=== PATIENT | male | born 2000 | race Caucasian/White ===

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

== ENCOUNTER 2019-07-02 15:26 | Emergency (ER) | payer BC, SELFPAY ==
[2019-07-02 15:28] VITALS: BP 99/67; PULSE 54; RESP 18; TEMP 36.5; O2SAT 99; BMI 24.0
--- NOTE | 2019-07-02 17:29 | US_ITS ---
STUDY: SCROTUM ULTRASOUND REASON FOR EXAM: Male, 19 years old. Pain. Right testicular pain. TECHNIQUE: Ultrasound evaluation of the scrotum was performed with color Doppler and static carbone-scale imaging. COMPARISON: None. FINDINGS: RIGHT TESTICLE INTRATESTICULAR: There is a normal size of the right testicle. The right testicle measures 1.2 x 3.1 x 2.7 cm. There is a homogenous echotexture. There is normal arterial and normal venous vascularity. There is no demonstrated right testicular mass or cyst. EXTRATESTICULAR: The epididymis is mildly enlarged The epididymis head measures 1.7 x 1.3 x 1.1 cm. There is normal vascularity of the epididymis. There is a 0.6 x 0.4 x 0.3 cm epididymal head cyst. There is no demonstrated hydrocele. There is no demonstrated varicocele. There is no demonstrated extratesticular mass or cyst. LEFT TESTICLE INTRATESTICULAR: There is a normal size of the left testicle. The left testicle measures 5.0 x 3.3 x 2.7 cm. There is a homogenous echotexture. There is normal arterial and normal venous vascularity. There is no demonstrated left testicular mass or cyst. EXTRATESTICULAR: The epididymis is normal in size. The epididymis head measures 1.3 x 0.9 x 1.4 cm. There is normal vascularity of the epididymis. 0.4 x 0.6 x 0.2 cm epididymal head cyst. There is no demonstrated hydrocele. There is no demonstrated varicocele. There is no demonstrated extratesticular mass or cyst. US/Testicular with Arterial Flow IMPRESSION: 1. Normal bilateral testicles. 2. Bilateral epididymal head cysts. 3. No other sonographic evidence of scrotal abnormality. Electronically Signed: Dennis Restrepo DO at 18:09 EDT Tel [phone], Service support ,
[2019-07-02 17:30] VITALS: RESP 16
[2019-07-02 18:45] VITALS: RESP 16
--- NOTE | 2019-07-02 20:04 | ED.DCSUM_ITS ---
- ER Visit Summary Date of Service: 07/02/19 Chief Complaint: Right testicular pain History of Present Illness: The patient is a 19 M who presents with right testicular pain that began yesterday. Patient states I think I have a torsion. Patient states the pain is dull. Patient states the pain is on the right testicle. Patient states the pain is worse with standing. Patient denies any discharge or drainage. Patient denies any dysuria or hematuria. Patient denies any abdominal pain. Patient denies any nausea or vomiting. Physical Examination: Vital signs are stable. Patient is afebrile. Patient is in no acute distress. Oral mucosa is pink and moist. Neck is supple. Trachea is midline. There is no JVD noted. Heart was regular rate and rhythm. Lungs are clear and equal bilaterally. Abdomen is soft. Bowel sounds are normal. There is no tenderness. exam shows mild right testicular tenderness. There is no hernia noted. Testicles are in a vertical lie bilaterally. There is no tenderness over the epididymis. Cremasteric reflex is normal bilaterally. Test Results: Ultrasound of the testicle was obtained. There is good flow. There is no evidence of any torsion. Emergency Department Course and Treatment: Patient was advised of his results. Patient was instructed to follow-up with his primary care physician in 5 to 7 days. Patient was instructed to take Tylenol or ibuprofen as needed for pain. Patient understood and was agreeable with plan. All questions were answered. Disposition: Discharge home Impression: Right testicular pain This note was generated with [employer] dictation software. It may contain incorrect words, spelling, and punctuation that were not noted in review of the chart prior to signing ED Disposition - Plan for ED Patient: Disposition: Home or Assisted Living Diagnosis: Right testicular pain Instructions: TESTICULAR PAIN, Unclear Cause Referrals: Care Physician,No Primary [Primary Care Provider] - Yousuf Grant MD [STAFF PHYSICIAN] - 5-7 Days
[2019-07-02 20:18] VITALS: RESP 16
== END 2019-07-02 20:19 | disposition home or self-care (01) ==
PROVIDERS: Emergency Provider Emergency Medicine
DX: N50.811 Right testicular pain (principal)
CPT/HCPCS: 76870; 93976; 99282

== ENCOUNTER → 2020-02-07 11:52 | Outpatient (CLI) | payer BC, SELFPAY ==
--- NOTE | 2020-02-07 11:56 | US_ITS ---
STUDY: SCROTUM ULTRASOUND REASON FOR EXAM: Male, 20 years old. RT TESTICULAR PAIN ON AND OFF 2YRS TECHNIQUE: Ultrasound evaluation of the scrotum was performed with color Doppler and static carbone-scale imaging. COMPARISON: None. FINDINGS: RIGHT TESTICLE INTRATESTICULAR: There is a normal size of the right testicle. The right testicle measures 5.2 cm x 3.2 cm x 3.1 cm. There is a homogenous echotexture. There is normal arterial and normal venous vascularity. There is no demonstrated right testicular mass or cyst. EXTRATESTICULAR: The epididymis is normal in size. The epididymis head measures 1.2 cm x 1.7 cm x 1.1 cm. There is normal vascularity of the epididymis. There is a well-defined cystic structure within the epididymis, without internal echoes, consistent with an epididymal cyst. This measures 5 mm x 7 mm x 4 mm. There is a small hydrocele. There is no demonstrated varicocele. There is no demonstrated extratesticular mass or cyst. LEFT TESTICLE INTRATESTICULAR: There is a normal size of the left testicle. The left testicle measures 5.3 cm x 3.2 cm x 2.7 cm. There is a homogenous echotexture. There is normal arterial and normal venous vascularity. There is no demonstrated left testicular mass or cyst. EXTRATESTICULAR: The epididymis is normal in size. The epididymis head measures 1 cm x 1.6 cm x 1.2 cm. There is normal vascularity of the epididymis. There are multiple small epididymal cysts. The largest measures 4 mm x 3 mm x 4 mm. There is a small hydrocele. There is no demonstrated varicocele. There is no demonstrated extratesticular mass or cyst. US/Testicular with Arterial Flow IMPRESSION: Small bilateral epididymal cysts right greater than left with tiny bilateral hydroceles. Electronically Signed: Rickey Valdez, at 15:40 EDT , Service support ,
== END ==
PROVIDERS: PCP Nurse Practitioner; Referring Provider Nurse Practitioner; Visit Provider Nurse Practitioner
DX: N50.811 Right testicular pain (principal)
CPT/HCPCS: 76870; 93976

== ENCOUNTER 2023-01-16 02:13 | Inpatient (IN) | payer BC, SELFPAY ==
[2023-01-16] VITALS (12 sets, daily range): BP systolic 90–142; BP diastolic 62–76; PULSE 61–96; RESP 15–22; TEMP 36.4–37.7; O2SAT 96–100; BMI 26.4
--- NOTE | 2023-01-16 02:54 | EDS_ITS ---
HPI History of Present Illness Chief Complaint: Chest Other Informant: patient Onset/Context/Timing Onset: Weeks (2) Context: Sudden Onset Timing: Continuous Quality: Popping sensation Location: Right chest Worsened by: Coughing Relieved by: Rest Narrative Narrative: CoughPresents with right-sided chest pain that has been constant for the past 2 weeks. Patient states it started suddenly 2 weeks ago and episode. Patient states he felt some popping in his chest at that time. Patient states that he had another coughing episode tonight and felt the same popping sensation in the right side of his chest. Patient states his pain is worse with coughing. Patient states his pain is better with resting in a comfortable position. Patient denies any shortness of breath. Patient denies any palpitations. Patient does admit to a recent sore throat. Patient denies any fevers or chills. Patient denies any nausea or vomiting. PFSH PFSH Medical History Anxiety and depression Tobacco use Medical History no medical history no medical history Home Medications sertraline 25 mg tablet (Zoloft) 25 mg PO DAILY 01/04/23 [History Last Taken Unknown] amoxicillin 875 mg-potassium clavulanate 125 mg tablet 1 tab PO BID 01/16/23 [History Last Taken Unknown] Allergy/AdvReac Type Severity Reaction Status Date / Time azithromycin Allergy Rash Verified 01/16/23 02:18 iodine Allergy Rash Verified 01/16/23 02:18 Surgical History no surgical history no surgical history Social History Smoking Status: Current every day smoker tobacco type: e-cigarettes ROS ROS ED Constitutional Constitutional ED: Denies chills or fever(s) Eyes Eyes: Denies blurry vision or change in vision ENT ENT ED: Reports sore throat; Denies rhinorrhea Cardiovascular Cardiovascular: Reports chest pain; Denies palpitations Respiratory/Chest Respiratory/Chest: Reports cough; Denies dyspnea Gastrointestinal Gastrointestinal: Denies nausea or vomiting Genitourinary Genitourinary ED: Denies dysuria or hematuria Musculoskeletal Musculoskeletal: Denies back pain or neck pain Integumentary Denies abscess or rash Neurologic Neurologic: Denies headache(s) or weakness Allergic/Immunologic Allergic/Immunologic ED: Denies mouth swelling or urticaria EXAM Physical Exam Const Vital Signs: 01/16/23 02:14 01/16/23 02:18 01/16/23 05:23 Temperature 98.6 F Temperature Source Temporal Pulse Rate 67 70 Respiratory Rate 18 16 Respiratory Pattern Normal Blood Pressure 125/64 H Blood Pressure Mean 84 Pulse Ox 99 Oxygen Delivery Method Room Air 01/16/23 05:19 Temperature Temperature Source Pulse Rate 70 Respiratory Rate 15 Respiratory Pattern Blood Pressure 129/64 H Blood Pressure Mean 85 Pulse Ox 96 Oxygen Delivery Method Room Air Positive well nourished and well developed General Appearance ED: well developed HEENT Reports moist mucous membranes Neck supple and no JVD Resp normal respiratory effort and clear to auscultation bilaterally Cardio regular rate, regular rhythm and no murmurs GI normal to inspection, nondistended, normoactive bowel sounds and non-tender Palpation: soft Extremity normal to inspection General Extremety ED: Negative for edema or tenderness General Extremity: Negative for edema Neuro oriented x3, CN's II-XII intact bilaterally and no sensory deficits noted Sensorium / Orientation: alert Motor Exam: strength 5/5 throughout Psych mental status grossly normal Skin no rashes or lesions noted MDM MDM MDM Narrative Medical decision making narrative: Differential diagnosis includes pneumothorax, pneumonia, and musculoskeletal chest pain. Chest x-ray will be obtained to assess for pneumonia and pneumothorax. Lab Data Attestation: I reviewed the patient's lab results. Lab results narrative: CBC was reviewed and was within normal limits. Comprehensive metabolic profile was reviewed and was within normal limits. COVID-19 rapid antigen was reviewed and was negative. Influenza A and influenza B rapid antigens were reviewed and were negative. Labs: Laboratory Results - last 24 hr 01/16/23 01/16/23 05:30 05:30 WBC 10.8 RBC 4.56 L Hgb 13.6 Hct 41.9 MCV 91.9 MCH 29.8 MCHC 32.5 RDW Std Deviation 42.9 RDW Coeff of Starr 12.8 Plt Count 282 MPV 9.5 Immature Gran % (Auto) 0.200 Neut % (Auto) 71.1 H Lymph % (Auto) 14.9 L [place] % (Auto) 2.4 Eos % (Auto) 10.8 H Baso % (Auto) 0.6 Absolute Neuts (auto) 7.7 Absolute Lymphs (auto) 1.61 Nucleated RBC % 0 Sodium 139 Potassium 4.5 Chloride 106 Carbon Dioxide 29.0 Anion Gap 4 L BUN 18 Creatinine 0.84 Estim Creat Clear Calc 127.87 Est GFR (MDRD) Af Amer 144 Est GFR (MDRD) Non-Af 119 BUN/Creatinine Ratio 21.4 H Glucose 112 H Calcium 9.5 Total Bilirubin 0.20 AST 13 L ALT 16 Alkaline Phosphatase 80 Total Protein 7.0 Albumin 3.9 Globulin 3.1 Albumin/Globulin Ratio 1.3 Radiography Chest X-Ray - ED: 2 View, Read by ED Physician, Read by Radiologist and Right Infiltrate Diagnostic Testing: Clinical Impression(s) from Imaging Studies Chest X-Ray 01/16/23 02:57 IMPRESSION: Focal masslike density right upper lobe may have a subtle lucent center which most likely represents pneumonia. There is a trace right effusion. Given the question of possible cavitation in right effusion recommend consideration for CT scan of the chest Electronically Signed: Ginger Harris MD at 3:21 EST , Chest CTA 01/16/23 03:23 IMPRESSION: Multifocal patchy masslike consolidation ranging in size to 4 to 1.5 cm within the upper lung zones. See image #52 series 601. Some with cavitation. The differential includes the possibility of a post primary tuberculous pneumonia versus the possibility of cavitary pneumonia. Potentially covid could have a cavitary appearance but typically the viral pneumonia is not isolated to the upper lung zones.. The differential include the possibility of septic emboli although thought to BE less likely given the primarily upper lung predominance. Electronically Signed: Ginger Harris MD at 5:09 EST , ADDENDUM: 01/16/23 0520 IMPRESSION: Multifocal patchy masslike consolidation ranging in size to 4 to 1.5 cm within the upper lung zones. See image #52 series 601. Some with cavitation. The differential includes the possibility of a post primary tuberculous pneumonia versus the possibility of cavitary pneumonia. Potentially covid could have a cavitary appearance but typically the viral pneumonia is not isolated to the upper lung zones.. The differential include the possibility of septic emboli although thought to BE less likely given the primarily upper lung predominance. N.B. : The above Results were Read Back by Ginger Harris MD to Ryan Muñoz DO, and understanding confirmed on 01/16/2023 05:13:44 (ET). Electronically Signed: Ginger Harris MD at 5:09 EST , PA and lateral chest x-ray was obtained. There are 2 views. On my independent interpretation, there is a questionable infiltrate in the right upper lobe. Radiologist also interpreted the x-ray and noted question of a possible cavitation in the density which would likely represent pneumonia. There is also trace right pleural effusion. Radiologist recommended CT scan of the chest. CTA of the chest was obtained. There are multifocal patchy masslike consolidations in the upper lung zones bilaterally. There are some with cavitation. There is no evidence of pulmonary embolus. This was interpreted by the radiologist and was also independently reviewed by myself. Treatment and Re-Evaluation Narrative: Patient was given a DuoNeb aerosol here. Patient was given a dose of Naprosyn. Since patient is allergic to iodine, patient was given Benadryl and Solu-Medrol prior to obtaining the CT scan. On further questioning, patient states he has been coughing up occasional yellow sputum. Patient denies any hemoptysis or blood-tinged sputum. Patient denies any fevers or chills. Patient denies any exposure to tuberculosis. Because of the question for the cavitary lesions, further lab work was obtained. CBC was obtained to assess for leukocytosis and anemia. Comprehensive metabolic profile was obtained to assess for hepatic function, renal function, and electrolyte abnormality. Blood cultures were obtained. Sputum culture was ordered. COVID-19 rapid antigen will be obtained to assess for COVID infection. Influenza A and influenza B rapid antigens were will be obtained to assess for influenza infection. Patient was started on Levaquin. The case was discussed with the hospitalist. She will admit the patient to her service. Patient understands and is agreeable with the plan. All questions were answered. Discharge Plan Dx/Rx/DC Orders Clinical Impression: Pneumonia, Chest pain Disposition Disposition: Acute Care Hospital [facility]
--- NOTE | 2023-01-16 02:57 | RAD_ITS ---
STUDY: X-RAY CHEST REASON FOR EXAM: Male, 22 years old. Chest pain TECHNIQUE: PA and lateral views of the chest. COMPARISON: None. FINDINGS: There is a visualized focal masslike density within the right upper lobe this may have a subtle lucent center. There is a trace right effusion. Normal size heart. Normal mediastinum and yesy. Normal visualized pulmonary arteries. Normal visualized aortic arch and descending thoracic aorta. Normal visualized thoracic spine. Normal visualized ribs, clavicles, and shoulders. There is no demonstrated abnormality of the visualized soft tissue structures of the upper abdomen. RAD/Chest PA and Lateral IMPRESSION: Focal masslike density right upper lobe may have a subtle lucent center which most likely represents pneumonia. There is a trace right effusion. Given the question of possible cavitation in right effusion recommend consideration for CT scan of the chest Electronically Signed: Ginger Harris MD at 3:21 EST ,
[2023-01-16] MEDS: Naproxen 250 MG Tablet 500 MG PO (03:04)
--- NOTE | 2023-01-16 03:23 | CT_ITS ---
We are attempting to reach an attending provider to discuss findings. An addendum with communication details will be sent when the communication is complete. STUDY: CTA CHEST REASON FOR EXAM: Male, 22 years old. Mass RADIATION DOSAGE (If Supplied By Facility): CTDIvol = ( 7.60 ) mGy, DLP = ( 301.01 ) mGycm TECHNIQUE: The examination was performed with the intravenous administration of IV 100mL Isovue-370. Post-processing of the angiographic images was performed, with multiplanar reformation and 3D reconstruction. Individualized dose optimization techniques were used for this CT. COMPARISON: Chest x-ray January 16, 2023 FINDINGS: Normal enhancement of the main pulmonary artery and right and left pulmonary arteries. Normal enhancement of the bilateral peripheral pulmonary arteries. There is no demonstrated pulmonary embolism. Normal thoracic aorta and visualized great vessels. There is no demonstrated aortic dissection. Normal heart and pericardium. There is a suggestion that there is residual thymus. Normal hilar regions. Normal visualized trachea and bronchi. There is a visualized focus of consolidation measuring approximately 4.3 x 3.5 x 3.4 cm, within the right apex of the masslike appearance. There is a portion of this density which suggests possible cavitation. There are multifocal smaller densities within the lung apices measuring 1 to 1.5 cm some with lucent centrally located lucencies suggesting cavitation. This process is primarily within the upper lung zones. There is minimal lower lobe atelectasis and/or groundglass opacity. Normal pleura. Normal chest wall structures. Normal osseous structures. Normal visualized upper abdomen. CT/CTA Chest W/WO Contrast IMPRESSION: Multifocal patchy masslike consolidation ranging in size to 4 to 1.5 cm within the upper lung zones. See image #52 series 601. Some with cavitation. The differential includes the possibility of a post primary tuberculous pneumonia versus the possibility of cavitary pneumonia. Potentially covid could have a cavitary appearance but typically the viral pneumonia is not isolated to the upper lung zones.. The differential include the possibility of septic emboli although thought to BE less likely given the primarily upper lung predominance. Electronically Signed: Ginger Harris MD at 5:09 EST ,
[2023-01-16] MEDS: MethylPREDNISolone 125 MG/2 ML Vial 80 MG IV (03:35)
[2023-01-16] MEDS: DiphenhydrAMINE 50 MG/ML Syringe 25 MG IV (03:35)
[2023-01-16] MEDS: Ipratropium/Albuterol Sulfate 3 ML AMPUL.NEB INHALATION ×3 (05:21→20:06)
[2023-01-16 05:39] LABS: Absolute Lymphocyte Count 1.61 X10^3/uL (0.83-4.51); Absolute Neutrophil Count 7.7 X10^3/uL (2.0-7.7); Basophil# 0.06 X10^3/uL; Basophil% 0.6 % (0-1); Eosinophil# 1.17 X10^3/uL; Eosinophils% 10.8 % (0-5); Hematocrit 41.9 % (40-54); Hemoglobin 13.6 g/dL (13.0-16.5); Lymphocyte # 1.61 X10^3/ul (0.83-4.51); Lymphocyte % 14.9 % (19-41); Mean Corp Hgb Conc 32.5 g/dL (32-36); Mean Corpuscular Hgb 29.8 pg (27.0-32.0); Mean Corpuscular Volume 91.9 fL (80-94); Mean Platelet Vol. 9.5 fl (6.2-12.0); Monocyte# 0.26 X10^3/uL; Monocyte% 2.4 % (0-10); NRBC Flagged by Analyzer 0 % (0-5); Neutrophil # 7.68 X10^3/uL (2.7-7.7); Neutrophil % 71.1 % (47-70); Platelet Count 282 K/mm3 (150-450); RBC Distribution Width CV 12.8 % (11.6-14.6); RBC Distribution Width SD 42.9 fl (35.1-43.9); Red Blood Count 4.56 M/mm3 (4.6-6.2); White Blood Count 10.8 K/mm3 (4.4-11.0)
--- NOTE | 2023-01-16 05:53 | HP.PCM_ITS ---
HPI - General General Date of Admission: 01/16/23 Date of Service: 01/16/23 Chief Complaint: Cough, persistent, atypical chest popping with coughing fits. HPI Narrative The patient is a 22 y/o M w/ PMHx: Anxiety and Depression, Tobacco use who presents to the [facility] ED on 01/16/23 with history of 2 to 3-week history of ongoing sinus congestion and pressure as well as facial discomfort in addition to cough with initially mild symptom improvement however patient worsened and at the time did not have any fever, chills, diaphoresis, nausea, emesis or loose stools or any marked dyspnea days it is worsened again with no specific fever, chills, diaphoresis, nausea, emesis or loose stools nor any marked dyspnea prompting initial urgent care evaluation 01/04/23 with prescription for Augmentin at that time and recommendation for repeat evaluation in 7 to 10 days if no improvement or worsening symptoms with patient now presenting secondary to persistent ongoing coughing with constant right-sided chest discomfort that has not abated with coughing episode on evening prior to day of presentation with sensation of a popping during the coughing fit on the right side of the chest with right- sided chest discomfort specifically worsened with coughing and deep inspiratory effort with improvement with rest with concurrent sore throat prompting eventual ED evaluation. Patient denies any shortness of breath, fever, chills, nausea or dyspnea and primarily presented secondary to discomfort to the right chest and persistent coughing. Patient denies any drug usage aside from cannabis including IV drug abuse. He denies any activities which would put him at risk for HIV. He reports being in a monogamous relationship with his girlfriend who is present. Work-up in the ED included T98.6, heart rate 67, BP 125/64, respiratory rate 18, 99% on room air, chest x-ray with a focal masslike density in the right upper lobe with possibly subtle lucent center likely technical account representative of pneumonia with a trace right pleural effusion, follow-up CTPA with multifocal patchy masslike consolidation ranging from 4 to 1.5 cm within the upper lung zones with some cavitation occluding possible primary tuberculosis pneumonia versus possibility of cavitary pneumonia, potentially COVID could have a cavitary appearance but typically the viral pneumonia is not consolidated in the upper zones, differential also includes possible septic emboli although thought to be PE less likely given the primary upper lung predominance. In the ED patient administered naproxen 500 mg p.o. x1, Solu-Medrol 80 mg IV x1, diphenhydramine 25 mg IV x1 both administered secondary to history of rash with iodine administration as well as DuoNeb therapy and Levaquin 750 mg IV x1. PFSH Medical History Anxiety and depression Vaping nicotine dependence, tobacco product Medical History no medical history Home Medications sertraline 25 mg tablet (Zoloft) 25 mg PO DAILY 01/04/23 [History Last Taken Unknown] amoxicillin 875 mg-potassium clavulanate 125 mg tablet 1 tab PO BID 01/16/23 [History Last Taken Unknown] Allergy/AdvReac Type Severity Reaction Status Date / Time azithromycin Allergy Rash Verified 01/16/23 02:18 iodine Allergy Rash Verified 01/16/23 02:18 no significant family history (Denies marked maternal/paternal family history including HD, DM, CA.) Surgical History (Updated 01/16/23 @ 06:[address] Camryn Palma MD) History of tonsillectomy and adenoidectomy Surgical History no surgical history Social History (Updated 01/16/23 @ 06:[address] Camryn Palma MD) household members: other details: Lives with his parents. Smoking Status: Current every day smoker tobacco type: e-cigarettes Electronic Cigarette Use: with nicotine alcohol intake: current alcohol intake frequency: holidays/special occasions only substance use type: does not use ROS ROS Narrative Admission Review of Systems: CONSTITUTIONAL: No weight loss, fever, chills, + weakness or fatigue. HEENT: + Congestion, sore throat although improved. Eyes: No visual loss, blurred vision, double vision or yellow sclerae. Ears, Nose, Throat: No hearing loss, sneezing, runny nose. SKIN: No rash or itching, lesions, wounds. CARDIOVASCULAR: + chest pain, chest pressure or chest discomfort. No palpitations, edema, orthopnea, syncopal events. RESPIRATORY: + Cough occasionally productive. No shortness of breath, wheezing, hemoptysis. GASTROINTESTINAL: No anorexia, nausea, vomiting or diarrhea, abdominal pain, melena, BRBPR. GENITOURINARY: No dysuria, frequency, urgency or retention. NEUROLOGICAL: No headache, dizziness, syncope, paralysis, ataxia, numbness or tingling in the extremities, focal weakness, change in bowel or bladder control, seizure. MUSCULOSKELETAL: No muscle, back pain, joint pain or stiffness. HEMATOLOGIC: No anemia, bleeding or bruising. LYMPHATICS: No enlarged nodes. No history of splenectomy. PSYCHIATRIC: + history of depression or anxiety. ENDOCRINOLOGIC: No reports of sweating, cold or heat intolerance. No polyuria or polydipsia. ALLERGIES: No history of asthma, hives, eczema or rhinitis. Vital Signs Vital Signs Vital Signs: 01/16/23 02:14 01/16/23 02:18 01/16/23 05:23 Temperature 98.6 F Temperature Source Temporal Pulse Rate 67 70 Respiratory Rate 18 16 Respiratory Pattern Normal Blood Pressure 125/64 H Blood Pressure Mean 84 Pulse Ox 99 Oxygen Delivery Method Room Air 01/16/23 05:19 Temperature Temperature Source Pulse Rate 70 Respiratory Rate 15 Respiratory Pattern Blood Pressure 129/64 H Blood Pressure Mean 85 Pulse Ox 96 Oxygen Delivery Method Room Air Weight Weight: 169 lb 1.513 oz Body Mass Index (BMI) 26.4 Physical Exam Narrative Physical Examination: General: Awake, alert, oriented x 3 and cooperative, seated upright in the ED bed, no acute distress. Skin: Normal color, normal turgor, no icterus, no cyanosis. HEENT: AT/NC, EOMI, PERRLA, MMM, no carotid bruits or JVD noted. Lungs: Mildly diminished, mildly decreased effort but no evidence of any distress, despite CT findings no rales, ronchi or wheezing. Heart: Currently regular rate and rhythm; no gallop, rub audible. Abdomen: Soft, NTTP, ND, mildly hyperactive BS, no HSM. Extremities: No cyanosis, clubbing, or edema. Neurological: Patient awake, alert, oriented as noted, cognitive function intact; pupils equally reactive to light and accommodation, cranial nerves II- XII grossly normal, moving all 4 extremities, no focal deficits, strength preserved. Psychiatric: Affect appears mildly fatigued otherwise normal, no acute evidence of depressive or anxiety feelings but does have underlying history. Results Lab / Micro Data Result Diagrams: 01/16/23 05:30 01/16/23 05:30 Labs: Laboratory Results - last 24 hr 01/16/23 05:30: WBC 10.8, RBC 4.56 L, Hgb 13.6, Hct 41.9, MCV 91.9, MCH 29.8, MCHC 32.5, RDW Std Deviation 42.9, RDW Coeff of Starr 12.8, Plt Count 282, MPV 9.5, Immature Gran % (Auto) 0.200, Neut % (Auto) 71.1 H, Lymph % (Auto) 14.9 L, [place] % (Auto) 2.4, Eos % (Auto) 10.8 H, Baso % (Auto) 0.6, Absolute Neuts (auto) 7.7, Absolute Lymphs (auto) 1.61, Nucleated RBC % 0 Micro: Microbiology 01/16/23 05:25 Nasal Secretion SARS-CoV-2 & FLU Antigen (Rapid) - Final Radiology Impression Chest X-Ray 01/16/23 02:57 IMPRESSION: Focal masslike density right upper lobe may have a subtle lucent center which most likely represents pneumonia. There is a trace right effusion. Given the question of possible cavitation in right effusion recommend consideration for CT scan of the chest Electronically Signed: Ginger Harris MD at 3:21 EST , Chest CTA 01/16/23 03:23 IMPRESSION: Multifocal patchy masslike consolidation ranging in size to 4 to 1.5 cm within the upper lung zones. See image #52 series 601. Some with cavitation. The differential includes the possibility of a post primary tuberculous pneumonia versus the possibility of cavitary pneumonia. Potentially covid could have a cavitary appearance but typically the viral pneumonia is not isolated to the upper lung zones.. The differential include the possibility of septic emboli although thought to BE less likely given the primarily upper lung predominance. Electronically Signed: Ginger Harris MD at 5:09 EST , ADDENDUM: 01/16/23 0520 IMPRESSION: Multifocal patchy masslike consolidation ranging in size to 4 to 1.5 cm within the upper lung zones. See image #52 series 601. Some with cavitation. The differential includes the possibility of a post primary tuberculous pneumonia versus the possibility of cavitary pneumonia. Potentially covid could have a cavitary appearance but typically the viral pneumonia is not isolated to the upper lung zones.. The differential include the possibility of septic emboli although thought to BE less likely given the primarily upper lung predominance. N.B. : The above Results were Read Back by Ginger Harris MD to Ryan Muñoz DO, and understanding confirmed on 01/16/2023 05:13:44 (ET). Electronically Signed: Ginger Harris MD at 5:09 EST , Assessment & Plan Assessment/Plan (1) Pneumonia: PLAN: Plan The patient is a 22 y/o M w/ PMHx: Anxiety and Depression, Tobacco use who presents to the [facility] ED on 01/16/23 with history of 2 to 3-week history of ongoing sinus congestion and pressure as well as facial discomfort in addition to cough with initially mild symptom improvement however patient worsened and at the time prompting initial urgent care evaluation 01/04/23 with prescription for Augmentin at that time and recommendation for repeat evaluation in 7 to 10 days if no i mprovement or worsening symptoms with patient now presenting secondary to persistent ongoing coughing. #1. Right upper lobe pneumonia, unclear specific type with cavitation: Will admit to medical surgical floor, pending labs upon requested evaluation of patient, will obtain HIV/hepatitis panel, will obtain COVID PCR and full respiratory viral panel, will obtain sputum mycobacterial assessment, will obtain urine drug screen, maintain on oxygen with wean as tolerated to room air, continue ATC duonebs, PRN albuterol, maintain on IV Zosyn and vancomycin therapy with requested MRSA screen pending further evaluation, pulmonary consulted as well as infectious disease with airborn precautious pending their evaluation to be cautious, encourage HOB, IS parameters w/ pending sputum cultures as well as urine antigens in addition to testing as noted. #2. Anxiety and depression: We will continue patient home low-dose sertraline regimen. #3. Tobacco Abuse: Encouraged cessation, inpatient consultation per RT, NR if desired. #4. DVT prophylaxis: Low risk, encourage ambulation. Admission Evaluation Time spent evaluating chart, patient history, patient evaluation, care planning and discussion with specialists: 60 minutes. Charges/Coding Visit Charges Inpatient E&M: 61932 Init Hosp L2
[2023-01-16 05:56] LABS: ALB/GLOB Ratio 1.3 RATIO (0.9-2.4); AST(SGOT) 13 U/L (15-37); Alanine Aminotransfer ALT/SGPT 16 U/L (16-61); Albumin, Serum 3.9 g/dL (3.2-5.0); Alkaline Phosphatase 80 U/L (45-117); Anion Gap 4 (5-15); BUN 18 mg/dL (7-18); BUN/Creat Ratio 21.4 RATIO (10-20); Calcium,Total 9.5 mg/dL (8.5-10.1); Chloride 106 mmol/L (98-107); Creatinine, Serum 0.84 mg/dL (0.70-1.30); EST Glomerular Filtration Rate 119 mL/min (>60); Est Glom Filt Rate - Afr Amer 144 mL/min (>60); Estimated Creatinine Clearance 127.87 ml/min; Globulin 3.1 g/dL (2.2-4.2); Glucose 112 mg/dL (74-106); Potassium 4.5 mmol/L (3.5-5.1); Sodium Level 139 mmol/L (136-145)
[2023-01-16] MEDS: levoFLOXacin IV 750 MG/150 ML BAG 100 MG IV (05:58)
[2023-01-16 06:46] LABS: Amphetamine Urine VISTA NEGATIVE (<1000 ng/mL); Barbiturate Urine VISTA NEGATIVE (< 200 ng/mL); Benzodiazepine Urine VISTA NEGATIVE (< 200 ng/mL); Cocaine Urine VISTA NEGATIVE (< 300 ng/mL); Ecstacy Urine VISTA NEGATIVE (< 500 ng/mL); Methadone Urine VISTA NEGATIVE (< 300 ng/mL); PCP Urine VISTA NEGATIVE (< 25 ng/mL); THC Urine VISTA POSITIVE (< 50 ng/mL); Vista UDS pH Range 6
--- NOTE | 2023-01-16 06:49 | NURSING ---
312 WHITE PNEUMONIA, CHEST PAIN
--- NOTE | 2023-01-16 07:17 | PCM.HOSP.N ---
Hospitalist Note 22-year-old white male who presented to the emergency department with persistent coughing and atypical chest pain. This has been ongoing for approximately 2 to 3 weeks prior to presentation and had sinus congestion and pressure as well as facial discomfort in the addition to his cough. He was seen in the urgent care on 01/04/2023 and prescribed with Augmentin with recommended reevaluation in 7 to 10 days if no improvement or worsening of symptoms. He presents emergency department with persistent ongoing cough and constant right-sided chest discomfort that had not abated he had a coughing episode the evening prior at which time he had a sensation of popping during a coughing fit on the right side of his chest and his chest discomfort worsened at that time. Pain seems to be pleuritic in nature. He had a concurrent sore throat and evaluation as well. Patient denied any drug use other than cannabis on presentation. He is a monogamous relationship with his girlfriend. Vital signs were overall stable and fairly unremarkable on presentation. CTA of his chest was performed and showed a multifocal patchy masslike consolidation ranging from 4 to 1.5 cm within the upper lung zones demonstrating some cavitation. Patient was placed IV vancomycin and Zosyn were ordered. Pulmonary consultation as well as ID consultation with airborne precautions to the concerns for TB were initiated. Blood cultures have been obtained. COVID/flu testing was negative. Hepatitis and HIV studies were ordered. Oxygen saturations have been 96 to 99% on room air. Pulmonary medicine has been consulted. ID has been consulted.
[2023-01-16 07:45] LABS: HIV - WCH Non-Reactive (Nonreactive); Hepatitis B Surface Antibody Reactive; Hepatitis B Surface Antigen Non-Reactive (Nonreactive); Hepatitis C Antibody Non-Reactive (Nonreactive)
[2023-01-16 07:46] LABS: Procalcitonin < 0.04 ng/mL (0.00-0.09)
[2023-01-16] MEDS: 0.9% Normal Saline 1,000 ML 100 ML IV ×2 (08:26→15:48)
[2023-01-16] MEDS: Sertraline 50 MG Tablet 25 MG PO (09:42)
[2023-01-16 14:33] LABS: M R Staph aureus DNA By PCR Negative (Negative); Probe Check PASS; Specimen Processing Control PASS
--- NOTE | 2023-01-16 14:33 | PCM.RX.CS ---
Consult Pharmacy has been consulted to manage selected antiobiotic: Vancomycin Type of Consult: New start Suspected Infection: Pneumonia Labs: Sodium 139 mmol/L (136-145) 01/16/23 05:30 Potassium 4.5 mmol/L (3.5-5.1) 01/16/23 05:30 Chloride 106 mmol/L (98-107) 01/16/23 05:30 Carbon Dioxide 29.0 mmol/L (21.0-32.0) 01/16/23 05:30 Anion Gap 4 (5-15) L 01/16/23 05:30 BUN 18 mg/dL (7-18) 01/16/23 05:30 Creatinine 0.84 mg/dL (0.70-1.30) 01/16/23 05:30 Est GFR (MDRD) Af Amer 144 mL/min (>60) 01/16/23 05:30 Est GFR (MDRD) Non-Af 119 mL/min (>60) 01/16/23 05:30 BUN/Creatinine Ratio 21.4 RATIO (10-20) H 01/16/23 05:30 Glucose 112 mg/dL (74-106) H 01/16/23 05:30 Microbiology: Microbiology 01/16/23 06:10 Urine, Clean Catch Legionella Antigen - Final 01/16/23 06:10 Urine, Clean Catch Streptococcus pneumoniae Antigen (M - Final 01/16/23 05:25 Nasal Secretion SARS-CoV-2 & FLU Antigen (Rapid) - Final Goal Trough: 15-20 mcg/mL Pharmacy Plan for Drug Dosing: NEW START IV VANCOMYCIN Consulting Physician: Dr. Palma Indication: Pneumonia Goal Trough: 15-20 SrCr: 0.84 CrCl: 128 mls/min Comments: pt received a 2000mg x1 loading dose on 01/16/23 at 1115 Vancomycin Dose: based on pts weight and renal function, recommend an initial dose of 1250mg q8h. trough prior to the 4th total dose. Note: dose calculated using clinical pharmacology. Pending Level: 01/17/23 at 1030 Pharmacy Service will continue to monitor and adjust dosing as required. Follow-Up Labs: Trough Vancomycin - 01/17/23 at 1030
--- NOTE | 2023-01-16 15:32 | CPS ---
sent first TB sample at 15:15, charge nurse aware
[2023-01-17] VITALS (10 sets, daily range): BP systolic 118–147; BP diastolic 61–80; PULSE 65–97; RESP 12–18; TEMP 35.9–37.4; O2SAT 98–100
[2023-01-17] MEDS: Ipratropium/Albuterol Sulfate 3 ML AMPUL.NEB INHALATION ×4 (01:13→19:05)
[2023-01-17] MEDS: 0.9% Normal Saline 1,000 ML 100 ML IV ×2 (02:11→13:30)
[2023-01-17 07:00] LABS: Absolute Lymphocyte Count 2.51 X10^3/uL (0.83-4.51); Absolute Neutrophil Count 5.3 X10^3/uL (2.0-7.7); Basophil# 0.04 X10^3/uL; Basophil% 0.5 % (0-1); Eosinophil# 0.27 X10^3/uL; Eosinophils% 3.1 % (0-5); Hematocrit 38.8 % (40-54); Lymphocyte # 2.51 X10^3/ul (0.83-4.51); Lymphocyte % 29.2 % (19-41); Mean Corp Hgb Conc 33.5 g/dL (32-36); Mean Corpuscular Hgb 30.5 pg (27.0-32.0); Mean Corpuscular Volume 91.1 fL (80-94); Mean Platelet Vol. 9.2 fl (6.2-12.0); Monocyte# 0.46 X10^3/uL; Monocyte% 5.3 % (0-10); NRBC Flagged by Analyzer 0 % (0-5); Neutrophil % 61.6 % (47-70); Platelet Count 234 K/mm3 (150-450); RBC Distribution Width CV 13.1 % (11.6-14.6); RBC Distribution Width SD 43.1 fl (35.1-43.9); Red Blood Count 4.26 M/mm3 (4.6-6.2); White Blood Count 8.6 K/mm3 (4.4-11.0)
[2023-01-17 07:26] LABS: ALB/GLOB Ratio 1.1 RATIO (0.9-2.4); AST(SGOT) 8 U/L (15-37); Alanine Aminotransfer ALT/SGPT 13 U/L (16-61); Albumin, Serum 3.2 g/dL (3.2-5.0); Alkaline Phosphatase 55 U/L (45-117); Anion Gap 7 (5-15); BUN 8 mg/dL (7-18); BUN/Creat Ratio 10.2 RATIO (10-20); Calcium,Total 8.3 mg/dL (8.5-10.1); Chloride 113 mmol/L (98-107); Creatinine, Serum 0.79 mg/dL (0.70-1.30); EST Glomerular Filtration Rate 129 mL/min (>60); Est Glom Filt Rate - Afr Amer 156 mL/min (>60); Estimated Creatinine Clearance 135.97 ml/min; Globulin 2.8 g/dL (2.2-4.2); Glucose 103 mg/dL (74-106); Potassium 3.5 mmol/L (3.5-5.1); Sodium Level 145 mmol/L (136-145)
--- NOTE | 2023-01-17 09:48 | PN.HOSP_ITS ---
Reason for Visit Reason for Visit: Diagnoses Pneumonia, unspecified organism (01/16/23) Subjective Subjective Still has some sharp right-sided pain, cough improving and not as productive, denies shortness of breath or other complaints Objective Data Objective Data Vital Signs: Vital Signs Temp Pulse Resp BP Pulse Ox O2 Del Method 97.1 F L 65 16 121/62 H 100 Room Air 01/17/23 09:18 01/17/23 09:18 01/17/23 09:18 01/17/23 09:18 01/17/23 09:18 01/17/23 09:30 Oxygen Delivery Method Room Air Weight: 76.748 kg Body Mass Index (BMI) 26.4 Intake & Output: Intake and Output for Last 24 Hours 01/15/23 01/16/23 01/17/23 23:59 23:59 23:59 Intake Total 2759.80 / 2759.80 1685 / 1685 Balance 2759.80 / 2759.80 1685 / 1685 Lab / Micro Data Result Diagrams: 01/17/23 06:50 01/17/23 06:50 Labs: Laboratory Results - last 24 hr 01/16/23 08:02: MRSA (PCR) Negative 01/17/23 06:50: WBC 8.6, RBC 4.26 L, Hgb 13.0, Hct 38.8 L, MCV 91.1, MCH 30.5, MCHC 33.5, RDW Std Deviation 43.1, RDW Coeff of Starr 13.1, Plt Count 234, MPV 9.2, Immature Gran % (Auto) 0.300, Neut % (Auto) 61.6, Lymph % (Auto) 29.2, [place] % (Auto) 5.3, Eos % (Auto) 3.1, Baso % (Auto) 0.5, Absolute Neuts (auto) 5.3, Absolute Lymphs (auto) 2.51, Nucleated RBC % 0 01/17/23 06:50: Sodium 145, Potassium 3.5, Chloride 113 H, Carbon Dioxide 25.0, Anion Gap 7, BUN 8, Creatinine 0.79, Estim Creat Clear Calc 135.97, Est GFR (MDRD) Af Amer 156, Est GFR (MDRD) Non-Af 129, BUN/Creatinine Ratio 10.2, Glucose 103, Calcium 8.3 L, Total Bilirubin 0.50, AST 8 L, ALT 13 L, Alkaline Phosphatase 55, Total Protein 6.0 L, Albumin 3.2, Globulin 2.8, Albumin/Globulin Ratio 1.1 Micro: Microbiology 01/16/23 06:07 Mucosa - Nose Respiratory Panel (PCR) - Final 01/16/23 15:15 Sputum, Expectorated/Coughed Gram Stain - Preliminary 01/16/23 06:10 Urine, Clean Catch Legionella Antigen - Final 01/16/23 06:10 Urine, Clean Catch Streptococcus pneumoniae Antigen (M - Final 01/16/23 05:25 Nasal Secretion SARS-CoV-2 & FLU Antigen (Rapid) - Final Physical Exam Narrative General: Alert, oriented, no apparent distress HEENT: Atraumatic, normocephalic Eyes: Anicteric, normal conjunctiva, extraocular movements grossly intact Neck: Supple Respiratory: No wheezes or rhonchi, normal respiratory effort Cardiovascular: Regular rate and rhythm GI: Soft, nontender, nondistended Extremities: No edema Musculoskeletal: Moving all extremities Neuro: No overt focal neurological deficits Skin: No rashes appreciated Psych: Cooperative Assessment & Plan Assessment/Plan (1) Pneumonia: PLAN: Plan #Right-sided lung mass seen on CT -CTA showed multifocal patchy masslike consolidation ranging from 4 to 1.5 cm within the upper lung zones -Is on TB precautions and has been on Vanco and Zosyn and will narrow to Vanco and Unasyn -Blood cultures -ID and pulmonology consulted -Maintaining sats on room air -Spoke with pulmonology, patient refused bron. Will need ambulatory pulse ox to assess for O2 prior to DC -Follow cultures, AFB sputum, fungal sputum -Outpatient complete PFT and repeat CT without contrast scan in 4 to 6 weeks -Recommend cessation of vaping #DVT ppx: Ambulatory, low risk Lilia Ty MD Time spent in the patient's overall evaluation,decision-making process, review of diagnostic data, adjustment of management, discussion with other providers, nursing nursing and ancillary staff involved in patient's care documentation, 26 minutes Charges/Coding Visit Charges Inpatient E&M: 44813 Subs Hosp L2
[2023-01-17 10:51] LABS: Vancomycin, Trough Level 18.4 ug/mL (5.0-15.0)
--- NOTE | 2023-01-17 11:18 | PCM.RX.CS ---
Consult Pharmacy has been consulted to manage selected antiobiotic: Vancomycin Type of Consult: Follow-up Suspected Infection: Pneumonia Labs: Sodium 145 mmol/L (136-145) 01/17/23 06:50 Potassium 3.5 mmol/L (3.5-5.1) 01/17/23 06:50 Chloride 113 mmol/L (98-107) H 01/17/23 06:50 Carbon Dioxide 25.0 mmol/L (21.0-32.0) 01/17/23 06:50 Anion Gap 7 (5-15) 01/17/23 06:50 BUN 8 mg/dL (7-18) 01/17/23 06:50 Creatinine 0.79 mg/dL (0.70-1.30) 01/17/23 06:50 Est GFR (MDRD) Af Amer 156 mL/min (>60) 01/17/23 06:50 Est GFR (MDRD) Non-Af 129 mL/min (>60) 01/17/23 06:50 BUN/Creatinine Ratio 10.2 RATIO (10-20) 01/17/23 06:50 Glucose 103 mg/dL (74-106) 01/17/23 06:50 Vancomycin Trough 18.4 ug/mL (5.0-15.0) H 01/17/23 10:11 Microbiology: Microbiology 01/16/23 15:15 Sputum, Expectorated/Coughed Gram Stain - Preliminary 01/16/23 15:15 Sputum, Expectorated/Coughed Respiratory Culture - Preliminary Appears to be normal respiratory deo. Further studies to follow. 01/16/23 06:07 Mucosa - Nose Respiratory Panel (PCR) - Final 01/16/23 06:10 Urine, Clean Catch Legionella Antigen - Final 01/16/23 06:10 Urine, Clean Catch Streptococcus pneumoniae Antigen (M - Final 01/16/23 05:25 Nasal Secretion SARS-CoV-2 & FLU Antigen (Rapid) - Final Goal Trough: 15-20 mcg/mL Pharmacy Plan for Drug Dosing: VANCOMYCIN LEVEL RECEIVED Current Vancomycin Dose: 1250MG Q8 Number of Doses Received: 3 DOSES BEFORE LEVEL, 1 HUNG AFTER Vancomycin Level: 18.4 MG/DL Hours Since Last Dose: 8 Renal Function: SCR 0.79, CRCL >100 ML/MIN Renal Function Trend: STABLE Lab/Micro: PENDING Vancomycin Plan/Comments: 8 HOUR TROUGH IS WITHIN THERAPEUTIC RANGE, CONTINUE CURRENT DOSING AT THIS TIME AND GET A TROUGH IN 2 DAYS PER POLICY. Pending Level: 01/19/23 @ 1030 Pharmacy Service will continue to monitor and adjust dosing as required.
--- NOTE | 2023-01-17 12:42 | EX.PCM.CONCC ---
Assessment & Plan Assessment/Plan (1) Chest pain: (2) Abnormal CT of the chest: PLAN: Plan RECOMMENDATIONS: 1. Continue rule out for TB 2. Discontinuation of all vaping products 3. Walking oximetry prior to discharge 4. Discontinue antibiotics if culture negative 5. Outpatient complete PFT and repeat CT without contrast scan in 4 to 6 weeks 6. Potential bronchoscopy 7. Continue Toradol for chest pain IMPRESSIONS: 1. Abnormal CT scan Patient with multiple areas of peripheral upper lobe groundglass opacities and some areas suggestive of possible cavitation. Viral work-up has been relatively unremarkable. Hepatitis panel is suggestive of previous hep B immunization without active infection. TB would be a consideration, especially given history of hemoptysis in the past. This should be ruled out. Patient currently on empiric antibiotics pending blood cultures. Doubt embolic pneumonia given upper lobe predominance, but it is peripherally located. Clinical suspicion for an element of pleurisy leading to reported chest pain. Another concern would be lipoid pneumonia associated with vaping products. These should be discontinued immediately. Did discuss with the patient about possibly doing a bronchoscopy with BAL, but he was very resistant at this time to proceed in this manner. Patient will need a walking oximetry prior to discharge. Antibiotics can likely be discontinued once cultures are negative. Patient will need an outpatient complete PFT and CT in 4 to 6 weeks. Patient also seem to be very concerned about cessation of vaping. 2. Anxiety/depression/tobacco abuse/protracted course Complicates care, management, recovery and prognosis. Okay to continue with baseline medications. Patient may benefit from referral to behavioral health to help with anxiety and vaping dependence. HPI Consult Data Date of Consult: 01/17/23 HPI Narrative Reason for Consultation: Abnormal CT HPI Narrative: BENJA YUSUF is a 22 M, with past medical history listed below, who presents to [facility] on 01/16[facility]2023 secondary to ongoing and progressive right-sided chest pain that is been constant for the last 2 weeks. Patient reportedly has had multiple episodes of URI since [place]. Patient states that he had a coughing episode leading to popping in his chest approximately 2 weeks ago. Patient states that initially he was able to make this better by applying pressure to the area. However, on the night prior to presentation patient felt a popping sensation on the right side of his chest after a severe cough. Given progression of pain, patient came in for an evaluation. Patient is not reporting any palpitations. Patient did have a sore throat and a cough productive of thick yellow sputum initially. This has progressed to a dry cough. Patient denies any nausea or vomiting. No fever or chills have been reported. Patient does occasionally sweat at night, but attributes this to sleeping in sweatpants. Patient has been treated with Augmentin in the past with little to no improvement. In the ER, patient was afebrile, normotensive and saturating well on room air. Laboratory work-up showed a white blood cell count of 10.8, hemoglobin of 13.6 and platelets of 282. Chemistry showed an elevated bicarbonate of 29 with a creatinine of 0.84 and a glucose of 112. Liver studies were unremarkable. Chest x-ray showed a masslike focal right upper lobe infiltrate concerning for pneumonia. Patient subsequently had a CT of the chest showing multifocal patchy groundglass opacities measuring 4 mm to 1.5 cm with upper lobe predominance. There is some concern for cavitary pneumonia or septic emboli. Patient was given DuoNebs and naproxen. Viral work-up was unremarkable. Patient did test positive for THC. Given infectious concerns, patient was placed in TB isolation and admitted to the floor for further evaluation. Since being admitted to the hospital, patient overall feels subjectively unchanged. Patient continues to have a periodic cough. Patient is not reporting any significant sputum production. Patient does state that the cough significantly worsens his chest pain. Patient states he does not smoke tobacco on a regular basis. However, patient does vape frequently and states he has done this for years. Patient does report he recently changed his vape of choice to a nicotine salt. Patient has had episodes of hemoptysis in the past, but states these have resolved recently. Patient has never had a pulmonary function test. Patient denies any incarceration or foreign travel. 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 Patient does not report any exposure to foreign citizens. Patient has not had a TB test that he is aware of. Patient has not reported any chest trauma. Review of systems otherwise negative from a constitutional, HEENT, respiratory, cardiovascular, GI, genitourinary, musculoskeletal, skin, neurologic, psychiatric and hematologic system unless stated above. PFSH Medical History Anxiety and depression Vaping nicotine dependence, tobacco product Medical History no medical history Home Medications sertraline 25 mg tablet (Zoloft) 50 mg PO QHS anxiety and depression 01/04/23 [History Last Taken Unknown] amoxicillin 875 mg-potassium clavulanate 125 mg tablet 1 tab PO BID 01/16/23 [History Last Taken Unknown] Allergy/AdvReac Type Severity Reaction Status Date / Time azithromycin Allergy Rash Verified 01/16/23 02:18 iodine Allergy Rash Verified 01/16/23 02:18 Family History no significant family his no significant family history Surgical History History of tonsillectomy and adenoidectomy Surgical History no surgical history Social History household members: other details: Lives with his parents. Smoking Status: Current every day smoker tobacco type: e-cigarettes Electronic Cigarette Use: with nicotine alcohol intake: current alcohol intake frequency: holidays/special occasions only substance use type: does not use ROS ROS Narrative See HPI Physical Exam Const alert, oriented x3 and no apparent distress General Appearance: cooperative and well developed HEENT normocephalic, head/scalp atraumatic and moist oral mucous membranes Eyes PERRL and EOMs intact bilaterally Neck full ROM and no lymphadenopathy Chest Chest Narrative: Pain reproducible on palpation Resp normal respiratory effort and no use of accessory muscles Resp Narrative: Some splinting with deep inhalation Effort and Inspection: able to speak in complete sentences Auscultation: wheezes; Negative for rales or rhonchi Percussion: Negative for dullness Cardio regular rate, regular rhythm, S1 normal heart sound, S2 normal heart sound, no murmurs, no rub and no gallops GI normal to inspection, nondistended, normoactive bowel sounds no CVA tenderness Extremity no clubbing, cyanosis or edema Skin no rashes or lesions noted Skin Narrative: Multiple tattoos noted Neuro oriented x3, CN's II-XII intact bilaterally, moves all extremities and no focal motor deficits Psych cooperative and affect normal Medical Records Data Attestation: I reviewed the patient's medical records Lab / Micro Data Attestation: I reviewed the patient's lab results. Result Diagrams: 01/17/23 06:50 01/17/23 06:50 Labs: Laboratory Results - last 24 hr 01/16/23 08:02: MRSA (PCR) Negative 01/17/23 06:50: WBC 8.6, RBC 4.26 L, Hgb 13.0, Hct 38.8 L, MCV 91.1, MCH 30.5, MCHC 33.5, RDW Std Deviation 43.1, RDW Coeff of Starr 13.1, Plt Count 234, MPV 9.2, Immature Gran % (Auto) 0.300, Neut % (Auto) 61.6, Lymph % (Auto) 29.2, [place] % (Auto) 5.3, Eos % (Auto) 3.1, Baso % (Auto) 0.5, Absolute Neuts (auto) 5.3, Absolute Lymphs (auto) 2.51, Nucleated RBC % 0 01/17/23 06:50: Sodium 145, Potassium 3.5, Chloride 113 H, Carbon Dioxide 25.0, Anion Gap 7, BUN 8, Creatinine 0.79, Estim Creat Clear Calc 135.97, Est GFR (MDRD) Af Amer 156, Est GFR (MDRD) Non-Af 129, BUN/Creatinine Ratio 10.2, Glucose 103, Calcium 8.3 L, Total Bilirubin 0.50, AST 8 L, ALT 13 L, Alkaline Phosphatase 55, Total Protein 6.0 L, Albumin 3.2, Globulin 2.8, Albumin/Globulin Ratio 1.1 01/17/23 10:11: Vancomycin Trough 18.4 H Micro: Microbiology 01/16/23 15:15 Sputum, Expectorated/Coughed Gram Stain - Preliminary 01/16/23 15:15 Sputum, Expectorated/Coughed Respiratory Culture - Preliminary Appears to be normal respiratory deo. Further studies to follow. 01/16/23 06:07 Mucosa - Nose Respiratory Panel (PCR) - Final 01/16/23 06:10 Urine, Clean Catch Legionella Antigen - Final 01/16/23 06:10 Urine, Clean Catch Streptococcus pneumoniae Antigen (M - Final Charges/Coding Visit Charges Inpatient E&M: 59014 Init Hosp L3
--- NOTE | 2023-01-17 13:45 | CASEMGMT ---
RN CM called patient for initial transition planning/care coordination assessment. RN CM introduced self and role at [facility]. Patient alert and oriented. Patient willing to participate in assessment and is able to answer all questions appropriately. Care providers, pharmacy, and demographics verified. Patient wishes to discharge home, denies need for home health at this time. Patient states he has no further needs or concerns at this time. CM to follow for discharge planning needs that may arise. PCP: [facility] Specialists: none Preferred Pharmacy: [facility] Insurance: [email or web address] Prescription Benefit: yes Living Will/HPOA: none LNOK: parents Living Arrangements: Patient lives with parents in a 2 story home. Patient is independent and able to ambulate stairs Transportation: self, parents DME/HHC: Patient does not use DME at home but has access DME. No previous HHC. Will monitor for home oxgyen at discharge. Disposition Plan: Patient to discharge home with family support and follow-up plans in place. Leilani MARTINES, RN, CM
--- NOTE | 2023-01-17 14:35 | CON.PCM.ID_ITS ---
Assessment & Plan Assessment/Plan (1) Abnormal CT of the chest: PLAN: Will order another AFB sputum and fungal sputum cx. Will check asp ergillus, histo, and TB quantiferon. Narrow abx to vanc/unasyn. Bcx pending. Will follow, thank you HPI Consult Data Date of Consult: 01/17/23 HPI Narrative Reason for Consultation: cavitation HPI Narrative: BENJA YUSUF, is a 22 M with minimal PMH, presented 01/16 with several weeks severe R sided pleuritic chest pain, some cough. No fever or chills. Has lost 8lbs unintentionally in past 2 months. No hemoptysis. No known TB exposure, no foreign travel, no prior PPD. 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 Came to ED, CT showed cavitary lesion. Started on vanc/zosyn. Does vape. Full ROS performed and neg except as noted above. PFSH Medical History Anxiety and depression Vaping nicotine dependence, tobacco product Medical History no medical history Home Medications sertraline 25 mg tablet (Zoloft) 50 mg PO QHS anxiety and depression 01/04/23 [History Last Taken Unknown] amoxicillin 875 mg-potassium clavulanate 125 mg tablet 1 tab PO BID 01/16/23 [History Last Taken Unknown] Allergy/AdvReac Type Severity Reaction Status Date / Time azithromycin Allergy Rash Verified 01/16/23 02:18 iodine Allergy Rash Verified 01/16/23 02:18 Family History no significant family his Surgical History History of tonsillectomy and adenoidectomy Surgical History no surgical history Social History household members: other details: Lives with his parents. Smoking Status: Current every day smoker tobacco type: e-cigarettes Electronic Cigarette Use: with nicotine alcohol intake: current alcohol intake frequency: holidays/special occasions only substance use type: does not use Physical Exam Const alert, oriented x3 and no apparent distress General Appearance: cooperative HEENT normocephalic and head/scalp atraumatic Eyes PERRL and EOMs intact bilaterally Neck supple and No nodes Resp normal air movement and clear to auscultation bilaterally Cardio regular rate and regular rhythm GI soft to palpation, non-tender and non-distended Extremity General Extremity: Negative for edema Skin no rashes or lesions noted Neuro CN's II-XII intact bilaterally Lab / Micro Data Attestation: I reviewed the patient's lab results. Result Diagrams: 01/17/23 06:50 01/17/23 06:50 Labs: Laboratory Results - last 24 hr 01/17/23 06:50: WBC 8.6, RBC 4.26 L, Hgb 13.0, Hct 38.8 L, MCV 91.1, MCH 30.5, MCHC 33.5, RDW Std Deviation 43.1, RDW Coeff of Starr 13.1, Plt Count 234, MPV 9.2, Immature Gran % (Auto) 0.300, Neut % (Auto) 61.6, Lymph % (Auto) 29.2, [place] % (Auto) 5.3, Eos % (Auto) 3.1, Baso % (Auto) 0.5, Absolute Neuts (auto) 5.3, Absolute Lymphs (auto) 2.51, Nucleated RBC % 0 01/17/23 06:50: Sodium 145, Potassium 3.5, Chloride 113 H, Carbon Dioxide 25.0, Anion Gap 7, BUN 8, Creatinine 0.79, Estim Creat Clear Calc 135.97, Est GFR (MDRD) Af Amer 156, Est GFR (MDRD) Non-Af 129, BUN/Creatinine Ratio 10.2, Glucose 103, Calcium 8.3 L, Total Bilirubin 0.50, AST 8 L, ALT 13 L, Alkaline Phosphatase 55, Total Protein 6.0 L, Albumin 3.2, Globulin 2.8, Albumin/Globulin Ratio 1.1 01/17/23 10:11: Vancomycin Trough 18.4 H Micro: Microbiology 01/16/23 15:15 Sputum, Expectorated/Coughed Gram Stain - Final 01/16/23 15:15 Sputum, Expectorated/Coughed Respiratory Culture - Pr eliminary Appears to be normal respiratory deo. Further studies to follow. 01/16/23 06:07 Mucosa - Nose Respiratory Panel (PCR) - Final
[2023-01-17] MEDS: Sertraline 50 MG Tablet PO (21:22)
[2023-01-18] VITALS (9 sets, daily range): BP systolic 112–147; BP diastolic 64–76; PULSE 64–95; RESP 14–20; TEMP 35.9–37.2; O2SAT 97–100; BMI 26.9
--- NOTE | 2023-01-18 | SPU_PTH ---
PATIENT: BENJA YUSUF LOC: [facility] U#:[id number] AGE/SX: 22/M ROOM: [facility] RE01/16/[address]: Dr. Lilia Ty MD : 2000 BED: 1 DIS: 01/19/2023 SPEC #: [id number] RECD: 01/18/23 14:00 STATUS: EMMANUELLE KENROY #: [id number] CAROL: 01/18/23 00:[address]: Kirby Deng DEPT: CYTOLOGY RECD BY: Laura Melgoza ENTERED: 01/19/23 10:22 SP TYPE: Sputum Cy OTHR DR: MD Dr. Rachael Hankins MD Dr. Derek Brown, DO Dr. Kathryn Lee, DO Dr. Paige Pierce, MD Dr. Robert Leininger, MD Tissues: Sputum Procedures: Pap Stain (control) Special Stain Group II Special Stain Group I AFB Stain (control) Cytospin Fluid HEADER OPERATION: Not noted PRE-OP DIAGNOSIS: Pneumonia TISSUE SUBMITTED: Sputum #1 for cytology DIAGNOSIS CYTOLOGY Sputum #1 for cytology (cytospin and smears): Negative for malignant cells. See comment. CLAU:bandar 01/19/2023 COMMENT Special stain for acid fast bacilli is negative for organisms; matched control is appropriate. CYTOLOGY STUDY Slides are reviewed. CYTOLOGY GROSS Received is 2 ml of mucoid colorless fluid labeled with the patient's name and and designated per the requisition as sputum #1. Submitted for cytology preparation. / bandar 01/19/2023 TC:5 CPT: 71055, 14013
[2023-01-18] MEDS: Ipratropium/Albuterol Sulfate 3 ML AMPUL.NEB INHALATION ×4 (01:00→19:32)
[2023-01-18 05:49] LABS: Absolute Lymphocyte Count 2.54 X10^3/uL (0.83-4.51); Absolute Neutrophil Count 3.4 X10^3/uL (2.0-7.7); Basophil# 0.06 X10^3/uL; Basophil% 0.8 % (0-1); Eosinophil# 0.89 X10^3/uL; Eosinophils% 12.1 % (0-5); Hematocrit 40.2 % (40-54); Hemoglobin 13.4 g/dL (13.0-16.5); Lymphocyte # 2.54 X10^3/ul (0.83-4.51); Lymphocyte % 34.5 % (19-41); Mean Corp Hgb Conc 33.3 g/dL (32-36); Mean Corpuscular Hgb 30.7 pg (27.0-32.0); Mean Platelet Vol. 9.5 fl (6.2-12.0); Monocyte# 0.45 X10^3/uL; Monocyte% 6.1 % (0-10); NRBC Flagged by Analyzer 0 % (0-5); Neutrophil # 3.41 X10^3/uL (2.7-7.7); Neutrophil % 46.2 % (47-70); Platelet Count 261 K/mm3 (150-450); RBC Distribution Width CV 13.2 % (11.6-14.6); RBC Distribution Width SD 44.6 fl (35.1-43.9); Red Blood Count 4.37 M/mm3 (4.6-6.2); White Blood Count 7.4 K/mm3 (4.4-11.0)
[2023-01-18 06:19] LABS: ALB/GLOB Ratio 1.2 RATIO (0.9-2.4); AST(SGOT) 14 U/L (15-37); Alanine Aminotransfer ALT/SGPT 17 U/L (16-61); Albumin, Serum 3.6 g/dL (3.2-5.0); Alkaline Phosphatase 66 U/L (45-117); Anion Gap 6 (5-15); BUN 8 mg/dL (7-18); BUN/Creat Ratio 12.1 RATIO (10-20); Calcium,Total 8.8 mg/dL (8.5-10.1); Chloride 109 mmol/L (98-107); Creatinine, Serum 0.66 mg/dL (0.70-1.30); EST Glomerular Filtration Rate 157 mL/min (>60); Est Glom Filt Rate - Afr Amer 191 mL/min (>60); Estimated Creatinine Clearance 162.75 ml/min; Globulin 3.1 g/dL (2.2-4.2); Glucose 91 mg/dL (74-106); Potassium 3.5 mmol/L (3.5-5.1); Protein, Total 6.7 g/dL (6.4-8.2); Sodium Level 142 mmol/L (136-145)
--- NOTE | 2023-01-18 07:55 | PN.CC_ITS ---
Assessment & Plan Assessment/Plan (1) Chest pain: (2) Abnormal CT of the chest: PLAN: Plan RECOMMENDATIONS: 1. Okay to DC respiratory isolation if third AFB negative 2. Discontinuation of all vaping products 3. Walking oximetry prior to discharge 4. Antibiotics per infectious disease 5. Outpatient complete PFT and repeat CT without contrast scan in 4 to 6 weeks 6. Potential bronchoscopy if patient is agreeable 7. Continue Toradol for chest pain IMPRESSIONS: 1. Abnormal CT scan Patient with multiple areas of peripheral upper lobe groundglass opacities and some areas suggestive of possible cavitation. Viral work-up has been relatively unremarkable. Patient will need to complete TB rule out with 3 negat amy AFBs. Another will be sent this morning. Ideally, patient would have a bronchoscopy with BAL if this is negative, but patient is not overly agreeable previously. All vape products need to be discontinued immediately. Patient should have a walking oximetry prior to discharge. Outpatient PFT and repeat CT scan in 4 to 6 weeks will likely be needed. If patient is not willing to have a bronchoscopy, likely okay to discharge from a pulmonary perspective with follow- up in our office in 2 weeks to arrange for PFT and CT scan. QuantiFERON is currently pending 2. Anxiety/depression/tobacco abuse/protracted course Complicates care, management, recovery and prognosis. Okay to continue with baseline medications. Patient may benefit from referral to behavioral health to help with anxiety and vaping dependence. Subjective Subjective Patient did well overnight. No acute issues were reported. Patient resting comfortably on my evaluation. Objective Data Objective Data Only 2 AFB smears are in the lab at this time. 1 was canceled secondary to lack of specimen. Vital Signs: Vital Signs Temp Pulse Resp BP Pulse Ox O2 Del Method 35.9 C L 76 18 132/76 H 100 Room Air 01/18/23 03:20 01/18/23 03:20 01/18/23 03:20 01/18/23 03:20 01/18/23 03:20 01/18/23 03:20 Oxygen Delivery Method Room Air Weight: 77.8 kg Body Mass Index (BMI) 26.9 Intake & Output: Intake and Output for Last 24 Hours 01/16/23 01/17/23 01/18/23 23:59 23:59 23:59 Intake Total 2759.80 / 2759.80 5667 / 5967 687 / 687 Balance 2759.80 / 2759.80 5667 / 5967 687 / 687 Lab / Micro Data Attestation: I reviewed the patient's lab results. Result Diagrams: 01/18/23 03:59 01/18/23 03:59 Labs: Laboratory Results - last 24 hr 01/17/23 10:11: Vancomycin Trough 18.4 H 01/18/23 03:59: WBC 7.4, RBC 4.37 L, Hgb 13.4, Hct 40.2, MCV 92.0, MCH 30.7, MCHC 33.3, RDW Std Deviation 44.6 H, RDW Coeff of Starr 13.2, Plt Count 261, MPV 9.5, Immature Gran % (Auto) 0.300, Neut % (Auto) 46.2 L, Lymph % (Auto) 34.5, [place] % (Auto) 6.1, Eos % (Auto) 12.1 H, Baso % (Auto) 0.8, Absolute Neuts (auto) 3.4, Absolute Lymphs (auto) 2.54, Nucleated RBC % 0 01/18/23 03:59: Sodium 142, Potassium 3.5, Chloride 109 H, Carbon Dioxide 27.0, Anion Gap 6, BUN 8, Creatinine 0.66 L, Estim Creat Clear Calc 162.75, Est GFR (MDRD) Af Amer 191, Est GFR (MDRD) Non-Af 157, BUN/Creatinine Ratio 12.1, Glucose 91, Calcium 8.8, Total Bilirubin 0.30, AST 14 L, ALT 17, Alkaline Ph osphatase 66, Total Protein 6.7, Albumin 3.6, Globulin 3.1, Albumin/Globulin Ratio 1.2 Micro: Microbiology 01/16/23 15:15 Sputum, Expectorated/Coughed Gram Stain - Final 01/16/23 15:15 Sputum, Expectorated/Coughed Respiratory Culture - Preliminary Appears to be normal respiratory deo. Further studies to follow. 01/16/23 06:07 Mucosa - Nose Respiratory Panel (PCR) - Final 01/16/23 06:10 Urine, Clean Catch Legionella Antigen - Final 01/16/23 06:10 Urine, Clean Catch Streptococcus pneumoniae Antigen (M - Final 01/16/23 05:25 Nasal Secretion SARS-CoV-2 & FLU Antigen (Rapid) - Final Physical Exam Const alert, oriented x3 and no apparent distress General Appearance: cooperative and well developed HEENT normocephalic, head/scalp atraumatic and moist oral mucous membranes Eyes PERRL and EOMs intact bilaterally Neck full ROM and no lymphadenopathy Chest Chest Narrative: Pain reproducible on palpation Resp normal respiratory effort and no use of accessory muscles Resp Narrative: Some splinting with deep inhalation Effort and Inspection: able to speak in complete sentences Auscultation: wheezes; Negative for rales or rhonchi Percussion: Negative for dullness Cardio regular rate, regular rhythm, S1 normal heart sound, S2 normal heart sound, no murmurs, no rub and no gallops GI normal to inspection, nondistended, normoactive bowel sounds no CVA tenderness Extremity no clubbing, cyanosis or edema Skin no rashes or lesions noted Skin Narrative: Multiple tattoos noted Neuro oriented x3, CN's II-XII intact bilaterally, moves all extremities and no focal motor deficits Psych cooperative and affect normal Charges/Coding Visit Charges Inpatient E&M: 83730 Subs Hosp L2
--- NOTE | 2023-01-18 10:29 | PCM.PN.ID ---
Physical Exam Narrative Feeling about the same, still some cough, no fever Const alert and no apparent distress Resp normal air movement and clear to auscultation bilaterally Cardio regular rate and regular rhythm GI soft to palpation, non-tender and non-distended Skin no rashes or lesions noted ID ID: Route of nutrition/ use of supplements: [] Nutritional Intake: [] IV Site: [] Walter Catheter: [] Assessment & Plan Assessment/Plan (1) Abnormal CT of the chest: PLAN: Pending aspergillus, histo, and TB quantiferon. Cont vanc/unasyn. If AFB smears are neg, ok to d/c isolation. Will follow
--- NOTE | 2023-01-18 12:32 | PCM.PN.HOSP ---
Reason for Visit Reason for Visit: Diagnoses Pneumonia, unspecified organism (01/16/23) Chest pain, unspecified (01/16/23) Abnormal findings on diagnostic imaging of other specified body structures (01/16/23) Subjective Subjective Still has the pain on palpation with inspiration on right lateral chest wall, denies problems with his breathing, still slight cough but minimal sputum production Objective Data Objective Data Vital Signs: Vital Signs Temp Pulse Resp BP Pulse Ox O2 Del Method 98.0 F 79 16 127/69 H 97 Room Air 01/18/23 09:17 01/18/23 09:17 01/18/23 09:17 01/18/23 09:17 01/18/23 09:17 01/18/23 09:32 Oxygen Delivery Method Room Air Weight: 77.8 kg Body Mass Index (BMI) 26.9 Intake & Output: Intake and Output for Last 24 Hours 01/16/23 01/17/23 01/18/23 23:59 23:59 23:59 Intake Total 2759.80 / 2759.80 5667 / 5967 687 / 687 Balance 2759.80 / 2759.80 5667 / 5967 687 / 687 Lab / Micro Data Result Diagrams: 01/18/23 03:59 01/18/23 03:59 Labs: Laboratory Results - last 24 hr 01/18/23 03:59: WBC 7.4, RBC 4.37 L, Hgb 13.4, Hct 40.2, MCV 92.0, MCH 30.7, MCHC 33.3, RDW Std Deviation 44.6 H, RDW Coeff of Starr 13.2, Plt Count 261, MPV 9.5, Immature Gran % (Auto) 0.300, Neut % (Auto) 46.2 L, Lymph % (Auto) 34.5, Gulf % (Auto) 6.1, Eos % (Auto) 12.1 H, Baso % (Auto) 0.8, Absolute Neuts (auto) 3.4, Absolute Lymphs (auto) 2.54, Nucleated RBC % 0 01/18/23 03:59: Sodium 142, Potassium 3.5, Chloride 109 H, Carbon Dioxide 27.0, Anion Gap 6, BUN 8, Creatinine 0.66 L, Estim Creat Clear Calc 162.75, Est GFR (MDRD) Af Amer 191, Est GFR (MDRD) Non-Af 157, BUN/Creatinine Ratio 12.1, Glucose 91, Calcium 8.8, Total Bilirubin 0.30, AST 14 L, ALT 17, Alkaline Phosphatase 66, Total Protein 6.7, Albumin 3.6, Globulin 3.1, Albumin/Globulin Ratio 1.2 Micro: Microbiology 01/16/23 15:15 Sputum, Expectorated/Coughed Gram Stain - Final 01/16/23 15:15 Sputum, Expectorated/Coughed Respiratory Culture - Final Mixed normal respiratory deo. No Streptococcus pneumoniae, beta-hemolytic Streptococcus or Staphylococcus aureus isolated. 01/16/23 05:30 Blood Culture (Wb) - Anticubital Left Blood Culture - Preliminary No growth in 48 hours. 01/16/23 05:25 Blood Culture (Wb) - Anticubital Right Blood Culture - Preliminary No growth in 48 hours. 01/16/23 06:07 Mucosa - Nose Respiratory Panel (PCR) - Final 01/16/23 06:10 Urine, Clean Catch Legionella Antigen - Final 01/16/23 06:10 Urine, Clean Catch Streptococcus pneumoniae Antigen (M - Final 01/16/23 05:25 Nasal Secretion SARS-CoV-2 & FLU Antigen (Rapid) - Final Physical Exam Narrative General: Alert, oriented, no apparent distress HEENT: Atraumatic, normocephalic Eyes: Anicteric, normal conjunctiva, extraocular movements grossly intact Neck: Supple Respiratory: No wheezes or rhonchi, normal respiratory effort Cardiovascular: Regular rate and rhythm GI: Soft, nontender, nondistended Extremities: No edema Musculoskeletal: Moving all extremities Neuro: No overt focal neurological deficits Skin: No rashes appreciated Psych: Cooperative Assessment & Plan Assessment/Plan (1) Pneumonia: PLAN: Plan #Right-sided lung mass seen on CT -CTA showed multifocal patchy masslike consolidation ranging from 4 to 1.5 cm within the upper lung zones -Is on TB precautions and has been on Vanco and Zosyn and will narrow to Vanco and Unasyn -Blood cultures -ID and pulmonology consulted -Maintaining sats on room air -Spoke with pulmonology, patient refused bronc. Will need ambulatory pulse ox to assess for O2 prior to DC -Follow cultures, AFB sputum, fungal sputum -Outpatient complete PFT and repeat CT without contrast scan in 4 to 6 weeks -Recommend cessation of vaping -01/18: We will give topical gel to aid in pain of chest wall, has acid-fast, Aspergillus, histoplasma pending, remains on antibiotics, pulm and ID following #DVT ppx: Ambulatory, low risk Lilia Ty MD Time spent in the patient's overall evaluation,decision-making process, review of diagnostic data, adjustment of management, discussion with other providers, nursing nursing and ancillary staff involved in patient's care documentation, 26 minutes Charges/Coding Visit Charges Inpatient E&M: 49438 Subs Hosp L2
[2023-01-18] MEDS: Sertraline 50 MG Tablet PO (21:17)
[2023-01-18] MEDS: Arthritis Pain Compound 60 CLICK TUBE TOPICAL (21:18)
--- NOTE | 2023-01-19 | SPU_PTH ---
PATIENT: BENJA YUSUF LOC: [facility] U#:[id number] AGE/SX: 22/M ROOM: [facility] RE01/16/[address]: Dr. Lilia Ty MD : 2000 BED: 1 DIS: 01/19/2023 SPEC #: [id number] RECD: 01/19/23 12:11 STATUS: EMMANUELLE KENROY #: [id number] CAROL: 01/19/23 00:[address]: Kirby Deng DEPT: CYTOLOGY RECD BY: Laura Melgoza ENTERED: 01/19/23 12:12 SP TYPE: Sputum Cy OTHR DR: MD Dr. Rachael Hankins MD Dr. Derek Brown, DO Dr. Kathryn Lee, DO Dr. Paige Pierce, MD Dr. Robert Leininger, MD Tissues: Sputum Procedures: Pap Stain (control) Special Stain Group II Special Stain Group I AFB Stain (control) Cytospin Fluid HEADER OPERATION: Not noted PRE-OP DIAGNOSIS: Pneumonia TISSUE SUBMITTED: Sputum #3 for cytology DIAGNOSIS CYTOLOGY Sputum #3 for cytology (smears and cytospin): Negative for malignant cells. See comment. SJ:bandar 01/19/2023 COMMENT Special stain for acid fast bacilli is negative for organisms; matched control is appropriate. The results are reported to Dr. Kirby Edward?s nurse, on 01/19/2023. CYTOLOGY STUDY Slides are reviewed. CYTOLOGY GROSS Received is <1 ml of colorless, slightly mucoid fluid labeled with the patient's name and and designated per the requisition as sputum #3. Submitted for cytology preparation. / bandar 01/19/2023 TC:5 CPT: 21245, 22371
--- NOTE | 2023-01-19 | SPU_PTH ---
PATIENT: BENJA YUSUF LOC: [facility] U#:[id number] AGE/SX: 22/M ROOM: [facility] RE01/16/[address]: Dr. Lilia Ty MD : 2000 BED: 1 DIS: 01/19/2023 SPEC #: [id number] RECD: 01/19/23 10:00 STATUS: EMMANUELLE KENROY #: [id number] CAROL: 01/19/23 00:[address]: Kirby Deng DEPT: CYTOLOGY RECD BY: Laura Melgoza ENTERED: 01/19/23 12:11 SP TYPE: Sputum Cy OTHR DR: MD Dr. Rachael Hankins MD Dr. Derek Brown, DO Dr. Kathryn Lee, DO Dr. Paige Pierce, MD Dr. Robert Leininger, MD Tissues: Sputum Procedures: Pap Stain (control) Special Stain Group II Special Stain Group I AFB Stain (control) Cytospin Fluid HEADER OPERATION: Not noted PRE-OP DIAGNOSIS: Pneumonia TISSUE SUBMITTED: Sputum #2 for cytology DIAGNOSIS CYTOLOGY Sputum #2 for cytology (smears and cytospin): Negative for malignant cells. See comment. SJ:bandar 01/19/2023 COMMENT Special stain for acid fast bacilli is negative for organisms; matched control is appropriate. The results are reported to Dr. Kirby Edward?s nurse, on 01/19/2023. CYTOLOGY STUDY Slides are reviewed. CYTOLOGY GROSS Received is 1 ml of colorless, slightly mucoid fluid labeled with the patient's name and and designated per the requisition as sputum #2. Submitted for cytology preparation. / bandar 01/19/2023 TC:5 CPT: 19555, 48068
[2023-01-19 02:30] VITALS: BP 132/68; PULSE 83; RESP 16; TEMP 36.4; O2SAT 99
[2023-01-19 04:18] VITALS: BMI 26.9
[2023-01-19 04:54] LABS: Absolute Neutrophil Count 3.9 X10^3/uL (2.0-7.7); Basophil# 0.08 X10^3/uL; Basophil% 0.9 % (0-1); Eosinophil# 1.38 X10^3/uL; Eosinophils% 15.9 % (0-5); Hematocrit 40.8 % (40-54); Hemoglobin 13.3 g/dL (13.0-16.5); Lymphocyte % 31.1 % (19-41); Mean Corp Hgb Conc 32.6 g/dL (32-36); Mean Corpuscular Hgb 29.6 pg (27.0-32.0); Mean Corpuscular Volume 90.9 fL (80-94); Mean Platelet Vol. 9.4 fl (6.2-12.0); Monocyte# 0.55 X10^3/uL; Monocyte% 6.3 % (0-10); NRBC Flagged by Analyzer 0 % (0-5); Neutrophil # 3.93 X10^3/uL (2.7-7.7); Neutrophil % 45.5 % (47-70); Platelet Count 277 K/mm3 (150-450); RBC Distribution Width CV 13.1 % (11.6-14.6); RBC Distribution Width SD 43.5 fl (35.1-43.9); Red Blood Count 4.49 M/mm3 (4.6-6.2); White Blood Count 8.7 K/mm3 (4.4-11.0)
[2023-01-19 05:30] LABS: ALB/GLOB Ratio 1.1 RATIO (0.9-2.4); AST(SGOT) 14 U/L (15-37); Alanine Aminotransfer ALT/SGPT 18 U/L (16-61); Albumin, Serum 3.5 g/dL (3.2-5.0); Alkaline Phosphatase 69 U/L (45-117); Anion Gap 7 (5-15); BUN 8 mg/dL (7-18); BUN/Creat Ratio 11.8 RATIO (10-20); Calcium,Total 8.8 mg/dL (8.5-10.1); Chloride 108 mmol/L (98-107); Creatinine, Serum 0.68 mg/dL (0.70-1.30); EST Glomerular Filtration Rate 153 mL/min (>60); Est Glom Filt Rate - Afr Amer 185 mL/min (>60); Estimated Creatinine Clearance 157.96 ml/min; Globulin 3.2 g/dL (2.2-4.2); Glucose 97 mg/dL (74-106); Potassium 3.4 mmol/L (3.5-5.1); Protein, Total 6.7 g/dL (6.4-8.2); Sodium Level 142 mmol/L (136-145)
[2023-01-19 07:58] VITALS: O2SAT 97
[2023-01-19 09:24] VITALS: BP 108/61; PULSE 54; RESP 14; TEMP 36.1; O2SAT 100
[2023-01-19] MEDS: Potassium Chloride Oral Tablet 20 MEQ 40 MEQ PO (09:30)
[2023-01-19] MEDS: Acetaminophen 325 MG Tablet 650 MG PO (09:30)
[2023-01-19] MEDS: guaiFENesin 10 ML UDC (200MG/10ML) 20 ML PO (09:31)
[2023-01-19 09:34] LABS: Acid Fast Stain SEE PATHOLOGY REPORT; Cytology, Body Fluid / CSF SEE PATHOLOGY REPORT
[2023-01-19] MEDS: Arthritis Pain Compound 60 CLICK TUBE TOPICAL (09:36)
[2023-01-19] MEDS: Ketorolac 15 MG/ML Vial IV (10:50)
[2023-01-19 11:01] VITALS: O2SAT 96; O2SAT 99
[2023-01-19 11:19] LABS: Acid Fast Stain SEE PATHOLOGY REPORT; Cytology, Body Fluid / CSF SEE PATHOLOGY REPORT
[2023-01-19 11:28] LABS: Vancomycin, Trough Level 16.5 ug/mL (5.0-15.0)
--- NOTE | 2023-01-19 11:44 | PCM.RX.CS ---
Consult Pharmacy has been consulted to manage selected antiobiotic: Vancomycin Type of Consult: Follow-up Labs: Sodium 142 mmol/L (136-145) 01/19/23 04:13 Potassium 3.4 mmol/L (3.5-5.1) L 01/19/23 04:13 Chloride 108 mmol/L (98-107) H 01/19/23 04:13 Carbon Dioxide 27.0 mmol/L (21.0-32.0) 01/19/23 04:13 Anion Gap 7 (5-15) 01/19/23 04:13 BUN 8 mg/dL (7-18) 01/19/23 04:13 Creatinine 0.68 mg/dL (0.70-1.30) L 01/19/23 04:13 Est GFR (MDRD) Af Amer 185 mL/min (>60) 01/19/23 04:13 Est GFR (MDRD) Non-Af 153 mL/min (>60) 01/19/23 04:13 BUN/Creatinine Ratio 11.8 RATIO (10-20) 01/19/23 04:13 Glucose 97 mg/dL (74-106) 01/19/23 04:13 Vancomycin Trough 16.5 ug/mL (5.0-15.0) H 01/19/23 10:35 Microbiology: Microbiology 01/18/23 14:58 Sputum, Expectorated/Coughed Respiratory Culture - Preliminary Appears to be normal respiratory deo. Further studies to follow. 01/16/23 15:15 Sputum, Expectorated/Coughed Gram Stain - Final 01/16/23 15:15 Sputum, Expectorated/Coughed Respiratory Culture - Final Mixed normal respiratory deo. No Streptococcus pneumoniae, beta-hemolytic Streptococcus or Staphylococcus aureus isolated. 01/16/23 05:30 Blood Culture (Wb) - Anticubital Left Blood Culture - Preliminary No growth in 48 hours. 01/16/23 05:25 Blood Culture (Wb) - Anticubital Right Blood Culture - Preliminary No growth in 48 hours. 01/16/23 06:07 Mucosa - Nose Respiratory Panel (PCR) - Final 01/16/23 06:10 Urine, Clean Catch Legionella Antigen - Final 01/16/23 06:10 Urine, Clean Catch Streptococcus pneumoniae Antigen (M - Final 01/16/23 05:25 Nasal Secretion SARS-CoV-2 & FLU Antigen (Rapid) - Final Goal Trough: 15-20 mcg/mL Pharmacy Plan for Drug Dosing: VANCOMYCIN LEVEL RECEIVED Current Vancomycin Dose: 1250mg IV Q8h Number of Doses Received: 9 Vancomycin Level: 16.5 Hours Since Last Dose: 7hr Renal Function: 0.68/ > 100mL/min Renal Function Trend: stable Lab/Micro: pending Vancomycin Plan/Comments: Patient had a trough drawn which resulted in a value of 16.5 (Goal 15-20). Will continue current dose and recheck a trough in 2 days. Pending Level: 01/21/23 @1030 Pharmacy Service will continue to monitor and adjust dosing as required.
--- NOTE | 2023-01-19 13:52 | PCM.PN.ID ---
Physical Exam Narrative Feeling about the same, no fever, some intermittent thick sputum Const alert and no apparent distress Resp normal air movement and clear to auscultation bilaterally Cardio regular rate and regular rhythm GI soft to palpation, non-tender and non-distended Skin no rashes or lesions noted ID ID: Route of nutrition/ use of supplements: [] Nutritional Intake: [] IV Site: [] Walter Catheter: [] Assessment & Plan Assessment/Plan (1) Abnormal CT of the chest: PLAN: Pending aspergillus, histo, and TB quantiferon. Cont unasyn, will stop vanc. If AFB smears are neg, ok to d/c isolation. Will follow
--- NOTE | 2023-01-19 14:06 | PCM.PN.INT ---
Assessment & Plan Assessment/Plan (1) Chest pain: (2) Abnormal CT of the chest: PLAN: Plan RECOMMENDATIONS: 1. Okay to DC respiratory isolation 2. Discontinuation of all vaping products 3. Okay to discharge from pulmonary perspective 4. Antibiotics per infectious disease 5. Outpatient complete PFT and repeat CT without contrast scan in 4 to 6 weeks 6. Will need a bronchoscopy if there is progression on CT scan as an outpatient 7. Okay to use NSAIDs for pleuritic chest pain IMPRESSIONS: 1. Abnormal CT scan Patient with multiple areas of peripheral upper lobe groundglass opacities and some areas suggestive of possible cavitation. Viral and TB work-up has been unremarkable. Discussed with the patient that the standard of care would be to proceed with a bronchoscopy with BAL. However, patient has significant concerns that the procedure is too many risks. After extensive discussion, patient will follow-up in our office in 2 weeks with a PFT and a repeat CT scan in 4 to 6 weeks. If there is progression of disease, will proceed with a bronchoscopy as an outpatient. Patient has tested negative for TB, so is okay to resume normal activity. Stressed to the patient that there is significant concern for lipoid pneumonia in all vaping products should be discontinued immediately, especially if the plan is to avoid a bronchoscopy in the future. Patient and significant other voiced understanding. 2. Anxiety/depression/tobacco abuse/protracted course Complicates care, management, recovery and prognosis. Okay to continue with baseline medications. Patient may benefit from referral to behavioral health to help with anxiety and vaping dependence. Subjective Subjective Patient did well overnight. No acute issues were reported. Patient subjectively feels unchanged compared to yesterday. Patient is not reporting any significant cough or fever. Patient feels strong enough to go home. Objective Data Objective Data Vital Signs: Vital Signs Temp Pulse Resp BP Pulse Ox O2 Del Method 36.1 C L 54 L 14 108/61 99 Room Air 01/19/23 09:24 01/19/23 09:24 01/19/23 09:24 01/19/23 09:24 01/19/23 11:01 01/19/23 09:30 Oxygen Delivery Method Room Air Weight: 78.1 kg Body Mass Index (BMI) 26.9 Intake & Output: Intake and Output for Last 24 Hours 01/17/23 01/18/23 01/19/23 23:59 23:59 23:59 Intake Total 5667 / 5967 2461 / 2701 1377 / 1377 Output Total 0 / 0 Balance 5667 / 5967 2461 / 2701 1377 / 1377 Lab / Micro Data Attestation: I reviewed the patient's lab results. Result Diagrams: 01/19/23 04:13 01/19/23 04:13 Labs: Laboratory Results - last 24 hr 01/19/23 04:13: WBC 8.7, RBC 4.49 L, Hgb 13.3, Hct 40.8, MCV 90.9, MCH 29.6, MCHC 32.6, RDW Std Deviation 43.5, RDW Coeff of Starr 13.1, Plt Count 277, MPV 9.4, Immature Gran % (Auto) 0.300, Neut % (Auto) 45.5 L, Lymph % (Auto) 31.1, Morris % (Auto) 6.3, Eos % (Auto) 15.9 H, Baso % (Auto) 0.9, Absolute Neuts (auto) 3.9, Absolute Lymphs (auto) 2.70, Nucleated RBC % 0 01/19/23 04:13: Sodium 142, Potassium 3.4 L, Chloride 108 H, Carbon Dioxide 27.0, Anion Gap 7, BUN 8, Creatinine 0.68 L, Estim Creat Clear Calc 157.96, Est GFR (MDRD) Af Amer 185, Est GFR (MDRD) Non-Af 153, BUN/Creatinine Ratio 11.8, Glucose 97, Calcium 8.8, Total Bilirubin 0.40, AST 14 L, ALT 18, Alkaline Phosphatase 69, Total Protein 6.7, Albumin 3.5, Globulin 3.2, Albumin/Globulin Ratio 1.1 01/19/23 10:35: Vancomycin Trough 16.5 H Micro: Microbiology 01/18/23 14:58 Sputum, Expectorated/Coughed Respiratory Culture - Preliminary Appears to be normal respiratory deo. Further studies to follow. 01/16/23 15:15 Sputum, Expectorated/Coughed Gram Stain - Final 01/16/23 15:15 Sputum, Expectorated/Coughed Respiratory Culture - Final Mixed normal respiratory deo. No Streptococcus pneumoniae, beta-hemolytic Streptococcus or Staphylococcus aureus isolated. 01/16/23 05:30 Blood Culture (Wb) - Anticubital Left Blood Culture - Preliminary No growth in 48 hours. 01/16/23 05:25 Blood Culture (Wb) - Anticubital Right Blood Culture - Preliminary No growth in 48 hours. 01/16/23 06:07 Mucosa - Nose Respiratory Panel (PCR) - Final 01/16/23 06:10 Urine, Clean Catch Legionella Antigen - Final 01/16/23 06:10 Urine, Clean Catch Streptococcus pneumoniae Antigen (M - Final 01/16/23 05:25 Nasal Secretion SARS-CoV-2 & FLU Antigen (Rapid) - Final Physical Exam Const alert, oriented x3 and no apparent distress General Appearance: cooperative and well developed HEENT normocephalic, head/scalp atraumatic and moist oral mucous membranes Eyes PERRL and EOMs intact bilaterally Neck full ROM and no lymphadenopathy Chest Chest Narrative: Pain reproducible on palpation Resp normal respiratory effort and no use of accessory muscles Resp Narrative: Some splinting with deep inhalation Effort and Inspection: able to speak in complete sentences Auscultation: wheezes; Negative for rales or rhonchi Percussion: Negative for dullness Cardio regular rate, regular rhythm, S1 normal heart sound, S2 normal heart sound, no murmurs, no rub and no gallops GI normal to inspection, nondistended, normoactive bowel sounds no CVA tenderness Extremity no clubbing, cyanosis or edema Skin no rashes or lesions noted Skin Narrative: Multiple tattoos noted Neuro oriented x3, CN's II-XII intact bilaterally, moves all extremities and no focal motor deficits Psych cooperative and affect normal Charges/Coding Visit Charges Inpatient E&M: 05707 Subs Hosp L2
[2023-01-19 15:09] VITALS: BP 147/83; PULSE 97; RESP 14; TEMP 36; O2SAT 98
--- NOTE | 2023-01-19 15:20 | CASEMGMT ---
Patient does not have a Healthcare Power of Rectifying Attendant or a Healthcare Living Will. Per admission questions patient is not interested in documents. Lyly STALLINGS
[2023-01-19 15:38] LABS: Acid Fast Stain SEE PATHOLOGY REPORT; Cytology, Body Fluid / CSF SEE PATHOLOGY REPORT
--- NOTE | 2023-01-19 17:06 | PCM.DC ---
Discharge Instructions Diet Discharge Diet: No restrictions Activity Discharge Activity: Return to Normal Activity Follow Up Care Test Results: Test results from this visit will be discussed in further detail at your follow-up appointment, if applicable. Discharge Plan Admission Admit Date/Time: 01/16/23 05:42 Primary Reason for Your Visit: Cough Attending Provider: Lilia Ty Primary Care Provider: Rachael Verdin Consulting Providers: Camryn Palma ; Earnest Nelson ; Ivon Kim ; Amado Mejias Instructions Patient Instructions: E Cigarettes and Vaping, ED How to Quit Smoking Additional Instructions / Restrictions: DISCHARGE INSTRUCTIONS PLEASE READ *Please take this with you to your next doctors appointment* -Please call Dr. Briggs office (lung doctor) upon discharge to schedule hospital follow-up appointment within 2 weeks, and will be important that you make this follow-up appointment as you will need a repeat CT scan and lung function testing -It is highly recommended that you quit all tobacco products especially any form of vaping -You have several laboratory values that are pending which will need to be followed up on an outpatient basis. If you do not have access to the patient portal through [facility] would recommend that you sign up for this as results will be available there as well. -You can take ibuprofen or Motrin [id number] for pain control, do not exceed the recommended dosing for each respectively -Please call your primary care provider's office upon discharge to schedule a hospital follow up within 1 week. -For any concerning signs or symptoms please call 911 or proceed to the nearest emergency department Discharge Orders/Prescriptions Prescriptions: Continued sertraline [Zoloft] 25 mg tablet 50 mg PO QHS Discontinued amoxicillin-pot clavulanate 875-125 mg tablet 1 tab PO BID Referrals / Follow Up: Kirby Deng MD [Med Staff - Active Staff] - Within 2 Weeks (Please call Dr. Briggs office (lung doctor) upon discharge to schedule hospital follow-up appointment within 2 weeks) Rachael Verdin MD [Primary Care Provider] - Within 1 Week Disposition Disposition (needs filled in before D/C Order can be placed): Home, Self Care
--- NOTE | 2023-01-19 17:15 | PCM.DC.SUM ---
Providers Date of Admission: 01/16/23 Date of Discharge: 01/19/23 Primary Care Physician: Dr. 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 / Pulmonary Medicine Routine Consulting Provider: Earnest Nelson Reason for Consult: RUL cavitary pneumonia EMERGENT Consult: No Notified: Yes Date Notified: 01/16/23 Time Notified: 05:49 Method of Notification: Text Reason For Visit: RUL CAVITARY PNEUMONIA Diagnosis Discharge Diagnosis (1) Chest pain: Status: Acute Code(s): R07.9 - Chest pain, unspecified (2) Abnormal CT of the chest: Status: Acute Code(s): R93.89 - Abnormal findings on diagnostic imaging of other specified body structures Plan #Abnormal CT scan with right-sided mass #Anxiety and depression #Tobacco use/vaping Medications at Discharge Home Medications sertraline 25 mg tablet (Zoloft) 50 mg PO QHS anxiety and depression 01/04/23 Hospital Course Procedures - (cta chest) Summary of Care Provided Minutes Spent on Discharge: 36 Hospital Course: Is a 22-year-old male with history of tobacco use via vaping who presented to [facility] 01/16 with cough and right-sided chest pain as well as 2 to 3 weeks of ongoing sinus congestion. In the ED he had a CTPA which showed a multifocal patchy masslike consolidation ranging from 4 to 1.5 cm within the upper lung zones with some cavitation concerning for cavitary pneumonia and cannot rule out TB. He was admitted and had infectious disease and pulmonology consults with broad work-up. He was on vancomycin and Zosyn and this was ultimately de-escalated to Unasyn by infectious disease. He did not require oxygen and used as needed medication for his right chest wall pain. His acid-fast cytology x3 was negative, broad work-up still pending however he is stable and would like to go home. Discussed with pulmonology and with infectious disease, infectious disease did not feel he needed to be discharged on antibiotics or follow-up with infectious disease upon discharge and recommended pulm follow-up. He is to follow-up with pulmonology in 2 weeks and will need PFTs and a repeat CT scan with bronc as an outpatient if it worsens. He was offered bronc while inpatient but refused. On day of discharge she had no new complaints, still some right-sided chest wall pain and mild cough without production. Discharge instructions as follows: -Please call Dr. Briggs office (lung doctor) upon discharge to schedule hospital follow-up appointment within 2 weeks, and will be important that you make this follow-up appointment as you will need a repeat CT scan and lung function testing -It is highly recommended that you quit all tobacco products especially any form of vaping -You have several laboratory values that are pending which will need to be followed up on an outpatient basis.? If you do not have access to the patient portal through [facility] would recommend that you sign up for this as results will be available there as well. -You can take ibuprofen or Motrin [id number] for pain control, do not exceed the recommended dosing for each respectively -Please call your primary care provider's office upon discharge to schedule a hospital follow up within 1 week. -For any concerning signs or symptoms please call 911 or proceed to the nearest emergency department Physical Exam Narrative General: Alert, oriented, no apparent distress HEENT: Atraumatic, normocephalic Eyes: extraocular movements grossly intact Neck: Supple Respiratory: normal respiratory effort Cardiovascular: no edema appreciated GI: nondistended Extremities: Moving all extremities Neuro: No overt focal neurological deficits Psych: Cooperative Weight / BMI Weight Weight: 78.1 kg Body Mass Index (BMI) 26.9 ABG / Lab / Microbiology Data Result Diagrams: 01/19/23 04:13 01/19/23 04:13 Laboratory: Laboratory Results - last 24 hr 01/19/23 04:13: WBC 8.7, RBC 4.49 L, Hgb 13.3, Hct 40.8, MCV 90.9, MCH 29.6, MCHC 32.6, RDW Std Deviation 43.5, RDW Coeff of Starr 13.1, Plt Count 277, MPV 9.4, Immature Gran % (Auto) 0.300, Neut % (Auto) 45.5 L, Lymph % (Auto) 31.1, Glascock % (Auto) 6.3, Eos % (Auto) 15.9 H, Baso % (Auto) 0.9, Absolute Neuts (auto) 3.9, Absolute Lymphs (auto) 2.70, Nucleated RBC % 0 01/19/23 04:13: Sodium 142, Potassium 3.4 L, Chloride 108 H, Carbon Dioxide 27.0, Anion Gap 7, BUN 8, Creatinine 0.68 L, Estim Creat Clear Calc 157.96, Est GFR (MDRD) Af Amer 185, Est GFR (MDRD) Non-Af 153, BUN/Creatinine Ratio 11.8, Glucose 97, Calcium 8.8, Total Bilirubin 0.40, AST 14 L, ALT 18, Alkaline Phosphatase 69, Total Protein 6.7, Albumin 3.5, Globulin 3.2, Albumin/Globulin Ratio 1.1 01/19/23 09:25: Acid Fast Stain SEE PATHOLOGY REPORT, Miscellaneous Cytology SEE PATHOLOGY REPORT 01/19/23 10:35: Vancomycin Trough 16.5 H 01/19/23 11:00: Acid Fast Stain SEE PATHOLOGY REPORT, Miscellaneous Cytology SEE PATHOLOGY REPORT 01/19/23 11:17: Acid Fast Stain SEE PATHOLOGY REPORT, Miscellaneous Cytology SEE PATHOLOGY REPORT Microbiology: Microbiology 01/18/23 14:58 Sputum, Expectorated/Coughed Gram Stain - Final 01/18/23 14:58 Sputum, Expectorated/Coughed Respiratory Culture - Preliminary Appears to be normal respiratory deo. Further studies to follow. 01/16/23 15:15 Sputum, Expectorated/Coughed Gram Stain - Final 01/16/23 15:15 Sputum, Expectorated/Coughed Respiratory Culture - Final Mixed normal respiratory deo. No Streptococcus pneumoniae, beta-hemolytic Streptococcus or Staphylococcus aureus isolated. 01/16/23 05:30 Blood Culture (Wb) - Anticubital Left Blood Culture - Preliminary No growth in 48 hours. 01/16/23 05:25 Blood Culture (Wb) - Anticubital Right Blood Culture - Preliminary No growth in 48 hours. 01/16/23 06:07 Mucosa - Nose Respiratory Panel (PCR) - Final 01/16/23 06:10 Urine, Clean Catch Legionella Antigen - Final 01/16/23 06:10 Urine, Clean Catch Streptococcus pneumoniae Antigen (M - Final 01/16/23 05:25 Nasal Secretion SARS-CoV-2 & FLU Antigen (Rapid) - Final D/C Instructions Discharge Diet: No restrictions Meaningful Use Info Meaningful Use Diagnoses (Choose all that apply): None applicable Discharge Plan Admission Admit Date/Time: 01/16/23 05:42 Primary Reason for Your Visit: Cough Attending Provider: Lilia Ty Primary Care Provider: Rcahael Verdin Consulting Providers: Camryn Palma ; Earnest Nelson ; Ivon Kim ; Amado Mejias Instructions Patient Instructions: E Cigarettes and Vaping, ED How to Quit Smoking Additional Instructions / Restrictions: DISCHARGE INSTRUCTIONS PLEASE READ *Please take this with you to your next doctors appointment* -Please call Dr. Briggs office (lung doctor) upon discharge to schedule hospital follow-up appointment within 2 weeks, and will be important that you make this follow-up appointment as you will need a repeat CT scan and lung function testing -It is highly recommended that you quit all tobacco products especially any form of vaping -You have several laboratory values that are pending which will need to be followed up on an outpatient basis. If you do not have access to the patient portal through [facility] would recommend that you sign up for this as results will be available there as well. -You can take ibuprofen or Motrin [id number] for pain control, do not exceed the recommended dosing for each respectively -Please call your primary care provider's office upon discharge to schedule a hospital follow up within 1 week. -For any concerning signs or symptoms please call 911 or proceed to the nearest emergency department Discharge Orders/Prescriptions Prescriptions: Continued sertraline [Zoloft] 25 mg tablet 50 mg PO QHS Discontinued amoxicillin-pot clavulanate 875-125 mg tablet 1 tab PO BID Referrals / Follow Up: Kirby Deng MD [Med Staff - Active Staff] - Within 2 Weeks (Please call Dr. Briggs office (lung doctor) upon discharge to schedule hospital follow-up appointment within 2 weeks) Rachael Verdin MD [Primary Care Provider] - Within 1 Week Disposition Disposition (needs filled in before D/C Order can be placed): Home, Self Care Charges/Coding Visit Charges Inpatient E&M: 96237 Disch Hosp >30min
[2023-01-20 13:08] LABS: QNTFERON TB Mitogen Value > 10.00 IU/mL (.); QNTFERON TB Nil Value 0.04 IU/mL (.); QNTFERON TB1+ Ag Value 0.11 IU/mL (.); QNTFERON TB2+ Ag Value 0.15 IU/mL (.)
[2023-01-20 18:07] LABS: Aspirgillus flavus Negative (Neg:<1:1); Aspirgillus fumigatus Negative (Neg:<1:1); Aspirgillus niger Negative (Neg:<1:1)
[2023-01-20 18:15] LABS: Histoplasma Abs Negative (Neg:<1:1)
[2023-01-20 18:42] LABS: QNTIFERON TB Positive Criteria Negative (Negative)
== END 2023-01-19 17:47 | disposition home or self-care (01) | DRG 392 ==
LOC: ED 06:00 → PCU 06:24
PROVIDERS: Internal Medicine Critical Care Medicine; Internal Medicine Infectious Disease; Admitting Provider Family Medicine; Emergency Provider Emergency Medicine; PCP Internal Medicine; Visit Provider Internal Medicine
DX: R19.8 Other specified symptoms and signs involving the digestive system and abdomen (principal); F17.290 Nicotine dependence, other tobacco product, uncomplicated; F41.9 Anxiety disorder, unspecified; F32.A Depression, unspecified; Z79.899 Other long term (current) drug therapy
CPT/HCPCS: 36415; 71046; 71275; 80053; 80202; 80307; 84145; 85025; 86480; 86606; 86698; 86703; 86706; 86803; 87015; 87040; 87070; 87077; 87101; 87116; 87205; 87206; 87340; 87428; 87449; 87633; 87635; 87641; 88108; 88312; 88313; 94640; 94668; 99284; J7030; J7040; J7050; Q9967; A4216; J0295; U0003; U0005

== ENCOUNTER → 2024-07-05 | Outpatient (CLI) | payer BC, SELFPAY ==
--- NOTE | 2024-07-05 10:07 | US_ITS ---
INDICATION: Epigastric Pain EXAMINATION: Ultrasound US Abdomen Limited (quadrant) TECHNIQUE: Peterson scale and color doppler imaging was performed of the right upper quadrant. COMPARISON: No relevant prior comparison study available FINDINGS: LIVER: The liver is mildly enlarged measuring about 18 cm in length. Liver echogenicity is unremarkable. The portal vein is patent with normal hepatopedal flow. No focal hepatic lesion. There is no free fluid. GALLBLADDER AND BILIARY TREE: No shadowing gallstone, pericholecystic fluid or gallbladder wall thickening is demonstrated. The gallbladder wall measures 1.6 mm. The proximal common bile duct measures 3.1 mm, which is within normal limits for the patient''s age. Sonographic Felton''s sign: Negative. PANCREAS: No focal abnormality is demonstrated in the pancreas. No pancreatic ductal dilatation. RIGHT KIDNEY: The right kidney measures 11.6 cm in length. The renal cortex measures 1 cm. No evidence of hydronephrosis. US/Abdomen Limited IMPRESSION: No acute sonographic abnormality is demonstrated in the right upper quadrant. Mild hepatomegaly. Electronically Signed: Deon Jose MD at 11:38 EDT ,
[2024-07-05 11:05] LABS: Absolute Lymphocyte Count 1.66 X10^3/uL (0.83-4.51); Absolute Neutrophil Count 2.4 X10^3/uL (2.0-7.7); Basophil# 0.05 X10^3/uL; Basophil% 1.1 % (0-1); Eosinophil# 0.26 X10^3/uL; Eosinophils% 5.6 % (0-5); Hematocrit 45.8 % (40-54); Hemoglobin 15.4 g/dL (13.0-16.5); Lymphocyte # 1.66 X10^3/ul (0.83-4.51); Lymphocyte % 35.5 % (19-41); Mean Corp Hgb Conc 33.6 g/dL (32-36); Mean Corpuscular Hgb 30.1 pg (27.0-32.0); Mean Corpuscular Volume 89.6 fL (80-94); Mean Platelet Vol. 9.5 fl (6.2-12.0); Monocyte% 6.4 % (0-10); NRBC Flagged by Analyzer 0 % (0-5); Neutrophil # 2.39 X10^3/uL (2.7-7.7); Neutrophil % 51.2 % (47-70); Platelet Count 247 K/mm3 (150-450); RBC Distribution Width CV 13.2 % (11.6-14.6); RBC Distribution Width SD 43.8 fl (35.1-43.9); Red Blood Count 5.11 M/mm3 (4.6-6.2); White Blood Count 4.7 K/mm3 (4.4-11.0)
[2024-07-05 11:13] LABS: Erythrocyte Sedimentation Rate < 1 mm/hr (0-20)
[2024-07-05 11:38] LABS: Lactic Acid 1.6 mmol/L (0.4-1.9)
[2024-07-05 11:39] LABS: AST(SGOT) 11 U/L (15-37); Alanine Aminotransfer ALT/SGPT 18 U/L (16-61); Albumin, Serum 4.1 g/dL (3.2-5.0); Alkaline Phosphatase 60 U/L (45-117); Amylase 32 U/L (25-115); Anion Gap 6 (5-15); BUN 11 mg/dL (7-18); BUN/Creat Ratio 11.3 RATIO (10-20); Bilirubin, Direct 0.13 mg/dL (0.00-0.30); CRP < 2.90 mg/L (0.0-3.0); Calcium,Total 9.9 mg/dL (8.5-10.1); Chloride 105 mmol/L (98-107); Creatinine, Serum 0.97 mg/dL (0.70-1.30); EST Glomerular Filtration Rate 100 mL/min (>60); Est Glom Filt Rate - Afr Amer 121 mL/min (>60); Globulin 3.6 g/dL (2.2-4.2); Glucose 96 mg/dL (74-106); Lipase 23 U/L (13-75); Potassium 4.7 mmol/L (3.5-5.1); Protein, Total 7.7 g/dL (6.4-8.2); Sodium Level 141 mmol/L (136-145)
== END | disposition home or self-care (01) ==
PROVIDERS: PCP Internal Medicine; Referring Provider Nurse Practitioner Family; Visit Provider Nurse Practitioner Family
DX: R10.13 Epigastric pain (principal)
CPT/HCPCS: 36415; 76705; 80048; 80076; 82150; 83605; 83690; 85025; 85652; 86140

== ENCOUNTER → 2024-08-10 | Outpatient (CLI) | payer BC, SELFPAY ==
--- NOTE | 2024-08-10 08:04 | CT_ITS ---
STUDY: CT ABDOMEN AND PELVIS WITH CONTRAST REASON FOR EXAM: Male, 24 years old. Abdominal pain, hematochezia -- Iodine allergy, premed rx sent RADIATION DOSAGE (If Supplied By Facility): CTDIvol = ( 14.37 ) mGy, DLP = ( 620.43 ) mGycm TECHNIQUE: Transaxial images were obtained from the dome of the diaphragm to the symphysis pubis without oral contrast. IV 100mL Isovue-370 was administered. Sagittal and coronal images were reconstructed. Individualized dose optimization techniques were used for this CT. COMPARISON: None. FINDINGS: The visualized lung bases are unremarkable. The visualized portions of the heart are within normal limits. Normal liver. Normal gallbladder and extrahepatic biliary system. Normal spleen. Normal pancreas. Normal bilateral adrenal glands. Normal right kidney. Normal left kidney. Normal visualized stomach. Normal small intestine. Normal colon. The appendix is visualized and appears normal. Normal abdominal aorta. Normal inferior vena cava. Normal retroperitoneum. Normal urinary bladder. Normal abdominal wall. Normal osseous structures. CT/Abdomen/Pelvis WITH Contrast IMPRESSION: Normal enhanced CT of the abdomen and pelvis. Electronically Signed: Rickey Valdez MD at 10:47 EDT ,
== END | disposition home or self-care (01) ==
PROVIDERS: PCP Internal Medicine; Referring Provider Nurse Practitioner Family; Visit Provider Nurse Practitioner Family
DX: R10.9 Unspecified abdominal pain (principal); K92.1 Melena
CPT/HCPCS: 74177; Q9967

== ENCOUNTER 2025-05-22 14:06 | Emergency (ER) | payer OTHER, SELFPAY ==
[2025-05-22 14:07] VITALS: BP 133/77; PULSE 67; RESP 16; TEMP 36.3; O2SAT 100; BMI 28.8
--- NOTE | 2025-05-22 14:37 | ED.VIS.CHEST ---
HPI History of Present Illness Chief Complaint: Chest Pain [facility] Medical History Vaping nicotine dependence, tobacco product Anxiety and depression Home Medications ?Medication ?Instructions ?Recorded ?Last Taken ?Type ascorbic acid (vitamin C) 500 mg 500 mg PO QDAY 01/15/25 Unknown History tablet calcium carbonate (Tums) 200 mg PO TID PRN 01/15/25 Unknown History duloxetine 30 mg capsule,delayed 30 mg PO QDAY 01/15/25 Unknown History release Allergy/AdvReac Type Severity Reaction Status Date / Time azithromycin Allergy Rash Verified 02/06/25 17:45 iodine Allergy Rash Verified 02/06/25 17:45 Surgical History History of tonsillectomy and adenoidectomy Social History (Updated 01/15/25 @ 15:14 by Jillian Grover) household members: other details: Lives with his parents. Smoking Status: Current every day smoker tobacco type: e-cigarettes Electronic Cigarette Use: with nicotine alcohol intake: current alcohol intake frequency: 3 or more drinks per day Alcohol type: beer substance use type: does not use EXAM Physical Exam Const Vital Signs: 05/22/25 14:07 05/22/25 14:27 05/22/25 16:06 Temperature 97.4 F L Temperature Source Oral Pulse Rate 67 59 L Respiratory Rate 16 10 L Respiratory Effort Normal Blood Pressure 133/77 H 114/75 Blood Pressure Mean 95 88 Pulse Ox 100 100 Oxygen Delivery Method Room Air 05/22/25 18:00 Temperature Temperature Source Pulse Rate 74 Respiratory Rate 15 Respiratory Effort Blood Pressure Blood Pressure Mean Pulse Ox 99 Oxygen Delivery Method [facility] MDM MDM Narrative Medical decision making narrative: HISTORY OF PRESENT ILLNESS: Chief complaint: Chest pain 25-year-old male presents with chest pain to begin 11 AM. He states it was like I was walking through a dream. Notes it began suddenly. Denies associated shortness of breath. He denies vomiting but does note 2 episodes of watery stool today. Denies sick contacts, recent surgery, hospitalization, antibiotics, new foods. Denies pain at this time. No leg swelling. No cough fever or chills. No orthopnea, paroxysmal active dyspnea noted. The patient denies recent surgery in the last 4 weeks or immobilization in the last 3 days, denies previous diagnosis of DVT or PE, hemoptysis, unilateral leg swelling or malignancy with treatment the last 6 months or palliative. No estrogen use noted. Patient denies sudden onset of pain, no tearing sensation, no migratory symptoms, no new numbness, weakness or loss of sensation. Patient denies family history or personal history of Connective tissue disorders (Marfan's Syndrome, Nan Danlos etc) REVIEW OF SYSTEMS: Pertinent positives: Chest pain Pertinent negatives: As per HPI PHYSICAL EXAM: Nursing triage notes reviewed, Vital signs reviewed Constitutional: please see [facility] HENT: MMM Eyes: Pupils equal round and reactive to light, Extraocular muscles intact Neck: No stridor, no JVD, full neck ROM Lungs: Clear to auscultation, No wheezing or rales. No increased work of breathing, no conversational dyspnea, no accessory muscle use, no nasal flaring. No respiratory distress noted Heart: Regular rate and rhythm, No murmurs, No rubs and No gallops, 2+ distal pulses (radial, femoral, posterior tibial) in all extremities Abdomen: Soft, there is no tenderness, rigidity, rebound or guarding, no obvious peritoneal signs, no palpable pulsatile abdominal masses, no auscultated abdominal bruit : No CVAT Extremities: No edema Neuro: No new focal neurological deficits, cranial nerves II through XII intact, 5/5 strength in all present extremities. Intact sensation to light touch in all present extremities, 2+ reflexes bilateral patella tendons. Skin: No rash or lesions noted MEDICAL DECISION MAKING: Chief Complaint: please see HPI External records reviewed: Reviewed prior imaging studies: Reviewed CT of the chest from December 2022 which was read as masslike consolidation in the right chest. He was admitted at this time and started antibiotics which was ultimately de-escalated. No clear source was found although the patient did have a positive fungal culture Factors affecting care: none history of cavitary lung lesion Social determinants of health: History of tobacco use and vaping History obtained from others: Significant other Consults: none [facility] Narrative: The patient was initially hemodynamically stable, afebrile and nontoxic-appearing. Exam without focal cardiopulmonary normalities. No stigmata of CHF, VTE or aortic dissection I considered the following differential diagnosis: ACS, arrhythmia, anemia, electro disturbance, PE, aortic dissection I obtained a broad lab and image workup to further determine if the patient was suffering from a life-threatening etiology. While I considered PE, aortic dissection the patient's history and physical exam not consistent with these diagnoses as such additional testing such as D-dimer or CT scans were not indicated at this time. ALL IMAGES (IF OBTAINED) HAVE BEEN PERSONALLY REVIEWED AND INTERPRETED BY MYSELF. EKG with normal sinus rhythm rate of 71, normal axis, no intervals, no STEMI High-sensitivity troponin is negative, no evidence of myocardial ischemiax2 since ruling out ACS and makes PE much less CBC without leukocytosis, severe anemia, no thrombocytopenia. BMP without evidence of significant electrolyte abnormalities, no anion gap, no acute kidney injury. I have personally reviewed the patient's chest x-ray. Chest x-ray is unremarkable for pulmonary edema, pneumothorax, pneumonia or focal cardiopulmonary abnormality. The synthesis of the patient's history, physical exam, labs imaging shows no acute life or limb threat etiology. The patient is appropriate for discharge home as his vitals are stable his labs images are negative. Strict return precautions were discussed The patient and/or family, caregivers express understanding. The patient and/or family, caregivers agrees with the plan. Shared decision making: I will have a discussion with the patient and or visitors regarding risk/benefits of further testing or admission. They will be made aware of of the risk/benefits inherent in this decision they will be given the opportunity to voice understanding. Total critical care time today provided was at least 0 minutes. This excludes separately billable procedures. Critical care time (if documented) is secondary to the patient having high probability of clinically significant/life threatening deterioration in the patient's condition which required my urgent intervention. Impression: 1. Acute chest pain 2. History of tobacco Dispo: Discharge home This note was generated with Tippr dictation software. It may contain incorrect words, spelling, and punctuation that were not noted in review of the chart prior to signing. Lab Data Labs: Laboratory Results - last 24 hr 05/22/25 05/22/25 15:20 17:36 WBC 7.2 RBC 5.04 Hgb 15.0 Hct 44.2 MCV 87.7 MCH 29.8 MCHC 33.9 RDW Std Deviation 41.9 RDW Coeff of Starr 13.1 Plt Count 294 MPV 9.5 Immature Gran % (Auto) 0.300 Neut % (Auto) 54.9 Lymph % (Auto) 35.2 Bay % (Auto) 7.0 Eos % (Auto) 2.2 Baso % (Auto) 0.4 Absolute Neuts (auto) 3.9 Absolute Lymphs (auto) 2.52 Nucleated RBC % 0 Sodium 138 Potassium 4.0 Chloride 103 Carbon Dioxide 21.2 Anion Gap 14 BUN 13 Creatinine 0.80 Estim Creat Clear Calc 144.67 Est GFR (MDRD) Non-Af 125 BUN/Creatinine Ratio 15.8 Glucose 87 Calcium 9.7 Troponin T High Sens < 6 Troponin T Hi Sens 2 Hr < 6 Radiography Diagnostic Testing: Clinical Impression(s) from Imaging Studies Chest X-Ray 05/22/25 14:53 IMPRESSION: No acute pulmonary process, no interval change Reading Location: [id number] Discharge Plan Triage Chief Complaint: Chest Pain ED Provider: Sai Herrera Dx/Rx/DC Orders Clinical Impression: Chest pain Instructions: Chest Pain [facility] Prescriptions: No Action duloxetine 30 mg capsule,delayed release(DR/EC) 30 mg PO QDAY ascorbic acid (vitamin C) 500 mg tablet 500 mg PO QDAY calcium carbonate [Tums] 200 mg calcium (500 mg) tablet,chewable 200 mg PO TID PRN Primary Care Provider: Lindy Villegas Referrals: Lindy Villegas DO [Primary Care Provider] - Activity Restrictions/Additional Instructions: Thank you for trusting us with your care today! Your labs images were unremarkable. No sign of damage to your heart or other life-threatening issues were identified Please take Tylenol (2 pills, 650 mg), ibuprofen (2 pills, 400 mg) every 6 hours as needed for pain and fever control. Please return to the emergency department if your symptoms change or worsen. Please follow with your primary care physician for further outpatient evaluation and management. Print Language: Turkish Disposition Disposition: Home, Self Care
--- NOTE | 2025-05-22 14:53 | RAD_ITS ---
PROCEDURE: CHEST 1 VIEW (PORTABLE) 05/22/2025 REASON FOR EXAM: CHEST PAIN TECHNIQUE: 2 AP portable views COMPARISON: 01/16/2023 FINDINGS: Hardware: EKG leads overlie the chest Heart: The heart size is normal. Lungs: The lungs are clear. Bones: The bones are unremarkable. Other: RAD/Chest 1 View (Portable) IMPRESSION: No acute pulmonary process, no interval change Reading Location: [id number]
--- NOTE | 2025-05-22 14:53 | RAD_ITS ---
PROCEDURE: CHEST 1 VIEW (PORTABLE) 05/22/2025 REASON FOR EXAM: CHEST PAIN TECHNIQUE: 2 AP portable views COMPARISON: 01/16/2023 FINDINGS: Hardware: EKG leads overlie the chest Heart: The heart size is normal. Lungs: The lungs are clear. Bones: The bones are unremarkable. Other: RAD/Chest 1 View (Portable) IMPRESSION: No acute pulmonary process, no interval change Reading Location: [id number]
--- NOTE | 2025-05-22 14:54 | EKG12_ITS ---
Test Reason : CP Blood Pressure : */* mmHG Vent. Rate : 71 BPM Atrial Rate : 71 BPM P-R Int : 158 ms QRS Dur : 94 ms QT Int : 386 ms P-R-T Axes : 68 66 46 degrees QTcB Int : 419 ms Normal sinus rhythm with sinus arrhythmia Normal ECG Confirmed by JACQUELINE TERRY, ALEAH ([id number]), deputy editor in chief DONNY PERDOMO ([id number]) on 05/23/2025 10:09:05 AM Referred By: Sai Herrera Confirmed By: ALEAH PHILLIPS MD
--- NOTE | 2025-05-22 14:54 | EKG12_ITS ---
Test Reason : CP Blood Pressure : */* mmHG Vent. Rate : 71 BPM Atrial Rate : 71 BPM P-R Int : 158 ms QRS Dur : 94 ms QT Int : 386 ms P-R-T Axes : 68 66 46 degrees QTcB Int : 419 ms Normal sinus rhythm with sinus arrhythmia Normal ECG Confirmed by JACQUELINE TERRY, ALEAH ([id number]), editor managing director DONNY PERDOMO ([id number]) on 05/23/2025 10:09:05 AM Referred By: Sai Herrera Confirmed By: ALEAH PHILLIPS MD
[2025-05-22 15:46] LABS: Hematocrit 44.2 % (40-54); Hemoglobin 15.0 g/dL (13.0-16.5); Immature Granulocytes Count 0.020 X10^3/uL (0.0-0.0); Mean Corp Hgb Conc 33.9 g/dL (32-36); Mean Corpuscular Volume 87.7 fL (80-94); Mean Platelet Vol. 9.5 fl (6.2-12.0); NRBC Flagged by Analyzer 0 % (0-5); Platelet Count 294 K/mm3 (150-450); RBC Distribution Width CV 13.1 % (11.6-14.6); RBC Distribution Width SD 41.9 fl (35.1-43.9); Red Blood Count 5.04 M/mm3 (4.6-6.2); White Blood Count 7.2 K/mm3 (4.4-11.0)
[2025-05-22 16:04] LABS: Troponin T High Sensitivity < 6 ng/L (<=22)
[2025-05-22 16:06] VITALS: BP 114/75; PULSE 59; RESP 10; O2SAT 100
[2025-05-22 16:06] LABS: Anion Gap 14 (5-15); BUN 13 mg/dL (4-19); BUN/Creat Ratio 15.8 RATIO (10-20); Calcium,Total 9.7 mg/dL (7.6-11.0); Carbon Dioxide 21.2 mmol/L (21.0-32.0); Chloride 103 mmol/L (98-108); Estimated Creatinine Clearance 144.67 ml/min (50-250); Glucose 87 mg/dL (70-99); Potassium 4.0 mmol/L (3.3-5.1)
[2025-05-22 18:00] VITALS: PULSE 74; RESP 15; O2SAT 99
[2025-05-22 18:26] LABS: Troponin T High Sens 2 HR < 6 ng/L (<=22)
[2025-05-22 18:39] VITALS: BP 100/69; PULSE 74; RESP 15; TEMP 36.6; O2SAT 99
== END 2025-05-22 18:40 | disposition home or self-care (01) ==
PROVIDERS: Emergency Provider Emergency Medicine; PCP Internal Medicine; Referring Provider Emergency Medicine; Visit Provider Emergency Medicine
DX: R07.9 Chest pain, unspecified (principal); F17.290 Nicotine dependence, other tobacco product, uncomplicated
CPT/HCPCS: 71045; 80048; 84484; 85025; 93005; 99283; A4216

== ENCOUNTER 2025-11-06 07:44 | Emergency (ER) | payer OTHER, SELFPAY ==
[2025-11-06 07:45] VITALS: BP 120/98; PULSE 56; RESP 16; TEMP 36.6; O2SAT 100
--- NOTE | 2025-11-06 08:37 | EDS_ITS ---
HPI HPI - GI History of Present Illness Chief Complaint: Abd Pain Abdominal Pain/Flank Pain Onset: Weeks (2) Context: Gradual Onset Timing: Continuous Quality: Cramping Location: RLQ and LLQ Worsened by: Nothing Relieved by: Nothing Nausea/Vomiting/Emesis GI Symptom: Positive for Nausea and Vomiting Quality: Positive for Nonbilious; Negative for Blood streaks, Coffee ground or Hematemesis Diarrhea/Melena/Hematochezia GI Symptom: Positive for Diarrhea Onset: Weeks (2) Associated Symptoms Associated Symptoms: Negative for Dysuria, Frequency or Hematuria Narrative Narrative: Patient presents with abdominal pain that has been getting worse over the past 2 weeks. Patient states it is constant. Patient dates it is cramping. Patient states it is worse over the lower abdomen. Patient states that whenever he is active and moving, he becomes very fatigued. Patient states nothing makes his pain worse. Patient states nothing makes it better. Patient admits to some nausea and vomiting but states this has improved over the past few days. Patient states he has had some darker stools but they are not black. Patient states he has had some diarrhea. Patient denies any urinary complaints. Patient states that 3 weeks ago he had a tick bite. Patient states he was put on doxycycline for that. Patient states he took that for 1 week. Patient states that that is when his nausea, vomiting, and diarrhea started. [facility] Medical History (Updated 11/06/25 @ 11:[address] Ryan Muñoz, ) Gastroesophageal reflux Vaping nicotine dependence, tobacco product Anxiety and depression Home Medications ?Medication ?Instructions ?Recorded ?Last Taken ?Type ondansetron 4 mg disintegrating 4 mg PO Q8H PRN PRN Na usea #10 tabs 11/06/25 Unknown Rx tablet Allergy/AdvReac Type Severity Reaction Status Date / Time azithromycin Allergy Rash Verified 11/06/25 07:47 iodine Allergy Rash Verified 11/06/25 07:47 Surgical History History of tonsillectomy and adenoidectomy Social History household members: other details: Lives with his parents. Smoking Status: Current every day smoker tobacco type: e-cigarettes Electronic Cigarette Use: with nicotine alcohol intake: current alcohol intake frequency: 3 or more drinks per day Alcohol type: beer substance use type: does not use ROS ROS ED Constitutional Constitutional ED: Reports chills and subjective; Denies fever(s) Eyes Eyes: Denies blurry vision or change in vision ENT ENT ED: Denies rhinorrhea or sore throat Cardiovascular Cardiovascular: Reports chest pain; Denies palpitations Respiratory/Chest Respiratory/Chest: Denies cough or dyspnea Gastrointestinal Gastrointestinal: Reports abdominal pain, diarrhea, nausea and vomiting Genitourinary Genitourinary ED: Denies dysuria or hematuria Musculoskeletal Musculoskeletal: Reports neck pain; Denies back pain Integumentary Denies abscess or rash Neurologic Neurologic: Reports headache(s); Denies weakness Allergic/Immunologic Allergic/Immunologic ED: Denies mouth swelling or urticaria EXAM Physical Exam Const Vital Signs: 11/06/25 07:45 11/06/25 09:44 Temperature 98 F Temperature Source Oral Pulse Rate 56 L 48 L Respiratory Rate 16 14 Blood Pressure 120/98 H 106/55 L Blood Pressure Mean 105 72 Pulse Ox 100 99 Oxygen Delivery Method Room Air Room Air Positive well nourished and well developed General Appearance ED: well developed and NAD HEENT Reports moist mucous membranes normocephalic and atraumatic Neck supple and no JVD Resp normal respiratory effort and clear to auscultation bilaterally Cardio regular rate and regular rhythm GI non-distended Palpation: soft and tender LLQ, RLQ and suprapubic; Negative for guarding or rebound tenderness present Extremity full ROM General Extremety ED: Negative for edema or tenderness General Extremity: Negative for edema Neuro CN's II-XII intact bilaterally, moves all extremities and no sensory deficits noted Sensorium / Orientation: alert Motor Exam: strength 5/5 throughout Psych mental status grossly normal MDM MDM MDM Narrative Medical decision making narrative: Differential diagnosis includes gastroenteritis, bowel obstruction, perforation, gastrointestinal bleeding, electrolyte abnormality, urinary tract infection, pancreatitis, and anxiety. CT scan of the abdomen and pelvis will be obtained to assess for bowel obstruction and perforation. CBC will be obtained to assess for leukocytosis and anemia. Comprehensive metabolic profile will be obtained to assess for hepatic function, renal function, and electrolyte abnormality. Urinalysis will be obtained to assess for urinary tract infection and hematuria. Lipase will be obtained to assess for pancreatitis. History & Record Review Additional record(s) reviewed:: Prior outpatient record, Prior ED visit and Prior labs Lab Data Attestation: I reviewed the patient's lab results. Lab results narrative: CBC was reviewed and was within normal limits. Comprehensive metabolic profile was reviewed and was within normal limits. Lipase was reviewed and was normal at 14. Urinalysis was reviewed. There is no evidence of urinary tract infection or hematuria. Labs: Laboratory Results - last 24 hr 11/06/25 11/06/25 09:11 09:20 WBC 5.6 RBC 5.22 Hgb 15.3 Hct 45.8 MCV 87.7 MCH 29.3 MCHC 33.4 RDW Std Deviation 41.3 RDW Coeff of Starr 12.9 Plt Count 271 MPV 9.7 Immature Gran % (Auto) 0.200 Neut % (Auto) 50.9 Lymph % (Auto) 37.4 [place] % (Auto) 6.0 Eos % (Auto) 4.8 Baso % (Auto) 0.7 Absolute Neuts (auto) 2.9 Absolute Lymphs (auto) 2.10 Nucleated RBC % 0 Sodium 140 Potassium 4.2 Chloride 104 Carbon Dioxide 26.3 Anion Gap 10 BUN 10 Creatinine 0.94 Est GFR (MDRD) Non-Af 114 BUN/Creatinine Ratio 10.6 Glucose 97 Calcium 9.5 Total Bilirubin 0.46 AST 17 ALT 13 Alkaline Phosphatase 63 Total Protein 7.3 Albumin 4.8 Globulin 2.6 Albumin/Globulin Ratio 1.9 Lipase 14 Urine Color Yellow Urine Clarity Clear Urine pH 7.0 Ur Specific [place] 1.015 Urine Protein 30 H Urine Glucose (UA) Normal Urine Ketones Negative Urine Occult Blood Negative Urine Nitrite Negative Urine Bilirubin Negative Urine Urobilinogen Normal Ur Leukocyte Esterase Negative Urine RBC 0 SEEN Urine WBC 0-5 SEEN Ur Squamous Epith Cells 0-5 SEEN Urine Bacteria 0 SEEN Urine Mucus 2+ Radiography Diagnostic Testing: Clinical Impression(s) from Imaging Studies Abdomen/Pelvis CT 11/06/25 09:00 IMPRESSION: UNREMARKABLE NONCONTRAST CT OF THE ABDOMEN AND PELVIS Reading Location: [id number] CT scan of the abdomen and pelvis was obtained. There is no acute abnormality noted. There is no free air or free fluid. This was interpreted by the radiologist. Also independently reviewed the images and did not see any free air or free fluid. Treatment and Re-Evaluation :: Patient is given IV fluids, morphine, and Zofran. Patient was feeling better on reevaluation. Patient was advised of his findings. Patient was instructed to drink plenty of fluids. Patient was instructed to follow-up with his primary care physician in 5 to 7 days. Patient understood and was agreeable with plan. All questions were answered. Discharge Plan Triage Chief Complaint: Abd Pain ED Provider: Ryan Muñoz Dx/Rx/DC Orders Clinical Impression: Nausea, vomiting, and diarrhea, Abdominal pain Instructions: ED Vomiting (Adult) Prescriptions: New ondansetron 4 mg tablet,disintegrating 4 mg PO Q8H PRN PRN (Reason: Nausea) Qty: 10 0RF Stand Alone Forms: ED Work / School Excuse Primary Care Provider: Lindy Villegas Referrals: Lindy Villegas DO [Primary Care Provider, Internal Medicine] - 5-7 Days Print Language: Sinhala Disposition Disposition: Home, Self Care
--- NOTE | 2025-11-06 09:00 | CT_ITS ---
PROCEDURE: ABDOMEN/PELVIS WITHOUT CONT 11/06/2025 REASON FOR EXAM: Abdominal pain. Nausea. Blood in the stool. TECHNIQUE: Procedure Code: [id number] Modality: CT Procedure: ABDOMEN/PELVIS WITHOUT CONT Noncontrast technique limits evaluation of the abdominal and pelvic viscera. Coronal and Sagittal reconstruction series were provided. One or more dose reduction techniques were used (e.g., Automated exposure control, adjustment of the mA and/or kV according to patient size, use of iterative reconstruction technique). RADIATION DOSE SUMMARY: CTDlvol: 7.42 mGy DLP: 409.85 mGycm COMPARISON: August 10, 2024. FINDINGS: Lung bases: The lung bases are clear. Liver: Normal size. No obvious mass. Gallbladder: Unremarkable Spleen: Normal size. Pancreas: Normal size. No surrounding inflammation. Adrenals: Unremarkable Kidneys: No urolithiasis. No hydronephrosis. Bladder: Unremarkable Prostate is normal in size. Bowel: Unremarkable gas pattern. Appendix: Unremarkable Lymph nodes: Unremarkable. Vasculature: The abdominal aorta and IVC contours are normal. Noncontrast technique limits evaluation. Peritoneum / Retroperitoneum: Unremarkable Bones: Straightening of the normal lumbar lordosis most likely secondary to muscular spasm. CT/Abdomen/Pelvis without Cont IMPRESSION: UNREMARKABLE NONCONTRAST CT OF THE ABDOMEN AND PELVIS Reading Location: [id number]
[2025-11-06 09:17] LABS: Red Blood Cells-Urine 0 SEEN /hpf (0-5)
[2025-11-06] MEDS: 0.9% Normal Saline (1000mL) 1,000 ML 999 ML IV (09:21)
[2025-11-06 09:26] LABS: Color, Urine Yellow (Yellow); Glucose, Dipstick Normal (Normal); Ketone-Dipstick Negative (Negative); Leukocyte Esterase-Dipstick Negative /ul (Negative); Nitrite-Dipstick Negative (Negative); Occult Blood-Urine Negative /ul (Negative); Protein-Dipstick 30 mg/dl (Negative); Specific Gravity, Urine 1.015 (1.002-1.030); Urine Bilirubin Dipstick Negative (Negative)
[2025-11-06 09:28] LABS: Hematocrit 45.8 % (40-54); Hemoglobin 15.3 g/dL (13.0-16.5); Immature Granulocytes Count 0.010 X10^3/uL (0.0-0.0); Mean Corp Hgb Conc 33.4 g/dL (32-36); Mean Corpuscular Volume 87.7 fL (80-94); Mean Platelet Vol. 9.7 fl (6.2-12.0); NRBC Flagged by Analyzer 0 % (0-5); Platelet Count 271 K/mm3 (150-450); RBC Distribution Width CV 12.9 % (11.6-14.6); RBC Distribution Width SD 41.3 fl (35.1-43.9); Red Blood Count 5.22 M/mm3 (4.6-6.2); White Blood Count 5.6 K/mm3 (4.4-11.0)
--- OUTSIDE RECORDS SUMMARY | 2025-11-06 09:39 | XMS RPT_ITS | CCD ---
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 19-41 [facility] Comment on above: Performed By: #### L 100.0100, L500.2500 ####[facility] [address] [place], [address] MCH (RBC) [Entitic mass] 29.8 pg Normal 27.0-32.0 [facility] Comment on above: Performed By: #### L 100.0100, L500.2500 ####[facility] [address] [place], [address] MCHC (RBC) [Mass/Vol] 33.9 g/dL Normal 32-36 [facility] Comment on above: Performed By: #### L 100.0100, L500.2500 ####[facility] [address] [place], [address] MCV (RBC) [Entitic vol] 87.7 fL Normal 80-94 [facility] Comment on above: Performed By: #### L 100.0100, L500.2500 ####[facility] [address] [place], [address] Monocytes/100 WBC (Bld) 7.0 % Normal 0-10 [facility] Comment on above: Performed By: #### L 100.0100, L500.2500 ####[facility] [address] [place], [address] Neutrophils/100 WBC (Bld) 54.9 % Normal 47-70 [facility] Comment on above: Performed By: #### L 100.0100, L500.2500 ####[facility] [address] [place], [address] Nucleated RBC (Bld) [#/Vol] 0 10*3/uL Normal 0-5 [facility] Comment on above: Performed By: #### L 100.0100, L500.2500 ####[facility] [address] [place], [address] Platelet mean volume (Bld) [Entitic vol] 9.5 fL Normal 6.2-12.0 [facility] Comment on above: Performed By: #### L 100.0100, L500.2500 ####[facility] [address] [place], [address] Platelets (Bld) [#/Vol] 294 10*3/uL Normal 150-450 [facility] Comment on above: Performed By: #### L 100.0100, L500.2500 ####[facility] [address] [place], [address] RBC (Bld) [#/Vol] 5.04 10*6/uL Normal 4.6-6.2 [facility] Comment on above: Performed By: #### L 100.0100, L500.2500 ####[facility] [address] [place], [address] RDW SD 41.9 fl Normal 35.1-43.9 [facility] Comment on above: Performed By: #### L 100.0100, L500.2500 ####[facility] [address] [place], [address] WBC (Bld) [#/Vol] 7.2 10*3/uL Normal 4.4-11.0 [facility] Comment on above: Performed By: #### L 100.0100, L500.2500 ####[facility] [address] [place], [address] Carbon dioxide, total [Moles /volume] in Central venous bloodOrdered By: Sai Herrera on 05-22-2025 CO2 [Moles/Vol] 21.2 mmol/L 21.0-32.0 [facility] Chest 1 View (Portable)on Chest 1 View (Portable) [facility] Imaging Services [address] [place] [address] Chest 1 View (Portable) MR#: [id number] Acct: [id number] Name: ROYCE YUSUF Rep #: [id number] : 2000 M 25 From: Sen Quintero MD PCP: Dr. Lindy Villegas, DO Status: REG ER Study: Chest 1 View (Portable) Date of Exam: 05/22/25 Exam# [id number] Ordering Dr: Sai Herrera DO PROCEDURE: CHEST 1 VIEW (PORTABLE) 05/22/2025 REASON FOR EXAM: CHEST PAIN TECHNIQUE: 2 AP portable views COMPARISON: 01/16/2023 FINDINGS: Hardware: EKG leads overlie the chest Heart: The heart size is normal. Lungs: The lungs are clear. Bones: The bones are unremarkable. Other: RAD/Chest 1 View (Portable) IMPRESSION: No acute pulmonary process, no interval change Reading Location: [id number] CC: Dr. Lindy Villegas DO; Dr. Sai Herrera DO Physicist Cryogenics: Signed Normal [facility] Chloride assayOrdered By: Deepthi Herrera on 05-22-2025 Chloride [Moles/Vol] 103 mmol/L 98-108 [facility] Emergency Department Summary on 05-22-2025 Emergency Department Summary [facility] Medical Records Department [address] [place] [address] Emergency Department Summary 05/22/25 MR#: [id number] Acct: [id number] Name: ROYCE YUSUF Rep #: [id number] : 2000 25 From: Sai Herrera DO PCP: Dr. Lindy Villegas DO Status:REG ER Location: ED HPI History of Present Illness Chief Complaint: Chest Pain [facility] Medical History Vaping nicotine dependence, tobacco product Anxiety and depression Home Medications ???Medication ???Instructions ???Recorded ???Last Taken ???Type ascorbic acid (vitamin C) 500 mg 500 mg PO QDAY 01/15/25 Unknown Hi story tablet calcium carbonate (Tums) 200 mg PO TID PRN 01/15/25 Unknown History duloxetine 30 mg capsule,delayed 30 mg PO QDAY 01/15/25 Unknown His tory release Allergy/AdvReac Type Severity Reaction Status Date / Time azithromycin Allergy Rash Verified 02/06/25 17:45 iodine Allergy Rash Verified 02/06/25 17:45 Surgical History History of tonsillectomy and adenoidectomy Social History (Updated 01/15/25 @ 15:14 by Jillian Grover) household members: other details: Lives with his parents. Smoking Status: Current every day smoker tobacco type: e-cigarettes Electronic Cigarette Use: with nicotine alcohol intake: current alcohol intake frequency: 3 or more drinks per day Alcohol type: beer substance use type: does not use EXAM Physical Exam Const Vital Signs: 05/22/25 14:07 05/22/25 14:27 05/22/25 16:06 Temperature 97.4 F L Temperature Source Oral Pulse Rate 67 59 L Respiratory Rate 16 10 L Respiratory Effort Normal Blood Pressure 133/77 H 114/75 Blood Pressure Mean 95 88 Pulse Ox 100 100 Oxygen Delivery Method Room Air 05/22/25 18:00 Temperature Temperature Source Pulse Rate 74 Respiratory Rate 15 Respiratory Effort Blood Pressure Blood Pressure Mean Pulse Ox 99 Oxygen Delivery Method MDM MDM MDM Narrative Medical decision making narrative: HISTORY OF PRESENT ILLNESS: Chief complaint: Chest pain 25-year-old male presents with chest pain to begin 11 AM. He states it was like I was walking through a dream. Notes it began suddenly. Denies associated shortness of breath. He denies vomiting but does note 2 episodes of watery stool today. Denies sick contacts, recent surgery, hospitalization, antibiotics, new foods. Denies pain at this time. No leg swelling. No cough fever or chills. No orthopnea, paroxysmal active dyspnea noted. The patient denies recent surgery in the last 4 weeks or immobilization in the last 3 days, denies previous diagnosis of DVT or PE, hemoptysis, unilateral leg swelling or malignancy with treatment the last 6 months or palliative. No estrogen use noted. Patient denies sudden onset of pain, no tearing sensation, no migratory symptoms, no new numbness, weakness or loss of sensation. Patient denies family history or personal history of Connective tissue disorders (Marfan's Syndrome, Nan Danlos etc) REVIEW OF SYSTEMS: Pertinent positives: Chest pain Pertinent negatives: As per HPI PHYSICAL EXAM: Nursing triage notes reviewed, Vital signs reviewed Constitutional: please see mdm HENT: MMM Eyes: Pupils equal round and reactive to light, Extraocular muscles intact Neck: No stridor, no JVD, full neck ROM Lungs: Clear to auscultation, No wheezing or rales. No increased work of breathing, no conversational dyspnea, no accessory muscle use, no nasal flaring. No respiratory distress noted Heart: Regular rate and rhythm, No murmurs, No rubs and No gallops, 2+ distal pulses (radial, femoral, posterior tibial) in all extremities Abdomen: Soft, there is no tenderness, rigidity, rebound or guarding, no obvious peritoneal signs, no palpable pulsatile abdominal masses, no auscultated abdominal bruit : No CVAT Extremities: No edema Neuro: No new focal neurological deficits, cranial nerves II through XII intact, 5/5 strength in all present extremities. Intact sensation to light touch in all present extremities, 2+ reflexes bilateral patella tendons. Skin: No rash or lesions noted MEDICAL DECISION MAKING: Chief Complaint: please see HPI External records reviewed: Reviewed prior imaging studies: Reviewed CT of the chest from December 2022 which was read as masslike consolidation in the right chest. He was admitted at this time and started antibiotics which was ultimately de-escalated. No clear source was found although the patient did have a positive fungal culture Factors affecting care: none history of cavitary lung lesion Social determinants of health: History of tobacco use and vaping History obtained from others: Si (more content not included)... Normal [facility] Eosinophil percentageOrdered By: Sai Herrera on 05-22-2025 Eosinophils/100 WBC (Bld) 2.2 % 0-5 [facility] Erythrocyte distribution wid th ratioOrdered By: Sai Herrera on 05-22-2025 Erythrocyte distribution width (RBC) [Ratio] 13.1 % 11.6-14.6 [facility] Erythrocyte distribution wid th standard deviationOrdered By: Sai Herrera on 05-22-2025 Erythrocyte distribution width (RBC) [Ratio] 41.9 fl 35.1-43.9 [facility] Glomerular filtration rate ( GFR) estimation/1.73 sq m using serum, plasma, or whole bOrdered By: Sai Herrera on 05-22-2025 GFR/1.73 sq M.predicted among non-blacks MDRD (S/P/Bld) [Vol rate/Area] 125 mL/min/{1.73_m2} >60 [facility] Comment on above: mL/min/1.73m2 CKD-EP I Creatinine Equation (2020) Hematocrit Auto (Bld) [Volum e fraction]Ordered By: Sai Herrera on 05-22-2025 Hematocrit (Bld) [Volume fraction] 44.2 % 40-54 [facility] Hemoglobin measurementOrdere d By: Sai Herrera on 05-22-2025 Hemoglobin (Bld) [Mass/Vol] 15.0 g/dL 13.0-16.5 [facility] Immature granulocytes/100 WB C Auto (Bld)Ordered By: Sai Herrera on 05-22-2025 Immature granulocytes/100 WBC (Bld) 0.300 % 0.0-0.9 [facility] Comment on above: IG% - Immature Granu locytes (promyelocytes, myelocytes and metamyelocytes) > 1% indicates that a LEFT SHIFT is Present. L499.0042on 05-22-2025 Trop T High Sen < 6 Normal <=22 [facility] Comment on above: Performed By: #### L 499.0042 #### [facility] [address] [place], [address] L499.0043on 05-22-2025 Trop T High Sen Normal <=22 [facility] Comment on above: Result Comment: Canc elled via OM: Order cancelled - Patient discharged Performed By: #### L 499.0043 #### [facility] [address] [place], [address] L501.4021on 05-22-2025 Trop T High Sen < 6 Normal <=22 [facility] Comment on above: Performed By: #### L 501.4021 #### [facility] [address] [place], [address] MCV (mean corpuscular volume ) determinationOrdered By: Sai Herrera on 05-22-2025 MCV (RBC) [Entitic vol] 87.7 fL 80-94 [facility] Mean corpuscular hemoglobin (MCH) determinationOrdered By: Sai Herrera on 05-22-2025 MCH (RBC) [Entitic mass] 29.8 pg 27.0-32.0 [facility] Mean corpuscular hemoglobin concentration (MCHC) determinationOrdered By: Sai Herrera on 05-22-2025 MCHC (RBC) [Mass/Vol] 33.9 g/dL 32-36 [facility] Mean platelet volume determi nationOrdered By: Sai Herrera on 05-22-2025 Platelet mean volume (Bld) [Entitic vol] 9.5 fL 6.2-12.0 [facility] Monocyte percentageOrdered B y: Sai Herrera on 05-22-2025 Monocytes/100 WBC (Bld) 7.0 % 0-10 [facility] Neutrophil percentageOrdered By: Sai Herrera on 05-22-2025 Neutrophils/100 WBC (Bld) 54.9 % 47-70 [facility] Nucleated red blood cell per centageOrdered By: Sai Herrera on 05-22-2025 Nucleated RBC/100 WBC (Bld) [Ratio] 0 % 0-5 [facility] Platelet countOrdered By: Deepthi Herrera on 05-22-2025 Platelets (Bld) [#/Vol] 294 10*3/uL 150-450 [facility] Potassium measurement (mass/ volume)Ordered By: Sai Herrera on 05-22-2025 Potassium (Unsp spec) [Mass/Vol] 4.0 mmol/L 3.3-5.1 [facility] RBC Auto (Bld) [#/Vol]Ordere d By: Sai Herrera on 05-22-2025 RBC (Bld) [#/Vol] 5.04 10*6/uL 4.6-6.2 [facility] Serum creatinine measurement (mass/volume)Ordered By: Sai Herrera on 05-22-2025 Creatinine [Mass/Vol] 0.80 mg/dL 0.70-1.20 [facility] Serum glucose measurement (m ass/volume)Ordered By: Sai Herrera on 05-22-2025 Glucose [Mass/Vol] 87 mg/dL 70-99 [facility] Serum or plasma calcium milagros urement (mass/volume)Ordered By: Sai Herrera on 05-22-2025 Calcium [Mass/Vol] 9.7 mg/dL 7.6-11.0 [facility] Serum or plasma urea nitroge n measurement (mass/volume)Ordered By: Sai Herrera on 05-22-2025 Urea nitrogen [Mass/Vol] 13 mg/dL 4-19 [facility] Sodium levelOrdered By: Surnider Herrera on 05-22-2025 Sodium [Moles/Vol] 138 mmol/L 133-145 [facility] Troponin T.cardiac [Mass/vol ume] in Serum or Plasma by High sensitivity methodOrdered By: Sai Herrera on 05-22-2025 Troponin T.cardiac High sensitivity method [Mass/Vol] < 6 ng/L <22 [facility] Troponin T.cardiac High sensitivity method [Mass/Vol] < 6 ng/L <22 [facility] White blood cell (WBC) count Ordered By: Sai Herrera on 05-22-2025 WBC (Bld) [#/Vol] 7.2 10*3/uL 4.4-11.0 [facility] Urgent Care Visit Reporton 0 02-06-2025 Urgent Care Visit Report [facility] [address], [address] [place] [id number] OFFICE VISIT Date of Service: 02/06/25 MR#: [id number] Acct: [id number] Name: ROYCE YUSUF Rep #: [id number] : 2000 Provider: JESSICA Jo Age/Sex: 25/M Location: [facility] [place] Status: Signed Intake Vital Signs 01/15/25 15:14 02/06/25 17:44 Height 5 ft 7 in BP 106/76 114/72 Blood Pressure Location Lt brachial Lt brachial Position Sitting Sitting Respiration 14 14 Pulse 69 71 Pulse Source Monitor NIBP Temp 98.1 F 98.5 F Temp Source Oral Oral Pulse Oximetry (%) 98 96 Oxygen Delivery Method room air room air Intake Visit Reasons: NAUSEA/BA Chief Complaint: fatigue, nausea Deputy Chief Magistrate Required: No Is patient in pain?: No Allergies azithromycin Allergy (Verified 02/06/25 17:45) Rash iodine Allergy (Verified 02/06/25 17:45) Rash Have you fallen in the past year?: No Nurse's Note: fatigue, nausea today since waking. missed work d/t extreme fatigue. denies fever, ST, cough, congestion PFSH Medical History Vaping nicotine dependence, tobacco product Anxiety and depression Surgical History History of tonsillectomy and adenoidectomy Social History (Updated 01/15/25 @ 15:14 by Jillian Grover) household members: other details: Lives with his parents. Smoking Status: Current every day smoker tobacco type: e-cigarettes Electronic Cigarette Use: with nicotine alcohol intake: current alcohol intake frequency: 3 or more drinks per day Alcohol type: beer substance use type: does not use HPI HPI Chief Complaint: fatigue, nausea Details: ROYCE YUSUF, is a 25 M who presents to the office today for initial evaluation at the [facility] for approximately 12-hour history of fatigue, nausea, diarrhea. No complaints of fever, chills, sweats, lightheadedness/dizzin ess, vomiting, or chest pressure/shortness of breath/dyspnea on exertion. Patient notes his stools have been loose without melena/hematochezia. He notes overall his symptoms have slightly improved over the last couple hours, nonetheless present and requesting a work excuse. No other complaints at this time. ROS Const Constitutional: No other (As above) Exam Const General: cooperative, healthy appearing and no acute distress Nutritional Appearance: average body habitus Orientation: alert and awake [facility] Head: normal to inspection Ears: hearing grossly normal bilaterally, external ears normal, TM's normal bilaterally and EAC's normal Nose: external nose normal, nares normal, septum normal and no nasal discharge Face and sinus: normal facial exam, sinuses nontender and face symmetric Mouth: oral mucosae normal, lip normal, tongue normal, oropharynx normal and moist mucous membranes Throat: posterior oropharynx normal, tonsils normal, uvula midline and postnasal drainage Eyes General: appearance normal, both eyes and all related structures Neck Neck: normal visual inspection, full ROM, no lymphadenopathy, no meningeal signs and supple Neck mass: No Thyroid: thyroid normal Lymphatic: no lymphadenopathy noted Chest Chest palpation inspection: normal inspection of the chest Resp Effort Inspection: normal respiratory effort and able to speak in complete sentences Auscultation: Bilateral: Clear to Auscultation Cardio Palpation: normal PMI Rate: regular rate Rhythm: regular rhythm Heart Sounds: S1 normal, S2 normal, no gallops, no murmurs and no rubs Pulses: radial pulses present GI Inspection: normal to inspection Palpation: soft and no hepatosplenomegaly and negative Felton's and negative McBurney and negative rebound Skin General: no rashes or lesions noted Neuro General: patient alert and patient awake Cognition: normal cognition Speech: speech normal Psych Appearance: grossly normal Mental Status: mental status grossly normal Mood: congruent mood Affect: normal affect Speech and Movement: speech and movement normal Attitude: cooperative Diagnoses Gastroenteritis K52.9 Assessment and Plan Assessment and Plan (1) Gastroenteritis: Status: Acute Plan: Examination findings reviewed with patient in office today, encouraging supportive measures as instructed today. Work excuse provided at patient request. Follow-up with PCP in 5 to 7 days should symptoms not resolve, ED sooner should symptoms only worsen or any other concerns develop. Patient states acknowledging understanding all the above. Coding Level of Care Code Off vis,est,level 2 Clinical Quality Measures Falls Risk Screening/Assistive Devices Have you fallen in the past year?: No 02/06/25 1749 Date (more content not included)... Normal [facility] Urgent Care Visit Reporton 0 01-15-2025 Urgent Care Visit Report [facility] [address], [address] [place] [address] OFFICE VISIT Date of Service: 01/15/25 MR#: [id number] Acct: [id number] Name: ROYCE YUSUF Rep #: [id number] : 2000 Provider: JESSICA Jo Age/Sex: 24/M Location: [facility] [place] Status: Signed Intake Vital Signs 02/01/24 15:36 01/15/25 15:14 Height 5 ft 7 in 5 ft 7 in BP 106/76 Blood Pressure Location Lt brachial Position Sitting Respiration 14 Pulse 69 Pulse Source Monitor Temp 98.1 F Temp Source Oral Pulse Oximetry (%) 98 Oxygen Delivery Method room air Intake Visit Reasons: STOMACH CRAMPING / NAUSEA Chief Complaint: fatigue, diarrhea, stomach cramping Deputy Chief Magistrate Required: No Accompanied by: Significant Other Is patient in pain?: No Allergies azithromycin Allergy (Verified 01/15/25 15:12) Rash iodine Allergy (Verified 01/15/25 15:12) Rash Medications ???Medication ???Instructions ???Recorded ???Confirmed ???Type ascorbic acid (vitamin C) 500 mg 500 mg PO QDAY 01/15/25 01/15/25 H istory tablet calcium carbonate (Tums) 200 mg PO TID PRN 01/15/25 5 History duloxetine 30 mg capsule,delayed 30 mg PO QDAY 01/15/25 01/15/25 Hi story release PFSH Medical History Vaping nicotine dependence, tobacco product Anxiety and depression Surgical History History of tonsillectomy and adenoidectomy Social History (Updated 01/15/25 @ 15:14 by Jillian Grover) household members: other details: Lives with his parents. Smoking Status: Current every day smoker tobacco type: e-cigarettes Electronic Cigarette Use: with nicotine alcohol intake: current alcohol intake frequency: 3 or more drinks per day Alcohol type: beer substance use type: does not use HPI HPI Chief Complaint: fatigue, diarrhea, stomach cramping Details: ROYCE YUSUF, is a 24 M who presents to the office today for [facility] for approximately 36-hour history of fatigue, diarrhea, stomach cramping. No complaints of fever, chills, sweats, lightheadedness/dizzin ess, nausea/vomiting, or chest pressure/shortness of breath/dyspnea on exertion. Patient notes his stools have been loose and greenish colored with occasional blood streaking; he describes having a longstanding history of external hemorrhoids and so the blood history of stool is actually relatively common for him. He notes overall his symptoms have slightly improved over the last half day, nonetheless present and requesting a work excuse. No other complaints at this time. ROS Const Constitutional: No other (As above) Exam Const General: cooperative, healthy appearing and no acute distress Nutritional Appearance: average body habitus Orientation: alert and awake [facility] Head: normal to inspection Ears: hearing grossly normal bilaterally, external ears normal, TM's normal bilaterally and EAC's normal Nose: external nose normal, nares normal, septum normal and no nasal discharge Face and sinus: normal facial exam, sinuses nontender and face symmetric Mouth: oral mucosae normal, lip normal, tongue normal, oropharynx normal and moist mucous membranes Throat: posterior oropharynx normal, tonsils normal, uvula midline and postnasal drainage Eyes General: appearance normal, both eyes and all related structures Neck Neck: normal visual inspection, full ROM, no lymphadenopathy, no meningeal signs and supple Neck mass: No Thyroid: thyroid normal Lymphatic: no lymphadenopathy noted Chest Chest palpation inspection: normal inspection of the chest Resp Effort Inspection: normal respiratory effort and able to speak in complete sentences Auscultation: Bilateral: Clear to Auscultation Cardio Palpation: normal PMI Rate: regular rate Rhythm: regular rhythm Heart Sounds: S1 normal, S2 normal, no gallops, no murmurs and no rubs Pulses: radial pulses present GI Inspection: normal to inspection Palpation: soft and no hepatosplenomegaly Skin General: no rashes or lesions noted Neuro General: patient alert and patient awake Cognition: normal cognition Speech: speech normal Psych Appearance: grossly normal Mental Status: mental status grossly normal Mood: congruent mood Affect: normal affect Speech and Movement: speech and movement normal Attitude: cooperative Coding Level of Care Code Off vis,est,level 2 Diagnoses Gastroenteritis K52.9 Assessment and Plan Assessment and Plan (1) Gastroenteritis: Status: Acute Plan: Examination findings reviewed with patient in office today, encouraging supportive measures as instructed today. Work excuse provided at patient request. Follow-up with PCP in 5 to 7 days should sympto (more content not included)... Normal [facility] Abdomen/Pelvis WITH Contrast on 08-10-2024 Abdomen/Pelvis WITH Contrast [facility] Imaging Services [address] [place] [address] Abdomen/Pelvis WITH Contrast MR#: [id number] Acct: [id number] Name: ROYCE YUSUF Rep #: [id number] : 2000 M 24 From: Rickey hebert MD PCP: Dr. Lindy Villegas DO Status: REG CL Study: Abdomen/Pelvis WITH Contrast Date of Exam: Exam# [id number] Ordering Dr: Darlene [place] [id number] STUDY: CT ABDOMEN AND PELVIS WITH CONTRAST REASON FOR EXAM: Male, 24 years old. Abdominal pain, hematochezia -- Iodine allergy, premed rx sent RADIATION DOSAGE (If Supplied By Facility): CTDIvol = ( 14.37 ) mGy, DLP = ( 620.43 ) mGycm TECHNIQUE: Transaxial images were obtained from the dome of the diaphragm to the symphysis pubis without oral contrast. IV 100mL Isovue-370 was administered. Sagittal and coronal images were reconstructed. Individualized dose optimization techniques were used for this CT. COMPARISON: None. FINDINGS: The visualized lung bases are unremarkable. The visualized portions of the heart are within normal limits. Normal liver. Normal gallbladder and extrahepatic biliary system. Normal spleen. Normal pancreas. Normal bilateral adrenal glands. Normal right kidney. Normal left kidney. Normal visualized stomach. Normal small intestine. Normal colon. The appendix is visualized and appears normal. Normal abdominal aorta. Normal inferior vena cava. Normal retroperitoneum. Normal urinary bladder. Normal abdominal wall. Normal osseous structures. CT/Abdomen/Pelvis WITH Contrast IMPRESSION: Normal enhanced CT of the abdomen and pelvis. Electronically Signed: Rickey Valdez MD at 10:47 EDT , CC: [facility] [place]; Dr. Lindy Villegas DO Physicist Cryogenics: Signed Normal [facility] Abdomen Limitedon 07-05-2024 Abdomen Limited [facility] Imaging Services [address] [place] [address], [place] [address] Abdomen Limited MR#: [id number] Acct: [id number] Name: ROYCE YUSUF Rep #: [id number] : 2000 M 24 From: Deon Lopez PCP: Dr. Lindy Villegas DO Status: REG CLI Study: Abdomen Limited Date of Exam: 07/05/24 Exam# [id number] Ordering Dr: Darlene [place] [id number] INDICATION: Epigastric Pain EXAMINATION: Ultrasound US Abdomen Limited (quadrant) TECHNIQUE: Peterson scale and color doppler imaging was performed of the right upper quadrant. COMPARISON: No relevant prior comparison study available FINDINGS: LIVER: The liver is mildly enlarged measuring about 18 cm in length. Liver echogenicity is unremarkable. The portal vein is patent with normal hepatopedal flow. No focal hepatic lesion. There is no free fluid. GALLBLADDER AND BILIARY TREE: No shadowing gallstone, pericholecystic fluid or gallbladder wall thickening is demonstrated. The gallbladder wall measures 1.6 mm. The proximal common bile duct measures 3.1 mm, which is within normal limits for the patient''s age. Sonographic Felton''s sign: Negative. PANCREAS: No focal abnormality is demonstrated in the pancreas. No pancreatic ductal dilatation. RIGHT KIDNEY: The right kidney measures 11.6 cm in length. The renal cortex measures 1 cm. No evidence of hydronephrosis. US/Abdomen Limited IMPRESSION: No acute sonographic abnormality is demonstrated in the right upper quadrant. Mild hepatomegaly. Electronically Signed: Deon Jose MD at 11:38 EDT , CC: [facility] [place]; Dr. Lindy Villegas, Physicist Cryogenics: Signed Normal [facility] Amylaseon 07-05-2024 JATIN 32 U/L Normal 25-115 [facility] Comment on above: Performed By: #### L 501.2450, L501.6710, L501.2400, L503.6005, L101.9900, L500.2500, L100.0100, L500.3400 ####[facility] [address] [place], [address] Basic Metabolic Profile (BMP )on 07-05-2024 BUN/CRE 11.3 RATIO Normal 10-20 [facility] Comment on above: Performed By: #### L 501.2450, L501.6710, L501.2400, L503.6005, L101.9900, L500.2500, L100.0100, L500.3400 ####[facility] [address] [place], [place], [phone] CA,Total 9.9 mg/dL Normal 8.5-10.1 [facility] Comment on above: Performed By: #### L 501.2450, L501.6710, L501.2400, L503.6005, L101.9900, L500.2500, L100.0100, L500.3400 ####[facility] [address] [place], [address] Chloride [Moles/Vol] 105 mmol/L Normal 98-107 [facility] Comment on above: Performed By: #### L 501.2450, L501.6710, L501.2400, L503.6005, L101.9900, L500.2500, L100.0100, L500.3400 ####[facility] [address] [place], [address] CO2 [Moles/Vol] 30.0 mmol/L Normal 21.0-32.0 [facility] Comment on above: Performed By: #### L 501.2450, L501.6710, L501.2400, L503.6005, L101.9900, L500.2500, L100.0100, L500.3400 ####[facility] [address] [place], [address] Creatinine [Mass/Vol] 0.97 mg/dL Normal 0.70-1.30 [facility] Comment on above: Result Comment: The validity of the calculated GFR GFRAA in patients over 70 years has not been determined. Clinical correlation is essential. Performed By: #### L 501.2450, L501.6710, L501.2400, L503.6005, L101.9900, L500.2500, L100.0100, L500.3400 ####[facility] [address] [place], [address](308 EST GFR - AA 121 mL/min Normal >60 [facility] Comment on above: Result Comment: Afri can Surinamese GFR Calc Performed By: #### L 501.2450, L501.6710, L501.2400, L503.6005, L101.9900, L500.2500, L100.0100, L500.3400 ####[facility] [address] [place], [place], [phone] GAP 6 Normal 5-15 [facility] Comment on above: Performed By: #### L 501.2450, L501.6710, L501.2400, L503.6005, L101.9900, L500.2500, L100.0100, L500.3400 ####[facility] [address] [place], [address] GFR/1.73 sq M.predicted among non-blacks MDRD (S/P/Bld) [Vol rate/Area] 100 mL/min/{1.73_m2} Normal >60 [facility] Comment on above: Result Comment: Non- GFR Calc Performed By: #### L 501.2450, L501.6710, L501.2400, L503.6005, L101.9900, L500.2500, L100.0100, L500.3400 ####[facility] [address] [place], [address] Glucose [Mass/Vol] 96 mg/dL Normal 74-106 [facility] Comment on above: Performed By: #### L 501.2450, L501.6710, L501.2400, L503.6005, L101.9900, L500.2500, L100.0100, L500.3400 ####[facility] [address] [place], [address] Potassium [Moles/Vol] 4.7 mmol/L Normal 3.5-5.1 [facility] Comment on above: Performed By: #### L 501.2450, L501.6710, L501.2400, L503.6005, L101.9900, L500.2500, L100.0100, L500.3400 ####[facility] [address] [place], [address] Sodium [Moles/Vol] 141 mmol/L Normal 136-145 [facility] Comment on above: Performed By: #### L 501.2450, L501.6710, L501.2400, L503.6005, L101.9900, L500.2500, L100.0100, L500.3400 ####[facility] [address] [place], [address] Urea nitrogen [Mass/Vol] 11 mg/dL Normal 7-18 [facility] Comment on above: Performed By: #### L 501.2450, L501.6710, L501.2400, L503.6005, L101.9900, L500.2500, L100.0100, L500.3400 ####[facility] [address] [place], [address] CBC W/Diff, Automatedon 06-21 Absolute Lymph 1.66 X10 3/uL Normal 0.83-4.51 [facility] Comment on above: Performed By: #### L 501.2450, L501.6710, L501.2400, L503.6005, L101.9900, L500.2500, L100.0100, L500.3400 ####[facility] [address] [place], [address] Absolute Neut 2.4 X10 3/uL Normal 2.0-7.7 [facility] Comment on above: Performed By: #### L 501.2450, L501.6710, L501.2400, L503.6005, L101.9900, L500.2500, L100.0100, L500.3400 ####[facility] [address] [place], [address] Basophils/100 WBC (Bld) 1.1 % High 0-1 [facility] Comment on above: Performed By: #### L 501.2450, L501.6710, L501.2400, L503.6005, L101.9900, L500.2500, L100.0100, L500.3400 ####[facility] [address] [place], [address] Eosinophils/100 WBC (Bld) 5.6 % High 0-5 [facility] Comment on above: Performed By: #### L 501.2450, L501.6710, L501.2400, L503.6005, L101.9900, L500.2500, L100.0100, L500.3400 ####[facility] [address] [place], [address] Erythrocyte distribution width (RBC) [Ratio] 13.2 % Normal 11.6-14.6 [facility] Comment on above: Performed By: #### L 501.2450, L501.6710, L501.2400, L503.6005, L101.9900, L500.2500, L100.0100, L500.3400 ####[facility] [address] [place], [address] Hematocrit (Bld) [Volume fraction] 45.8 % Normal 40-54 [facility] Comment on above: Performed By: #### L 501.2450, L501.6710, L501.2400, L503.6005, L101.9900, L500.2500, L100.0100, L500.3400 ####[facility] [address] [place], [address] Hemoglobin (Bld) [Mass/Vol] 15.4 g/dL Normal 13.0-16.5 [facility] Comment on above: Performed By: #### L 501.2450, L501.6710, L501.2400, L503.6005, L101.9900, L500.2500, L100.0100, L500.3400 ####[facility] [address] [place], [address] IG% 0.200 Normal 0.0-0.9 [facility] Comment on above: Result Comment: IG% - Immature Granulocytes (promyelocytes, myelocytes and metamyelocytes) > 1% indicates that a LEFT SHIFT is Present. Performed By: #### L 501.2450, L501.6710, L501.2400, L503.6005, L101.9900, L500.2500, L100.0100, L500.3400 ####[facility] [address] [place], [address] Lymphocytes/100 WBC (Bld) 35.5 % Normal 19-41 [facility] Comment on above: Performed By: #### L 501.2450, L501.6710, L501.2400, L503.6005, L101.9900, L500.2500, L100.0100, L500.3400 ####[facility] [address] [place], [address] MCH (RBC) [Entitic mass] 30.1 pg Normal 27.0-32.0 [facility] Comment on above: Performed By: #### L 501.2450, L501.6710, L501.2400, L503.6005, L101.9900, L500.2500, L100.0100, L500.3400 ####[facility] [address] [place], [address] MCHC (RBC) [Mass/Vol] 33.6 g/dL Normal 32-36 [facility] Comment on above: Performed By: #### L 501.2450, L501.6710, L501.2400, L503.6005, L101.9900, L500.2500, L100.0100, L500.3400 ####[facility] [address] [place], [address] MCV (RBC) [Entitic vol] 89.6 fL Normal 80-94 [facility] Comment on above: Performed By: #### L 501.2450, L501.6710, L501.2400, L503.6005, L101.9900, L500.2500, L100.0100, L500.3400 ####[facility] [address] [place], [address] Monocytes/100 WBC (Bld) 6.4 % Normal 0-10 [facility] Comment on above: Performed By: #### L 501.2450, L501.6710, L501.2400, L503.6005, L101.9900, L500.2500, L100.0100, L500.3400 ####[facility] [address] [place], [address] Neutrophils/100 WBC (Bld) 51.2 % Normal 47-70 [facility] Comment on above: Performed By: #### L 501.2450, L501.6710, L501.2400, L503.6005, L101.9900, L500.2500, L100.0100, L500.3400 ####[facility] [address] [place], [address] Nucleated RBC (Bld) [#/Vol] 0 10*3/uL Normal 0-5 [facility] Comment on above: Performed By: #### L 501.2450, L501.6710, L501.2400, L503.6005, L101.9900, L500.2500, L100.0100, L500.3400 ####[facility] [address] [place], [address] Platelet mean volume (Bld) [Entitic vol] 9.5 fL Normal 6.2-12.0 [facility] Comment on above: Performed By: #### L 501.2450, L501.6710, L501.2400, L503.6005, L101.9900, L500.2500, L100.0100, L500.3400 ####[facility] [address] [place], [address] Platelets (Bld) [#/Vol] 247 10*3/uL Normal 150-450 [facility] Comment on above: Performed By: #### L 501.2450, L501.6710, L501.2400, L503.6005, L101.9900, L500.2500, L100.0100, L500.3400 ####[facility] [address] [place], [address] RBC (Bld) [#/Vol] 5.11 10*6/uL Normal 4.6-6.2 [facility] Comment on above: Performed By: #### L 501.2450, L501.6710, L501.2400, L503.6005, L101.9900, L500.2500, L100.0100, L500.3400 ####[facility] [address] [place], [address] RDW SD 43.8 fl Normal 35.1-43.9 [facility] Comment on above: Performed By: #### L 501.2450, L501.6710, L501.2400, L503.6005, L101.9900, L500.2500, L100.0100, L500.3400 ####[facility] [address] [place], [address] WBC (Bld) [#/Vol] 4.7 10*3/uL Normal 4.4-11.0 [facility] Comment on above: Performed By: #### L 501.2450, L501.6710, L501.2400, L503.6005, L101.9900, L500.2500, L100.0100, L500.3400 ####[facility] [address] [place], [address] CRPon 07-05-2024 C-REACTIVE PROT < 2.90 Normal 0.0-3.0 [facility] Comment on above: Result Comment: C-Re active Protein (CRP) provides useful information for the diagnosis, therapy and monitoring of inflammatory processes and associated diseases. For the evaluation of Relative Risk for Cardiovascular Disease, a High Sensitivity CRP (HSCRP) should be ordered. Performed By: #### L 501.2450, L501.6710, L501.2400, L503.6005, L101.9900, L500.2500, L100.0100, L500.3400 ####[facility] [address] [place], [address] Erythrocyte Sed Rateon 07-05 SED RATE < 1 Normal 0-20 [facility] Comment on above: Performed By: #### L 501.2450, L501.6710, L501.2400, L503.6005, L101.9900, L500.2500, L100.0100, L500.3400 ####[facility] [address] [place], [place], [phone] Lactic Acidon 07-05-2024 Lactate [Moles/Vol] 1.6 mmol/L Normal 0.4-1.9 [facility] Comment on above: Order Comment: N Performed By: #### L 501.2450, L501.6710, L501.2400, L503.6005, L101.9900, L500.2500, L100.0100, L500.3400 ####[facility] [address] [place], [place], [address] Lipaseon 07-05-2024 Lipase [Catalytic activity/Vol] 23 U/L Normal 13-75 [facility] Comment on above: Result Comment: Brennan noonan note: LIPASE revised reference range effective 23. New Lipase methodology. Expected to produce lower values than the previous assay method. NEW Reference Range: 13 - 75 U/L Performed By: #### L 501.2450, L501.6710, L501.2400, L503.6005, L101.9900, L500.2500, L100.0100, L500.3400 ####[facility] [address] [place], [place], [phone] Liver Profileon 07-05-2024 Albumin [Mass/Vol] 4.1 g/dL Normal 3.2-5.0 [facility] Comment on above: Performed By: #### L 501.2450, L501.6710, L501.2400, L503.6005, L101.9900, L500.2500, L100.0100, L500.3400 ####[facility] [address] [place], [place], [phone] ALK P 60 U/L Normal 45-117 [facility] Comment on above: Performed By: #### L 501.2450, L501.6710, L501.2400, L503.6005, L101.9900, L500.2500, L100.0100, L500.3400 ####[facility] [address] [place], [address] ALT [Catalytic activity/Vol] 18 U/L Normal 16-61 [facility] Comment on above: Performed By: #### L 501.2450, L501.6710, L501.2400, L503.6005, L101.9900, L500.2500, L100.0100, L500.3400 ####[facility] [address] [place], [address] AST [Catalytic activity/Vol] 11 U/L Low 15-37 [facility] Comment on above: Performed By: #### L 501.2450, L501.6710, L501.2400, L503.6005, L101.9900, L500.2500, L100.0100, L500.3400 ####[facility] [address] [place], [address] Bilirubin [Mass/Vol] 0.50 mg/dL Normal 0.20-1.00 [facility] Comment on above: Result Comment: For patients on eltrombopag therapy, use of Dimension [place] TBIL is not recommended. Performed By: #### L 501.2450, L501.6710, L501.2400, L503.6005, L101.9900, L500.2500, L100.0100, L500.3400 ####[facility] [address] [place], [address] Bilirubin.direct [Mass/Vol] 0.13 mg/dL Normal 0.00-0.30 [facility] Comment on above: Performed By: #### L 501.2450, L501.6710, L501.2400, L503.6005, L101.9900, L500.2500, L100.0100, L500.3400 ####[facility] [address] [place], [address] Globulin (S) [Mass/Vol] 3.6 g/dL Normal 2.2-4.2 [facility] Comment on above: Performed By: #### L 501.2450, L501.6710, L501.2400, L503.6005, L101.9900, L500.2500, L100.0100, L500.3400 ####[facility] [address] [place], [place], [id number] T PROT 7.7 g/dL Normal 6.4-8.2 [facility] Comment on above: Performed By: #### L 501.2450, L501.6710, L501.2400, L503.6005, L101.9900, L500.2500, L100.0100, L500.3400 ####[facility] [address] [place], [place], [id number] Urgent Care Visit Reporton 0 06-15-2024 Urgent Care Visit Report [facility] [address], [address] [place], [place] [address] OFFICE VISIT Date of Service: 06/15/24 MR#: [id number] Acct: [id number] Name: ROYCE YUSUF Rep #: [id number] : 2000 Provider: JESSICA Jenkins Age/Sex: 24/M Location: [facility] [place] Status: Signed Intake Vital Signs 02/01/24 15:36 06/15/24 15:44 Height 5 ft 7 in Weight: 170 lb BMI 26.6 BP 122/86 H 102/66 Blood Pressure Location Lt brachial Lt brachial Position Sitting Sitting Respiration 16 15 Pulse 79 71 Pulse Source Monitor NIBP Temp 98.0 F 98.2 F Temp Source Temporal Temporal Pulse Oximetry (%) 97 98 Oxygen Delivery Method room air room air Intake Visit Reasons: Diarrhea/NAUSEA Chief Complaint: nausea, diarrhea, abd cramping Deputy 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 denies vomiting/exposure to illness [facility] Medical History Anxiety and depression Vaping nicotine dependence, tobacco product Surgical History History of tonsillectomy and adenoidectomy Social History household members: other details: Lives with his parents. Smoking Status: Current every day smoker tobacco type: e-cigarettes Electronic Cigarette Use: with nicotine alcohol intake: current alcohol intake frequency: holidays/special occasions only substance use type: does not use HPI HPI Chief Complaint: nausea, diarrhea, abd cramping Details: ROYCE YUSUF, is a 24 M who presents to the office today for complaint of nausea, diarrhea and abdominal cramping for the past 5 days. Patient states he has not had any vomiting and denies any hemoptysis, hematochezia or hematemesis. No fever, chills or sweats. No loss of taste or smell. No other associated symptoms or alleviating/aggravatin g factors. ROS Const Constitutional: No other (6 system ROS completed with pertinent findings in HPI otherwise normal.) Exam Const General: cooperative and healthy appearing [facility] Head: normocephalic and atraumatic Ears: hearing grossly normal bilaterally Face and sinus: face symmetric Eyes General: appearance normal, both eyes and all related structures Pupils: PERRL Resp Effort Inspection: normal respiratory effort Auscultation: Bilateral: Clear to Auscultation Cardio Rate: regular rate Rhythm: regular rhythm GI Inspection: normal to inspection Auscultation: hyperactive bowel sounds Percussion: normal to percussion Palpation: soft, no hepatosplenomegaly, no guarding and nontender General: bimanual renal exam normal bilaterally and No CVA tenderness Skin General: no rashes or lesions noted Neuro General: patient alert Psych Appearance: grossly normal Mental Status: mental status grossly normal Coding Level of Care Code Off vis,est,level 3 Diagnoses Gastroenteritis K52.9 Assessment and Plan Assessment and Plan (1) Gastroenteritis: Status: Acute Plan: Zofran as prescribed today. Encouraged to get plenty of rest, drink lots of clear liquids only for the next 24 hours then slowly advance diet as tolerated, and use Tylenol or Ibuprofen (unless contraindicated) for fever and comfort. Patient also educated on other symptomatic management techniques. To be seen in 7-10 days if no improvement; sooner if worsening of symptoms. Patient advised of potential red flags and when appropriate to report to the ED. Patient verbalized understanding and agreement with all the above. Medications: New ondansetron HCl 8 mg PO Q8H PRN 14 tabs 0RF nausea and vomiting Clinical Quality Measures Falls Risk Screening/Assistive Devices Have you fallen in the past year?: No 06/15/24 1556 Date Royce Tirado Signature: Date (if applicable) CC: Normal [facility] AFB stainOrdered By: Dr. Mansoor shaver on 01-19-2023 Microscopic observation Acid fast stain Nom (Unsp spec) SEE PATHOLOGY REPORT [facility] Comment on above: Specimen submitted t o Anatomical Pathology Department for testing. Absolute lymphocyte countOrd ered By: Dr. Ty on 01-19-2023 Lymphocytes Auto (Unsp spec) [#/Vol] 2.70 10*3/uL 0.83-4.51 [facility] Basophil percentageOrdered B y: Dr. Ty on 01-19-2023 Basophils/100 WBC (Bld) 0.9 % 0-1 [facility] Bilirubin [Mass/Vol] 0.40 mg/dL 0.20-1.00 [facility] Comment on above: For patients on eltr ombopag therapy, use of Dimension [place] TBIL is not recommended. Chloride [Moles/Vol] 108 mmol/L 98-107 [facility] Eosinophils/100 WBC (Bld) 15.9 % 0-5 [facility] Glucose [Mass/Vol] 97 mg/dL 74-106 [facility] Neutrophils (Bld) [#/Vol] 3.9 10*3/uL 2.0-7.7 [facility] Neutrophils/100 WBC (Bld) 45.5 % 47-70 [facility] Potassium [Moles/Vol] 3.4 mmol/L 3.5-5.1 [facility] Protein [Mass/Vol] 6.7 g/dL 6.4-8.2 [facility] Sodium [Moles/Vol] 142 mmol/L 136-145 [facility] WBC (Bld) [#/Vol] 8.7 10*3/uL 4.4-11.0 [facility] Blood erythrocytes count (nu mber/volume)Ordered By: Dr. Ty on 01-19-2023 RBC (Bld) [#/Vol] 4.49 10*6/uL 4.6-6.2 [facility] Blood hemoglobin measurement (mass/volume)Ordered By: Dr. Ty on 01-19-2023 Hemoglobin (Bld) [Mass/Vol] 13.3 g/dL 13.0-16.5 [facility] Blood lymphocytes/100 leukoc ytesOrdered By: Dr. Ty on 01-19-2023 Lymphocytes/100 WBC (Bld) 31.1 % 19-41 [facility] Blood monocytes/100 leukocyt esOrdered By: Dr. Ty on 01-19-2023 Monocytes/100 WBC (Bld) 6.3 % 0-10 [facility] Blood platelet mean volumeOr dered By: Dr. Ty on 01-19-2023 Platelet mean volume (Bld) [Entitic vol] 9.4 fL 6.2-12.0 [facility] Cytology report of Body flui d Cyto stainOrdered By: Dr. Mejias on 01-19-2023 Cytology report Cyto stain Doc (Body fld) SEE PATHOLOGY REPORT [facility] Comment on above: Specimen submitted t o Anatomical Pathology Department for testing. Determination of erythrocyte mean corpuscular volume (MCV)Ordered By: Dr. Ty on 01-19-2023 MCV (RBC) [Entitic vol] 90.9 fL 80-94 [facility] Gram stain for investigation of transfusion reactionOrdered By: Dr. Palma on 01-19-2023 Microscopic observation Gram stain Nom (Unsp spec) [facility] Hematocrit Auto (Bld) [Volum e fraction]Ordered By: Dr. Ty on 01-19-2023 Hematocrit (Bld) [Volume fraction] 40.8 % 40-54 [facility] - Chemistry and C hemistry - challengeOrdered By: Dr. Ty on 01-19-2023 ALP [Catalytic activity/Vol] 69 U/L 45-117 [facility] ALT [Catalytic activity/Vol] 18 U/L 16-61 [facility] CO2 [Moles/Vol] 27.0 mmol/L 21.0-32.0 [facility] Globulin (S) [Mass/Vol] 3.2 g/dL 2.2-4.2 [facility] Urea nitrogen/Creatinine [Mass ratio] 11.8 mg/mg 10-20 [facility] - Hematology and Cell countsOrdered By: Dr. Ty on 01-19-2023 Erythrocyte distribution width (RBC) [Entitic vol] 43.5 fL 35.1-43.9 [facility] Erythrocyte distribution width (RBC) [Ratio] 13.1 % 11.6-14.6 [facility] Immature granulocytes/100 WBC (Bld) 0.300 % 0.0-0.9 [facility] Comment on above: IG% - Immature Granu locytes (promyelocytes, myelocytes and metamyelocytes) > 1% indicates that a LEFT SHIFT is Present. MCH (RBC) [Entitic mass] 29.6 pg 27.0-32.0 [facility] Nucleated RBC/100 WBC (Bld) [Ratio] 0 % 0-5 [facility] MCHC Auto (RBC) [Mass/Vol]Or dered By: Dr. Ty on 01-19-2023 MCHC (RBC) [Mass/Vol] 32.6 g/dL 32-36 [facility] No Panel InformationOrdered By: Dr. Ty on 01-19-2023 Estimated Creatinine Clearance Calc 157.96 ml/min [facility] Estimated GFR (MDRD) Amer 185 mL/min >60 [facility] Comment on above: GFR Calc Estimated GFR (MDRD) Non-Af Amer 153 mL/min >60 [facility] Comment on above: Non- GFR Calc Platelets bldOrdered By: Dr. Ty on 01-19-2023 Platelets (Bld) [#/Vol] 277 10*3/uL 150-450 [facility] Serum or plasma albumin milagros urement (mass/volume)Ordered By: Dr. Ty on 01-19-2023 Albumin [Mass/Vol] 3.5 g/dL 3.2-5.0 [facility] Serum or plasma albumin/glob ulin mass ratioOrdered By: Dr. Ty on 01-19-2023 Albumin/Globulin [Mass ratio] 1.1 {ratio} 0.9-2.4 [facility] Serum or plasma calcium milagros urement (mass/volume)Ordered By: Dr. Ty on 01-19-2023 Calcium [Mass/Vol] 8.8 mg/dL 8.5-10.1 [facility] Serum or plasma creatinine m easurement (mass/volume)Ordered By: Dr. Ty on 01-19-2023 Creatinine [Mass/Vol] 0.68 mg/dL 0.70-1.30 [facility] Comment on above: The validity of the calculated GFR & GFRAA in patients over 70 years has not been determined. Clinical correlation is essential. Serum or plasma urea nitroge n measurement (mass/volume)Ordered By: Dr. Ty on 01-19-2023 Urea nitrogen [Mass/Vol] 8 mg/dL 7-18 [facility] Thin prep Papanicolaou smear with manual screeningOrdered By: Dr. Ty on 01-19-2023 Thin prep Papanicolaou smear with manual screening 14 U/L 15-37 [facility] Thin prep Papanicolaou smear with manual screening 7 5-15 [facility] Vancomycin troughOrdered By: Dr. Ty on 01-19-2023 Vancomycin trough [Mass/Vol] 16.5 ug/mL 5.0-15.0 [facility] Comment on above: VANCOMYCIN STANDARED DRUG THERAPY TROUGH LEVEL: 5.0 - 15.0 mg/L VANCOMYCIN HIGH INTENSITY THERAPY TROUGH LEVEL: 15.0 - 20.0 mg/L High Intensity therapy recommended for serious lifethreatening infections include:- Zyoetqsyec-Jgqcbrzzoorh-Owccfiycz (Ventilator/Healtcare Associated)-Sepsis PLEASE CONTACT PHARMACY SERVICES (#[id number]) FOR INTERPRETATIONOF RESULTS. Absolute lymphocyte countOrd ered By: Dr. Muñoz on 01-16-2023 Lymphocytes Auto (Unsp spec) [#/Vol] 1.61 10*3/uL 0.83-4.51 [facility] Basophil percentageOrdered B y: Dr. Muñoz on 01-16-2023 Basophils/100 WBC (Bld) 0.6 % 0-1 [facility] Bilirubin [Mass/Vol] 0.20 mg/dL 0.20-1.00 [facility] Comment on above: For patients on eltr ombopag therapy, use of Dimension [place] TBIL is not recommended. Chloride [Moles/Vol] 106 mmol/L 98-107 [facility] Eosinophils/100 WBC (Bld) 10.8 % 0-5 [facility] Glucose [Mass/Vol] 112 mg/dL 74-106 [facility] Comment on above: Fasting Glucose resu lt from 100 to 125 mg/dL suggests IMPAIRED HOMEOSTASIS per A.D.A. criteria. Neutrophils (Bld) [#/Vol] 7.7 10*3/uL 2.0-7.7 [facility] Neutrophils/100 WBC (Bld) 71.1 % 47-70 [facility] Potassium [Moles/Vol] 4.5 mmol/L 3.5-5.1 [facility] Protein [Mass/Vol] 7.0 g/dL 6.4-8.2 [facility] Sodium [Moles/Vol] 139 mmol/L 136-145 [facility] WBC (Bld) [#/Vol] 10.8 10*3/uL 4.4-11.0 [facility] Blood erythrocytes count (nu mber/volume)Ordered By: Dr. Muñoz on 01-16-2023 RBC (Bld) [#/Vol] 4.56 10*6/uL 4.6-6.2 [facility] Blood hemoglobin measurement (mass/volume)Ordered By: Dr. Muñoz on 01-16-2023 Hemoglobin (Bld) [Mass/Vol] 13.6 g/dL 13.0-16.5 [facility] Blood lymphocytes/100 leukoc ytesOrdered By: Dr. Muñoz on 01-16-2023 Lymphocytes/100 WBC (Bld) 14.9 % 19-41 [facility] Blood monocytes/100 leukocyt esOrdered By: Dr. Muñoz on 01-16-2023 Monocytes/100 WBC (Bld) 2.4 % 0-10 [facility] Blood platelet mean volumeOr dered By: Dr. Muñoz on 01-16-2023 Platelet mean volume (Bld) [Entitic vol] 9.5 fL 6.2-12.0 [facility] COVID-19 virus antigen assay Ordered By: Dr. Palma on 01-16-2023 SARS-CoV-2 (COVID-19) Ag IA.rapid Ql (Resp) Not detected Not Detect [facility] Comment on above: Normal Reference Ran ge: Not DetectedMethod:(RT-PCR) real-time reverse transcriptase PCRLuminex Spectrum Mobile Instrument*The Food and Drug Administration (FDA) has issued an Emergency Use Authorization (EAU) for the Spectrum Mobile SARS-CoV-2 Assay for the rapid detection of the virus that causes COVID-19. This test has been validated, but the FDAs independent review of this validation is pending.*Negative results do not preclude infection and should not be used as the sole basis for treatment or patient management. Optimum specimen types and timing for peak viral levels during infections caused by SARS-CoV-2 have not been determined. Collection of multiple specimens from the same patient may be necessary to detect the virus. The possibility of a false negative result should be considered if the patient has clinical presentation or has had recent exposure. Determination of erythrocyte mean corpuscular volume (MCV)Ordered By: Dr. Muñoz on 01-16-2023 MCV (RBC) [Entitic vol] 91.9 fL 80-94 [facility] HIV 1 and HIV-2 antibody ass ay with HIV-1 p24 antigen detectionOrdered By: Dr. Palma on 01-16-2023 HIV 1+2 Ab+HIV1 p24 Ag IA Ql Non-Reactive Nonreactive [facility] Hematocrit Auto (Bld) [Volum e fraction]Ordered By: Dr. Muñoz on 01-16-2023 Hematocrit (Bld) [Volume fraction] 41.9 % 40-54 [facility] Influenza virus A and B and SARS-CoV-2 (COVID-19) Ag panel - Upper respiratory specimOrdered By: Dr. Muñoz on 01-16-2023 SARS-CoV-2 (COVID-19) RNA BELL+probe Ql (Resp) [facility] - Chemistry and C hemistry - challengeOrdered By: Dr. Muñoz on 01-16-2023 ALP [Catalytic activity/Vol] 80 U/L 45-117 [facility] ALT [Catalytic activity/Vol] 16 U/L 16-61 [facility] CO2 [Moles/Vol] 29.0 mmol/L 21.0-32.0 [facility] Globulin (S) [Mass/Vol] 3.1 g/dL 2.2-4.2 [facility] Urea nitrogen/Creatinine [Mass ratio] 21.4 mg/mg 10-20 [facility] - Drug toxicology Ordered By: Dr. Palma on 01-16-2023 Amphetamines Ql (U) Negative <1000 ng/mL [facility] Benzodiazepines Ql (U) Negative < 200 ng/mL [facility] Cannabinoids Screen Ql (U) Positive < 50 ng/mL [facility] Cocaine Ql (U) Negative < 300 ng/mL [facility] Opiates Ql (U) Negative < 300 ng/mL [facility] - Hematology and Cell countsOrdered By: Dr. Muñoz on 01-16-2023 Erythrocyte distribution width (RBC) [Entitic vol] 42.9 fL 35.1-43.9 [facility] Erythrocyte distribution width (RBC) [Ratio] 12.8 % 11.6-14.6 [facility] Immature granulocytes/100 WBC (Bld) 0.200 % 0.0-0.9 [facility] Comment on above: IG% - Immature Granu locytes (promyelocytes, myelocytes and metamyelocytes) > 1% indicates that a LEFT SHIFT is Present. MCH (RBC) [Entitic mass] 29.8 pg 27.0-32.0 [facility] Nucleated RBC/100 WBC (Bld) [Ratio] 0 % 0-5 [facility] MCHC Auto (RBC) [Mass/Vol]Or dered By: Dr. Muñoz on 01-16-2023 MCHC (RBC) [Mass/Vol] 32.5 g/dL 32-36 [facility] No Panel InformationOrdered By: Dr. Palma on 01-16-2023 Methicillin-Resist S.aureus DNA PCR Negative Negative [facility] MDMA (Ecstasy) Screen Negative < 500 ng/mL [facility] Urine Barbiturates Screen Negative < 200 ng/mL [facility] Urine Drug Screen Comment [facility] Comment on above: CONFIRMATORY TESTING FOR ALL POSITIVE URINE DRUG SCREENRESULTS WILL ONLY BE SENT OUT UPON PHYSICIAN ORDER. VISTA Urine Drug Screen methods provide only preliminaryanalytical test results. A more specific alternate chemicalmethod must be used in order to obtain a confirmedanalytical result. Gas chromatography/mass spectrometery(GC/MS) is the preferred confirmatory method. Clinicalconsideration and professional judgement should be appliedto any drug of abuse test result, particularly whenpreliminary positive results are used. URINE TCA TESTING MUST BE ORDERED SEPARATELY. USE TESTMNEMONIC: [facility] Urine Methadone Screen Negative < 300 ng/mL [facility] Hepatitis B Surface Antigen Non-Reactive Nonreactive [facility] Hepatitis C Antibody Non-Reactive Nonreactive [facility] Comment on above: Non Reactive: < 0.8 Equivocal: >/= 0.8 to < 1.0 Reactive: >/= 1.0The CDC recommends that a reactive/equivocal HCV antibody result be followed up by the HCV Nucleic Acid Amplificationtest (730192) Streptococcus pneumoniae Antigen (M [facility] No Panel InformationOrdered By: Dr. Muñoz on 01-16-2023 Estimated Creatinine Clearance Calc 127.87 ml/min [facility] Estimated GFR (MDRD) Amer 144 mL/min >60 [facility] Comment on above: GFR Calc Estimated GFR (MDRD) Non-Af Amer 119 mL/min >60 [facility] Comment on above: Non- GFR Calc Platelets bldOrdered By: Dr. Muñoz on 01-16-2023 Platelets (Bld) [#/Vol] 282 10*3/uL 150-450 [facility] Serum hepatitis B virus surf bela antibody IgG detectionOrdered By: Dr. Palma on 01-16-2023 HBV surface IgG Ql (S) Reactive [facility] Comment on above: Non Reactive: Incons istent with immunity less than <10 mIU/mL Reactive: Consistent with immunity greater than or equal to 10 mIU/mL Serum or plasma albumin milagros urement (mass/volume)Ordered By: Dr. Muñoz on 01-16-2023 Albumin [Mass/Vol] 3.9 g/dL 3.2-5.0 [facility] Serum or plasma albumin/glob ulin mass ratioOrdered By: Dr. Muñoz on 01-16-2023 Albumin/Globulin [Mass ratio] 1.3 {ratio} 0.9-2.4 [facility] Serum or plasma calcium milagros urement (mass/volume)Ordered By: Dr. Muñoz on 01-16-2023 Calcium [Mass/Vol] 9.5 mg/dL 8.5-10.1 [facility] Serum or plasma creatinine m easurement (mass/volume)Ordered By: Dr. Muñoz on 01-16-2023 Creatinine [Mass/Vol] 0.84 mg/dL 0.70-1.30 [facility] Comment on above: The validity of the calculated GFR & GFRAA in patients over 70 years has not been determined. Clinical correlation is essential. Serum or plasma urea nitroge n measurement (mass/volume)Ordered By: Dr. Muñoz on 01-16-2023 Urea nitrogen [Mass/Vol] 18 mg/dL 7-18 [facility] Serum procalcitonin measurem entOrdered By: Dr. Palma on 01-16-2023 Procalcitonin [Mass/Vol] ng/mL 0.00-0.09 [facility] Comment on above: A procalcitonin (PCT ) level above 2.0 ng/mL on the first day of ICU admission is associated with a high risk for progression to severe sepsis and/or septic shock. A PCT level below 0.5 ng/mL on the first day of ICU admission is associated with a low risk for progression to severe and/or septic shock. Note: Concentrations <0.5 ng/mL do not exclude an infection on account of localized infections (without systemic signs) which can be associated with such low concentrations, or a systemic infection in its initial stages (<6 hours). Furthermore, increased procalcitonin can occur without infection. PCT concentrations between 0.5 and 2.0 ng/mL should be interpreted taking into account the patient's history. It is recommended to retest PCT within 6-24 hours if any concentrations <2 ng/mL are obtained. Thin prep Papanicolaou smear with manual screeningOrdered By: Dr. Muñoz on 01-16-2023 Thin prep Papanicolaou smear with manual screening 13 U/L 15-37 [facility] Thin prep Papanicolaou smear with manual screening 4 5-15 [facility] Urine Legionella pneumophila antigen detectionOrdered By: Dr. Palma on 01-16-2023 L. pneumophila Ag Ql (U) [facility] Urine phencyclidine (PCP) de tectionOrdered By: Dr. Palma on 01-16-2023 Phencyclidine Ql (U) Negative < 25 ng/mL [facility] 2018 Novel Coronavirus (COVI D-19), BELL ([id number])Ordered By: Church Administrator on 05-02-20202018 Novel Coronavirus (COVID-19), BELL ([id number]) Not detected [facility]; [facility] Work Phone: Comment on above: This test was develo ped and its performance characteristics determinedby [facility]. This test has not been FDA cleared orapproved. This test has been authorized by FDA under an Emergency UseAuthorization (EUA). This test is only authorized for the duration oftime the declaration that circumstances exist justifying theauthorization of the emergency use of in vitro diagnostic tests fordetection of SARS-CoV-2 virus and/or diagnosis of COVID-19 infectionunder section 564(b)(1) of the Act, 21 U.S.C. 360bbb-3(b)(1), unlessthe authorization is terminated or revoked sooner.When diagnostic testing is negative, the possibility of a falsenegative result should be considered in the context of a patient'srecent exposures and the presence of clinical signs and symptomsconsistent with COVID-19. An individual without symptoms of COVID-19and who is not shedding SARS-CoV-2 virus would expect to have anegative (not detected) result in this assay. PATIENT NOT FASTINGP ERFORMED BY: [employer] [id number] [facility] [place] [id number] URINE EDILMA CULTURE-IDENTIFICA [place] ([id number])Ordered By: Church Administrator on 02-01-2020 Bacteria identified Cx Nom (U) Final report Normal [facility]; [facility] Work Phone: Comment on above: PERFORMED BY: [employer] [address] [place] [id number] Information: SRC:UR Bacteria identified Cx Nom (U) [id number] Normal [facility]; [facility] Work Phone: Comment on above: No growth in 36 - 48 hours. PERFORMED BY: [facility] [id number] [facility] TherapeuticsThe [facility] [id number] Information: SRC:UR Urinalysis, Office ([id number])Or dered By: Alber Heredia on 02-01-2020 Bilirubin Ql (U) Negative Normal [facility]; [facility] Work Phone: Glucose Test strip (U) [Mass/Vol] Negative Normal [facility]; [facility] Work Phone: Hemoglobin Ql (U) Negative Normal [facility]; [facility] Work Phone: Ketones Ql (U) Negative Normal [facility]prehens [facility]; [facility] Work Phone: Leukocyte esterase Test strip Ql (U) Negative Normal [facility]; [facility] Work Phone: Nitrite Ql (U) Negative Normal [facility]; [facility] Work Phone: pH (U) 6 [pH] Abnormal [facility]; [facility] Work Phone: Protein Ql (U) Negative Normal [facility]; [facility] Work Phone: Specific gravity (U) [Rel density] 1.020 1 Normal [facility]; [facility] Work Phone: Urobilinogen (24H U) [Mass/Time] Normal Normal [facility]; [facility] Work Phone: URINE EDILMA CULTURE (VIVEK COL COUNT) ([id number])on 02-13-2019 Bacteria identified Cx Nom (U) CNSNSS Abnormal [facility] Work Phone: Comment on above: Coagulase negative S taphylococcus species, not Staphylococcussaprophyticus.100 Colonies/mL .Most isolates of Staphylococcus sp. produce a beta-lactamase enzymerendering them resistant to penicillin. Please contact the laboratoryif penicillin is being considered for therapy.Based on susceptibility to oxacillin this isolate would besusceptible to:*Penicillinase-stable penicillins, such as: Cloxacillin, Dicloxacillin, Nafcillin*Beta-lactam combination agents, such as: Amoxicillin-clavulanic acid, Ampicillin-sulbactam, Piperacillin-tazobactam*Oral cephems, such as: Cefaclor, Cefdinir, Cefpodoxime, Cefprozil, Cefuroxime, Cephalexin, Loracarbef*Parenteral cephems, such as: Cefazolin, Cefepime, Cefotaxime, Cefotetan, Ceftaroline, Ceftizoxime, Ceftriaxone, Cefuroxime*Carbapenems, such as: Doripenem, Ertapenem, Imipenem, Meropenem S = Susceptible; I = Intermediate; R = Resistant P = Positive; N = Negative MICS are expressed in micrograms per mL Antibiotic RSLT#1 RSLT#2 RSLT#3 RSLT#4Ciprofloxacin SGentamicin SLevofloxacin SLinezolid SNitrofurantoin SOxacillin SQuinupristin/Dalfopristin SRifampin STetracycline STrimethoprim/Sulfa SVancomycin S PATIENT NOT FASTINGP ERFORMED BY: [employer] [id number] [facility] [id number] Information: SRC:CRISTINE Bacteria identified Cx Nom (U) Final report Abnormal [facility] Work Phone: Comment on above: PATIENT NOT FASTINGP ERFORMED BY: [employer] [id number] [facility] [id number] Information: SRC:CRISTINE Urinalysis, Office ([id number])Or dered By: Galina Rodriguez on 02-13-2019 Bilirubin Ql (U) Negative Normal [facility] Work Phone: Glucose Test strip mass conc (U) Negative Normal [facility] Work Phone: Hemoglobin Ql (U) Negative Normal [facility] Work Phone: Ketones Ql (U) Moderate Normal Comprehens [facility] Work Phone: Leukocyte esterase Test strip Ql (U) Negative Normal [facility] Work Phone: Nitrite Ql (U) Negative Normal [facility] Work Phone: pH (U) 8 [pH] Abnormal [facility] Work Phone: Protein Ql (U) Negative Normal [facility]prehens [facility] Work Phone: Specific gravity Relative Density (U) 1.030 1 Abnormal Comprehensi ve [facility] Work Phone: Urobilinogen mass/time (24H U) Normal Normal [facility] Work Phone: Urinalysis, Office ([id number])on 02-13-2019 Bilirubin Ql (U) Negative Normal [facility]; [facility] Work Phone: Glucose Test strip (U) [Mass/Vol] Negative Normal [facility]; [facility] Work Phone: Hemoglobin Ql (U) Negative Normal [facility]pre[facility]; [facility] Work Phone: Leukocyte esterase Test strip Ql (U) Negative Normal [facility]; [facility] Work Phone: Nitrite Ql (U) Negative Normal [facility]; [facility] Work Phone: Protein Ql (U) Negative Normal [facility]prehens [facility]; [facility] Work Phone: CBC, Platelets & Auto Diff ( [phone])on 08-22-2018 Basophils #/vol (Bld) 0.0 {x10E3/uL} Normal 0.0-0.2 [facility] Work Phone: Comment on above: PATIENT NOT FASTINGP ERFORMED BY: [employer] [id number] [facility] TherapeuticsThe [facility] [id number] Basophils/100 WBC (Bld) 0 % Normal [facility] Work Phone: Comment on above: PATIENT NOT FASTINGP ERFORMED BY: [employer] [id number] [facility] TherapeuticsThe [facility] [id number] Eosinophils #/vol (Bld) 0.2 {x10E3/uL} Normal 0.0-0.4 [facility] Work Phone: Comment on above: PATIENT NOT FASTINGP ERFORMED BY: AB [id number] [facility] [id number] Eosinophils/100 WBC (Bld) 3 % Normal [facility] Work Phone: Comment on above: PATIENT NOT FASTINGP ERFORMED BY: AB [id number] [facility] [id number] Erythrocyte distribution width Ratio (RBC) 14.3 % Normal 12.3-15.4 [facility] Work Phone: Comment on above: PATIENT NOT FASTINGP ERFORMED BY: AB CorralCoraquel [id number] [facility] [id number] Hematocrit Volume Fraction (Bld) 45.2 % Normal 37.5-51.0 [facility] Work Phone: Comment on above: PATIENT NOT FASTINGP ERFORMED BY: AB [id number] [facility] [id number] Hemoglobin mass conc (Bld) 15.5 g/dL Normal 13.0-17.7 [facility] Work Phone: Comment on above: PATIENT NOT FASTINGP ERFORMED BY: AB [id number] [facility] [id number] Immature granulocytes #/vol (Bld) 0.0 {x10E3/uL} Normal 0.0-0.1 [facility] Work Phone: Comment on above: PATIENT NOT FASTINGP ERFORMED BY: [facility] [id number] [address] [facility] [place] [id number] Immature granulocytes/100 WBC (Bld) 0 % Normal [facility] Work Phone: Comment on above: PATIENT NOT FASTINGP ERFORMED BY: [facility] [id number] [address] [facility] [place] [id number] Lymphocytes #/vol (Bld) 2.3 {x10E3/uL} Normal 0.7-3.1 [facility] Work Phone: Comment on above: PATIENT NOT FASTINGP ERFORMED BY: [facility] [id number] [address] [facility]Critical Access Hospitalin [place] [id number] Lymphocytes/100 WBC (Bld) 37 % Normal [facility] Work Phone: Comment on above: PATIENT NOT FASTINGP ERFORMED BY: [facility] [id number] [facility] [id number] MCH Entitic mass (RBC) 29.4 pg Normal 26.6-33.0 [facility] Work Phone: Comment on above: PATIENT NOT FASTINGP ERFORMED BY: [facility] [id number] Wallace RoadAt[facility] [id number] MCHC mass conc (RBC) 34.3 g/dL Normal 31.5-35.7 [facility] Internal Medicine Work Phone: Comment on above: PATIENT NOT FASTINGP ERFORMED BY: [facility] [id number] [address] [facility] [id number] MCV Entitic volume (RBC) 86 fL Normal 79-97 [facility] Work Phone: Comment on above: PATIENT NOT FASTINGP ERFORMED BY: AB LabCoraquel FlemingTdzgyg7291 [facility] [id number] Monocytes #/vol (Bld) 0.3 {x10E3/uL} Normal 0.1-0.9 [facility] Work Phone: Comment on above: PATIENT NOT FASTINGP ERFORMED BY: [facility] [id number] [address] [facility] [id number] Monocytes/100 WBC (Bld) 5 % Normal [facility] Work Phone: Comment on above: PATIENT NOT FASTINGP ERFORMED BY: AB [facility] Gtsyhs9684 [facility] [id number] Neutrophils #/vol (Bld) 3.5 {x10E3/uL} Normal 1.4-7.0 [facility] Work Phone: Comment on above: PATIENT NOT FASTINGP ERFORMED BY: AB [facility] Ntjjgg5519 [address] [facility] [place] [id number] Neutrophils/100 WBC (Bld) 55 % Normal [facility] Work Phone: Comment on above: PATIENT NOT FASTINGP ERFORMED BY: AB Fleminglin6370 [facility] [id number] Platelets #/vol (Bld) 288 {x10E3/uL} Normal 150-379 [facility] Internal Medicine Work Phone: Comment on above: PATIENT NOT FASTINGP ERFORMED BY: AB [place]ralDavid [place] [id number] [facility] [id number] RBC #/vol (Bld) 5.28 {x10E6/uL} Normal 4.14-5.80 [facility] Internal Medicine Work Phone: Comment on above: PATIENT NOT FASTINGP ERFORMED BY: [facility] Swimjh5586 [facility] [id number] WBC #/vol (Bld) 6.4 {x10E3/uL} Normal 3.4-10.8 [facility] Internal Medicine Work Phone: Comment on above: PATIENT NOT FASTINGP ERFORMED BY: [facility] Tesray5297 [facility] [id number] CBC, Platelets & Auto Diff ( [id number])Ordered By: Church Administrator on 08-22-2018 Basophils (Bld) [#/Vol] 0.0 10*3/uL Normal 0.0-0.2 [facility]; [facility] Work Phone: Comment on above: PATIENT NOT FASTINGP ERFORMED BY: [facility]University [facility]6370 [facility] [id number] Eosinophils (Bld) [#/Vol] 0.2 10*3/uL Normal 0.0-0.4 [facility]; [facility] Work Phone: Comment on above: PATIENT NOT FASTINGP ERFORMED BY: AB LabCoEssex County HospitalBrsdmd4795 [facility] [id number] Immature granulocytes (Bld) [#/Vol] 0.0 10*3/uL Normal 0.0-0.1 [facility]; [facility] Work Phone: Comment on above: PATIENT NOT FASTINGP ERFORMED BY: AB King6370 [place] [id number] Lymphocytes (Bld) [#/Vol] 2.3 10*3/uL Normal 0.7-3.1 [facility]; [facility] Work Phone: Comment on above: PATIENT NOT FASTINGP ERFORMED BY: CB LabCoraquel KingPabxjd7270 [address] [facility] [place] [id number] Monocytes (Bld) [#/Vol] 0.3 10*3/uL Normal 0.1-0.9 [facility]; [facility] Work Phone: Comment on above: PATIENT NOT FASTINGP ERFORMED BY: AB LabSadie King6370 [address] [facility] [place] [id number] Neutrophils (Bld) [#/Vol] 3.5 10*3/uL Normal 1.4-7.0 [facility]; [facility] Work Phone: Comment on above: PATIENT NOT FASTINGP ERFORMED BY: AB LabCoraquel KingGikite3725 Wallace RoadCritical Access Hospitalin [place] [id number] Platelets (Bld) [#/Vol] 288 10*3/uL Normal 150-379 [facility]; [facility] Work Phone: Comment on above: PATIENT NOT FASTINGP ERFORMED BY: CB [facility] Wrpjfx1262 [facility] [id number] RBC (Bld) [#/Vol] 5.28 10*6/uL Normal 4.14-5.[address] [facility]; [facility] Work Phone: Comment on above: PATIENT NOT FASTINGP ERFORMED BY: CB [facility] Muvkva3417 [address] [facility] [place] [id number] WBC (Bld) [#/Vol] 6.4 10*3/uL Normal 3.4-10.8 [facility]pre [facility]; [facility] Work Phone: Comment on above: PATIENT NOT FASTINGP ERFORMED BY: MoonfryeUniversity Of Michigan Health6370 [facility] [id number] EBV Panel ([id number])on 08-22-20 18 EBV capsid IgG IA Qn (S) <18.0 Normal 0.0-17.9 [facility] Work Phone: Comment on above: Negative <18.0 Equiv ocal 18.0 - 21.9 Positive >21.9 PATIENT NOT FASTINGP ERFORMED BY: LabUniversity [facility] Health6370 [facility] [id number] EBV capsid IgM IA Qn (S) <36.0 Normal 0.0-35.9 [facility] Work Phone: Comment on above: Negative <36.0 Equiv ocal 36.0 - 43.9 Positive >43.9 PATIENT NOT FASTINGP ERFORMED BY: Moonf[place]eDavid [place] 8828770 [facility] [id number] EBV early IgG Qn (S) <9.0 Normal 0.0-8.9 Comp [facility] Internal Medicine Work Phone: Comment on above: Negative < 9.0 Equiv ocal 9.0 - 10.9 Positive >10.9 PATIENT NOT FASTINGP ERFORMED BY: LabUniversity [facility] Health6370 [facility] [id number] EBV nuclear IgG IA Qn (S) <18.0 Normal 0.0-17.9 [facility] Work Phone: Comment on above: Negative <18.0 Equiv ocal 18.0 - 21.9 Positive >21.9 PATIENT NOT FASTINGP ERFORMED BY: [facility] Gladwin6370 [facility] [id number] Service comment Interp (Unsp spec) SPRCS Normal [facility] Work Phone: Comment on above: EBV Interpretation C robertson . Interpretation EBV-IgM EA(D)-IgG VCA-IgG EBNA-IgG . EBV Seronegative - - - - Early Phase + - - - Acute Primary + +or- + - Infection Convalescence/Past - +or- + + Infection Reactivated +or- + + + Infection + Antibody Present - Antibody Absent PATIENT NOT FASTINGP ERFORMED BY: AB Sanchez Lnlrcz2906 [facility] [id number] HEPATITIS PANEL ([id number])on HAV IgM IA Ql Negative Normal Comprehensi ve Internal Medicine Work Phone: Comment on above: PATIENT NOT FASTINGP ERFORMED BY: AB Daniel Olltef4732 [facility] [id number] HBV core IgM IA Ql Negative Normal Compre hensive Internal Medicine Work Phone: Comment on above: PATIENT NOT FASTINGP ERFORMED BY: AB Daniel Ncnlsd6218 [facility] [id number] HBV surface Ag IA Ql Negative Normal Comp rehensive Internal Medicine Work Phone: Comment on above: PATIENT NOT FASTINGP ERFORMED BY: AB Daniel Scmapm3638 [facility] [id number] HCV Ab Signal/Cutoff IA RelACnc {ratio} Normal 0.0-0.9 [facility] Work Phone: Comment on above: Negative: < 0.8 Inde terminate: 0.8 - 0.9 Positive: > 0.9 . The CDC recommends that a positive HCV antibody result be followed up with a HCV Nucleic Acid Amplification test (753814). PATIENT NOT FASTINGP ERFORMED BY: AB Daniel Yjuced1531 [facility] [id number] HEPATITIS PANEL ([id number])Order ed By: Church Administrator on 08-22-2018 HAV IgM IA Ql Negative Normal Comprehensi ve Internal Medicine; [facility] Work Phone: Comment on above: PATIENT NOT FASTINGP ERFORMED BY: [facility] Tcfzbu0557 [facility] [id number] HBV core IgM IA Ql Negative Normal Compre hensive Internal Medicine; [facility] Work Phone: Comment on above: PATIENT NOT FASTINGP ERFORMED BY: AB [facility] Nbyhct7842 [facility] [id number] HBV surface Ag IA Ql Negative Normal Comp rehensive Internal Medicine; [facility] Work Phone: Comment on above: PATIENT NOT FASTINGP ERFORMED BY: [email or web address] LabSmartvue6370 [address] [facility]At[facility] [id number] HCV Ab Signal/Cutoff IA [Rel units/Vol] {ratio} Normal 0.0-0.9 [facility]; [facility] Work Phone: Comment on above: Negative: < 0.8 Inde terminate: 0.8 - 0.9 Positive: > 0.9 . The CDC recommends that a positive HCV antibody result be followed up with a HCV Nucleic Acid Amplification test (860976). PATIENT NOT FASTINGP ERFORMED BY: Car[facility] IQThe [facility] [id number] MONOSPOT TEST ([id number])on Heterophile Ab LA Ql (S) Negative Normal [facility] Work Phone: Comment on above: The sensitivity of H eterophile antibody testing is 80-90%.Jose Elmore IgM testing offers higher sensitivity. PATIENT NOT FASTINGP ERFORMED BY: [employer]6370 [address] BULXThe [facility]er Banks Hospital [id number] MONOSPOT TEST ([id number])Ordered By: Church Administrator on 08-22-2018 Heterophile Ab LA Ql (S) Negative Normal [facility]; [facility] Work Phone: Comment on above: The sensitivity of H eterophile antibody testing is 80-90%.Jose Elmore IgM testing offers higher sensitivity. PATIENT NOT FASTINGP ERFORMED BY: [email or web address] LabPlaySay Aqlqhb3431 [facility] [id number] Metabolic Panel, Comprehensi ve ([id number])on 08-22-2018 Albumin mass conc 5.0 g/dL Normal 3.5-5.5 Compreh ensive Internal Medicine Work Phone: Comment on above: PATIENT NOT FASTINGP ERFORMED BY: [email or web address] LabPlaySay Uellsf1104 [facility] [id number] Albumin/Globulin mass ratio 1.9 {ratio} Normal 1.2-2.2 [facility] Work Phone: Comment on above: PATIENT NOT FASTINGP ERFORMED BY: CB [facility] Qitcib0384 Wallace RoadDublin [place] [id number] ALP enzyme act/vol 90 [iU]/L Normal 39-117 [facility] Work Phone: Comment on above: PATIENT NOT FASTINGP ERFORMED BY: CB [facility] Vramou0651 [address] RoadDublin [place] [id number] ALT enzyme act/vol 14 [iU]/L Normal 0-44 [facility] Work Phone: Comment on above: PATIENT NOT FASTINGP ERFORMED BY: CB [facility] Xijwbz5043 Wallace RoadDublin [place] [id number] AST enzyme act/vol 18 [iU]/L Normal 0-40 [facility] Internal Medicine Work Phone: Comment on above: PATIENT NOT FASTINGP ERFORMED BY: AB [facility] Dignto3491 Wallace RoadDublin [place] [id number] Bilirubin mass conc 0.5 mg/dL Normal 0.0-1.2 Compr ensive Internal Medicine Work Phone: Comment on above: PATIENT NOT FASTINGP ERFORMED BY: AB [facility] Wpvhjm2374 Wallace RoadDublin [place] [id number] Calcium mass conc 10.1 mg/dL Normal 8.7-10.2 Compreh [facility]ive [facility] Work Phone: Comment on above: PATIENT NOT FASTINGP ERFORMED BY: CB [facility] Vhbxzj1999 [address] RoadDublin [place] [id number] Chloride molar conc 102 mmol/L Normal 96-106 Compr ensive Internal Medicine Work Phone: Comment on above: PATIENT NOT FASTINGP ERFORMED BY: CB [facility] Cdfcsw6920 [address] RoadDublin [place] [id number] CO2 molar conc 26 mmol/L Normal 20-29 Comprehens amy Internal Medicine Work Phone: Comment on above: PATIENT NOT FASTINGP ERFORMED BY: CB [facility] Fyosqa4032 [address] RoadDublin [place] [id number] Creatinine mass conc 0.88 mg/dL Normal 0.76-1.27 Comp rehensive Internal Medicine Work Phone: Comment on above: PATIENT NOT FASTINGP ERFORMED BY: AB King6370 [address] [facility] [id number] GFR/1.73 sq M predicted among blacks CKD-EPI vol rate/area (S/P/Bld) 144 mL/min/1.73 Normal [facility] Work Phone: Comment on above: PATIENT NOT FASTINGP ERFORMED BY: AB Fleminglin6370 [address] [facility] [id number] GFR/1.73 sq M predicted among non-blacks CKD-EPI vol rate/area (S/P/Bld) 125 mL/min/1.73 Normal Comprehensiv e Internal Medicine Work Phone: Comment on above: PATIENT NOT FASTINGP ERFORMED BY: AB Daniel Lacpjo4527 [facility] [id number] Globulin mass conc (S) 2.7 g/dL Normal 1.5-4.5 [facility] Internal [facility] Work Phone: Comment on above: PATIENT NOT FASTINGP ERFORMED BY: AB Rani Fleminglin6370 [facility] [id number] Glucose mass conc 85 mg/dL Normal 65-99 Compreh ensive Internal Medicine Work Phone: Comment on above: PATIENT NOT FASTINGP ERFORMED BY: AB Rani Fleminglin6370 [facility] [id number] Potassium molar conc 4.7 mmol/L Normal 3.5-5.2 Comp rehensive Internal Medicine Work Phone: Comment on above: PATIENT NOT FASTINGP ERFORMED BY: AB LabJolene Lltsfg4632 [facility] [id number] Protein mass conc 7.7 g/dL Normal 6.0-8.5 Compreh ensive Internal Medicine Work Phone: Comment on above: PATIENT NOT FASTINGP ERFORMED BY: AB LabJolene Gsfpqa9023 [facility] [id number] Sodium molar conc 143 mmol/L Normal 134-144 Compreh ensive Internal Medicine Work Phone: Comment on above: PATIENT NOT FASTINGP ERFORMED BY: AB LabSadie King6370 [address] Roadblin [place] [id number] Urea nitrogen mass conc 9 mg/dL Normal 6-20 [facility] Work Phone: Comment on above: PATIENT NOT FASTINGP ERFORMED BY: AB [facility] Azvrfs9905 [address] Roadblin [place] [id number] Urea nitrogen/Creatinine mass ratio 10 mg/mg Normal 9-20 [facility] Work Phone: Comment on above: PATIENT NOT FASTINGP ERFORMED BY: AB LabJolenerp Vpflut6020 [address] [facility]in [place] [id number] Metabolic Panel, Comprehensi ve ([id number])Ordered By: Church Administrator on 08-22-2018 ALP [Catalytic activity/Vol] 90 U/L Normal 39-117 [facility]; [facility] Work Phone: Comment on above: PATIENT NOT FASTINGP ERFORMED BY: AB LabSadie FlemingNqoogt9362 [address] [facility]bl[facility] [place] [id number] ALT [Catalytic activity/Vol] 14 U/L Normal 0-44 [facility]; [facility] Work Phone: Comment on above: PATIENT NOT FASTINGP ERFORMED BY: AB LabSadie Cprqir0863 [address] [facility]bl[facility] [place] [id number] AST [Catalytic activity/Vol] 18 U/L Normal 0-40 [facility]; [facility] Work Phone: Comment on above: PATIENT NOT FASTINGP ERFORMED BY: AB [facility] Oaovrc9784 [address] [facility]bl[facility] [place] [id number] Rapid Flu ([id number] x 2)Ordered By: Aria Rinaldi on 08-22-2018 FLUAV Ag IA Ql (Throat) Negative Normal [facility] Work Phone: FLUAV Ag IA Ql (Throat) Negative Normal [facility]; [facility] Work Phone: Urinalysis, Office ([id number])Or dered By: Aria Rinaldi on 08-22-2018 Bilirubin Ql (U) Negative Normal Comprehe nsive Internal Medicine Work Phone: Bilirubin Ql (U) Negative Normal Comprehe nsive Internal Medicine; [facility] Work Phone: Glucose Test strip (U) [Mass/Vol] Negative Normal [facility]; [facility] Work Phone: Glucose Test strip mass conc (U) Negative Normal [facility] Work Phone: Hemoglobin Ql (U) non-hemolyzed trace Normal [facility] Work Phone: Ketones Ql (U) Negative Normal Comprehens amy [facility] Medicine Work Phone: Ketones Ql (U) Negative Normal Comprehens amy [facility]; [facility] Work Phone: Leukocyte esterase Test strip Ql (U) Negative Normal [facility] Work Phone: Leukocyte esterase Test strip Ql (U) Negative Normal [facility]; [facility] Work Phone: Nitrite Ql (U) Negative Normal Comprehens amy [facility] Work Phone: Nitrite Ql (U) Negative Normal Comprehens amy [facility]; [facility] Work Phone: pH (U) 6 [pH] Abnormal [facility] Work Phone: Protein Ql (U) Negative Normal Comprehens amy [facility] Work Phone: Protein Ql (U) Negative Normal Comprehens amy [facility]; [facility] Work Phone: Specific gravity Relative Density (U) 1.025 1 Normal Comprehensi ve Internal Medicine Work Phone: Urobilinogen mass/time (24H U) Normal Normal [facility] Work Phone: Vital Signs Date Time Vital Sign Value Performing Clinician Facility 05-22-2025 18:39-0400 Body temperature 97.9 [degF] Dr. Lindy Villegas DO Work Phone: [facility] 05-22-2025 18:39-0400 Diastolic blood pressure 69 mm[Hg] Dr. Lindy Villegas DO Work Phone: [facility] 05-22-2025 18:39-0400 Heart rate 74 /min Dr. Lindy Villegas DO Work Phone: [facility] 05-22-2025 18:39-0400 Respiratory rate 15 /min Dr. Lindy Villegas DO Work Phone: [facility] 05-22-2025 18:39-0400 SaO2% (BldA) [Mass fraction] 99 % Dr. Lindy Villegas DO Work Phone: [facility] 05-22-2025 18:39-0400 Systolic blood pressure 100 mm[Hg] Dr. Lindy Villegas DO Work Phone: [facility] 05-22-2025 14:07-0400 Body height 170.[address] Lindy Villegas DO Work Phone: [facility] 05-22-2025 14:07-0400 Body mass index (BMI) [Ratio] 28.8 kg/m2 Dr. Lindy Villegas DO Work Phone: [facility] 05-22-2025 14:07-0400 Body weight 83.[address] Lindy Villegas DO Work Phone: [facility] 02-06-2025 17:44-0400 Body temperature 98.5 [degF] Dr. Lindy Villegas DO Work Phone: [facility] 02-06-2025 17:44-0400 Diastolic blood pressure 72 mm[Hg] Dr. Lindy Villegas DO Work Phone: [facility] 02-06-2025 17:44-0400 Heart rate 71 /min Dr. Lindy Villegas DO Work Phone: [facility] 02-06-2025 17:44-0400 Respiratory rate 14 /min Dr. Lindy Villegas DO Work Phone: [facility] 02-06-2025 17:44-0400 SaO2% (BldA) [Mass fraction] 96 % Dr. Lindy Villegas DO Work Phone: [facility] 02-06-2025 17:44-0400 Systolic blood pressure 114 mm[Hg] Dr. Lindy Villegas DO Work Phone: [facility] 02-23-2023 08:21-0400 Body height 175.26 cm Alicja Matthews LPN [facility]; [facility] Work Phone: 02-23-2023 08:21-0400 Body mass index (BMI) [Ratio] 26.29 kg/m2 Alicja Matthews LPN [facility]; [facility] Work Phone: 02-23-2023 08:21-0400 Body surface area Derived from formula 1.97 m2 Alicja Byron RANDALLN [facility]; [facility] Work Phone: 02-23-2023 08:21-0400 Body temperature 97 [degF] Alicja Jenrb ROD TAPE OPERATOR [facility]; [facility] Work Phone: Comment on above: Method: Temporal 02-23-2023 08:21-0400 Body weight 80.74 kg Alicja Byron ROD TAPE OPERATOR [facility]; [facility] Work Phone: 02-23-2023 08:21-0400 Diastolic blood pressure 68 mm[Hg] Alicja Byron RANDALLN [facility]; [facility] Work Phone: Comment on above: Patient Position: Sitting; Cuff Location : Left Arm; Cuff Size: Standard 02-23-2023 08:21-0400 Heart rate 63 /min Alicja Byron RANDALLN [facility]; [facility] Work Phone: Comment on above: Pattern: Regular 02-23-2023 08:21-0400 Respiratory rate 17 /min Alicja Jenrb ROD TAPE OPERATOR [facility]; [facility] Work Phone: Comment on above: Pattern: Unlabored 02-23-2023 08:21-0400 SaO2% (BldA) [Mass fraction] 98 % Alicja Matthews LPN [facility]; [facility] Work Phone: Comment on above: Room air 02-23-2023 08:21-0400 Systolic blood pressure 112 mm[Hg] Alicja Byron MANUEL [facility]; [facility] Work Phone: Comment on above: Patient Position: Sitting; Cuff Location : Left Arm; Cuff Size: Standard 01-19-2023 15:09-0500 Body temperature 96.8 [degF] GROUP ACCOUNT DIRECTOR-C Myranda Haydena GROUP ACCOUNT DIRECTOR Work Phone: [facility] 01-19-2023 15:09-0500 Diastolic blood pressure 83 mm[Hg] GROUP ACCOUNT DIRECTOR-C Myranda Haydena GROUP ACCOUNT DIRECTOR Work Phone: [facility] 01-19-2023 15:09-0500 Heart rate 97 /min GROUP ACCOUNT DIRECTOR-C Myranda Haydena GROUP ACCOUNT DIRECTOR Work Phone: [facility] 01-19-2023 15:09-0500 Respiratory rate 14 /min GROUP ACCOUNT DIRECTOR-C Myranda Haydena GROUP ACCOUNT DIRECTOR Work Phone: [facility] 01-19-2023 15:09-0500 SaO2% (BldA) [Mass fraction] 98 % GROUP ACCOUNT DIRECTOR-C Myranda Haydena GROUP ACCOUNT DIRECTOR Work Phone: [facility] 01-19-2023 15:09-0500 Systolic blood pressure 147 mm[Hg] GROUP ACCOUNT DIRECTOR-C Myranda Haydena GROUP ACCOUNT DIRECTOR Work Phone: [facility] 01-19-2023 04:18-0500 Body mass index (BMI) [Ratio] 26.9 kg/m2 GROUP ACCOUNT DIRECTOR-C Myranda Haydena GROUP ACCOUNT DIRECTOR Work Phone: [facility] 01-19-2023 04:18-0500 Body weight 78.1 kg GROUP ACCOUNT DIRECTOR-C Myranda Haydena GROUP ACCOUNT DIRECTOR Work Phone: [facility] 01-16-2023 08:06-0500 Body height 170.18 cm GROUP ACCOUNT DIRECTOR-C Myranda Haydena GROUP ACCOUNT DIRECTOR Work Phone: [facility] 01-16-2023 07:09-0500 Body temperature 97.6 [degF] GROUP ACCOUNT DIRECTOR-C Myranda Haydena GROUP ACCOUNT DIRECTOR Work Phone: [facility] 01-16-2023 07:09-0500 Diastolic blood pressure 64 mm[Hg] GROUP ACCOUNT DIRECTOR-C Myranda Haydena GROUP ACCOUNT DIRECTOR Work Phone: [facility] 01-16-2023 07:09-0500 Heart rate 70 /min GROUP ACCOUNT DIRECTOR-C Myranda Haydena GROUP ACCOUNT DIRECTOR Work Phone: [facility] 01-16-2023 07:09-0500 Respiratory rate 16 /min GROUP ACCOUNT DIRECTOR-C Myranda Haydena GROUP ACCOUNT DIRECTOR Work Phone: [facility] 01-16-2023 07:09-0500 SaO2% (BldA) [Mass fraction] 96 % GROUP ACCOUNT DIRECTOR-C Myranda Haydena GROUP ACCOUNT DIRECTOR Work Phone: [facility] 01-16-2023 07:09-0500 Systolic blood pressure 129 mm[Hg] GROUP ACCOUNT DIRECTOR-C Myranda Haydena GROUP ACCOUNT DIRECTOR Work Phone: [facility] 01-16-2023 02:14-0500 Body height 170.18 cm GROUP ACCOUNT DIRECTOR-C Myranda Haydena GROUP ACCOUNT DIRECTOR Work Phone: [facility] 01-16-2023 02:14-0500 Body mass index (BMI) [Ratio] 26.4 kg/m2 GROUP ACCOUNT DIRECTOR-C Myranda Haydena GROUP ACCOUNT DIRECTOR Work Phone: [facility] 01-16-2023 02:14-0500 Body weight 76.7 kg GROUP ACCOUNT DIRECTOR-C Myranda Haydena GROUP ACCOUNT DIRECTOR Work Phone: [facility] 01-04-2023 13:09-0500 Body mass index (BMI) [Ratio] 24.3 kg/m2 GROUP ACCOUNT DIRECTOR-C Myranda Haydena GROUP ACCOUNT DIRECTOR Work Phone: [facility] 01-04-2023 13:09-0500 Body temperature 98.4 [degF] GROUP ACCOUNT DIRECTOR-C Myranda Haydena GROUP ACCOUNT DIRECTOR Work Phone: [facility] 01-04-2023 13:09-0500 Body weight 75.92 kg GROUP ACCOUNT DIRECTOR-C Myranda Haydena GROUP ACCOUNT DIRECTOR Work Phone: [facility] 01-04-2023 13:09-0500 Diastolic blood pressure 70 mm[Hg] GROUP ACCOUNT DIRECTOR-C Myranda Allison GROUP ACCOUNT DIRECTOR Work Phone: [facility] 01-04-2023 13:09-0500 Heart rate 80 /min GROUP ACCOUNT DIRECTOR-C Myranda Allison GROUP ACCOUNT DIRECTOR Work Phone: [facility] 01-04-2023 13:09-0500 Respiratory rate 22 /min GROUP ACCOUNT DIRECTOR-C Myranda Allison GROUP ACCOUNT DIRECTOR Work Phone: [facility] 01-04-2023 13:09-0500 SaO2% (BldA) [Mass fraction] 97 % GROUP ACCOUNT DIRECTOR-C Myranda Allison GROUP ACCOUNT DIRECTOR Work Phone: [facility] 01-04-2023 13:09-0500 Systolic blood pressure 100 mm[Hg] GROUP ACCOUNT DIRECTOR-C Myranda Allison GROUP ACCOUNT DIRECTOR Work Phone: [facility] 07-16-2022 09:08-0400 Body height 175.26 cm Anabel Bernal MA [facility]; [facility] Work Phone: 07-16-2022 09:08-0400 Body mass index (BMI) [Ratio] 26.29 kg/m2 Anabel Bernal MA [facility]; [facility] Work Phone: 07-16-2022 09:08-0400 Body surface area Derived from formula 1.97 m2 Anabel Bernal MA [facility]; [facility] Work Phone: 07-16-2022 09:08-0400 Body temperature 99 [degF] Anabel Bernal MA [facility]; Comprehensive Internal Medicine Work Phone: 07-16-2022 09:08-0400 Body weight 80.74 kg Anabel Bernal MA [facility]; [facility] Work Phone: 07-16-2022 09:08-0400 Diastolic blood pressure 82 mm[Hg] Anabel Bernal MA [facility]; [facility] Work Phone: Comment on above: Patient Position: Sitting; Cuff Location : Left Arm; Cuff Size: Standard 07-16-2022 09:08-0400 Heart rate 86 /min Anabel Bernal MA [facility]; [facility] Work Phone: Comment on above: Pattern: Regular 07-16-2022 09:08-0400 Respiratory rate 18 /min Anabel Bernal MA [facility]; [facility] Work Phone: Comment on above: Pattern: Unlabored 07-16-2022 09:08-0400 SaO2% (BldA) [Mass fraction] 98 % Anabel Bernal MA [facility]; [facility] Work Phone: Comment on above: Room air 07-16-2022 09:08-0400 Systolic blood pressure 120 mm[Hg] Anabel Bernal MA [facility]; [facility] Work Phone: Comment on above: Patient Position: Sitting; Cuff Location : Left Arm; Cuff Size: Standard 06-02-2022 15:49-0400 Body height 175.26 cm Judie Carr LPN [facility]; [facility] Work Phone: 06-02-2022 15:49-0400 Body mass index (BMI) [Ratio] 26.29 kg/m2 Judie Carr LPN [facility]; [facility] Work Phone: 06-02-2022 15:49-0400 Body surface area Derived from formula 1.97 m2 Judie Carr LPN [facility]; [facility] Work Phone: 06-02-2022 15:49-0400 Body temperature 97.3 [degF] Judie Carr LPN [facility]; [facility] Work Phone: 06-02-2022 15:49-0400 Body weight 80.74 kg Judie Carr LPN [facility]; [facility] Work Phone: 06-02-2022 15:49-0400 Diastolic blood pressure 72 mm[Hg] uJdie Carr LPN [facility]; [facility] Work Phone: Comment on above: Patient Position: Sitting; Cuff Location : Left Arm; Cuff Size: Standard 06-02-2022 15:49-0400 Heart rate 61 /min Judie Carr LPN [facility]; [facility] Work Phone: Comment on above: Pattern: Regular 06-02-2022 15:49-0400 Respiratory rate 16 /min Judie Carr LPN [facility]; [facility] Work Phone: Comment on above: Pattern: Unlabored 06-02-2022 15:49-0400 SaO2% (BldA) [Mass fraction] 97 % Judie Carr LPN [facility]; [facility] Work Phone: Comment on above: Room air 06-02-2022 15:49-0400 Systolic blood pressure 112 mm[Hg] Judie Carr LPN [facility]; [facility] Work Phone: Comment on above: Patient Position: Sitting; Cuff Location : Left Arm; Cuff Size: Standard 05-02-2020 07:22-0400 Body height 175.26 cm Alber Heredia LPN [facility]; [facility] Work Phone: 05-02-2020 07:22-0400 Body mass index (BMI) [Ratio] 25.41 kg/m2 Alber Heredia LPN [facility]; [facility] Work Phone: 05-02-2020 07:22-0400 Body surface area Derived from formula 1.94 m2 Alber Heredia LPN [facility]; [facility] Work Phone: 05-02-2020 07:22-0400 Body temperature 97.7 [degF] Alber Heredia LPN [facility]; [facility] Work Phone: Comment on above: Method: Temporal 05-02-2020 07:22-040 Body weight 78.04 kg Alber Heredia LPN [facility]; [facility] Work Phone: 05-02-2020 07:22-0400 Diastolic blood pressure 58 mm[Hg] Alber Heredia LPN [facility]; [facility] Work Phone: Comment on above: Patient Position: Sitting; Cuff Location : Left Arm; Cuff Size: Standard 05-02-2020 07:22-0400 Heart rate 88 /min Alber Heredia LPN [facility]; [facility] Work Phone: Comment on above: Pattern: Regular 05-02-2020 07:22-0400 Respiratory rate 16 /min Alber Heredia LPN [facility]; [facility] Work Phone: Comment on above: Pattern: Unlabored 05-02-2020 07:22-0400 SaO2% (BldA) [Mass fraction] 99 % Alber Heredia LPN [facility]; [facility] Work Phone: Comment on above: Room air 05-02-2020 07:22040 Systolic blood pressure 102 mm[Hg] Alber Heredia LPN [facility]; [facility] Work Phone: Comment on above: Patient Position: Sitting; Cuff Location : Left Arm; Cuff Size: Standard 02-08-2020 08:120400 Body height 175.26 cm Alber Heredia LPN [facility]; [facility] Work Phone: 02-08-2020 08:12-0400 Body mass index (BMI) [Ratio] 26.29 kg/m2 Alber Heredia LPN [facility]; [facility] Work Phone: 02-08-2020 08:12-0400 Body surface area Derived from formula 1.97 m2 Alber Heredia LPN [facility]; [facility] Work Phone: 02-08-2020 08:120400 Body temperature 98 [degF] Alber Heredia LPN [facility]; [facility] Work Phone: Comment on above: Method: Temporal 02-08-2020 08:120400 Body weight 80.74 kg Alber Heredia LPN [facility]; [facility] Work Phone: 02-08-2020 08:12-0400 Diastolic blood pressure 58 mm[Hg] Alber Heredia LPN [facility]; [facility] Work Phone: Comment on above: Patient Position: Sitting; Cuff Location : Left Arm; Cuff Size: Standard 02-08-2020 08:12-0400 Heart rate 78 /min Alber Heredia LPN [facility]; [facility] Work Phone: Comment on above: Pattern: Regular 02-08-2020 08:12-0400 Respiratory rate 16 /min Alber Heredia LPN [facility]; [facility] Work Phone: Comment on above: Pattern: Unlabored 02-08-2020 08:12-0400 SaO2% (BldA) [Mass fraction] 99 % Alber Heredia LPN [facility]; [facility] Work Phone: Comment on above: Room air 02-08-2020 08:12-0400 Systolic blood pressure 100 mm[Hg] Alber Heredia LPN [facility]; [facility] Work Phone: Comment on above: Patient Position: Sitting; Cuff Location : Left Arm; Cuff Size: Standard 02-01-2020 08:15-0400 Body height 175.26 cm Alber Heredia LPN [facility]; [facility] Work Phone: 02-01-2020 08:15-0400 Body mass index (BMI) [Ratio] 25.55 kg/m2 Alber Heredia LPN [facility]; [facility] Work Phone: 02-01-2020 08:15-0400 Body surface area Derived from formula 1.94 m2 Alber Heredia LPN [facility]; [facility] Work Phone: 02-01-2020 08:15-0400 Body temperature 97.8 [degF] Alber Heredia LPN [facility]; [facility] Work Phone: Comment on above: Method: Temporal 02-01-2020 08:15-0400 Body weight 78.49 kg Alber Heredia LPN [facility]; [facility] Work Phone: 02-01-2020 08:15-0400 Diastolic blood pressure 68 mm[Hg] Alber Heredia LPN [facility]; [facility] Work Phone: Comment on above: Patient Position: Sitting; Cuff Location : Left Arm; Cuff Size: Standard 02-01-2020 08:15-0400 Heart rate 89 /min Alber Heredia LPN [facility]; [facility] Work Phone: Comment on above: Pattern: Regular 02-01-2020 08:15-0400 Respiratory rate 16 /min Alber Heredia LPN [facility]; [facility] Work Phone: Comment on above: Pattern: Unlabored 02-01-2020 08:15-0400 SaO2% (BldA) [Mass fraction] 99 % Alber Heredia LPN [facility]; [facility] Work Phone: Comment on above: Room air 02-01-2020 08:15-0400 Systolic blood pressure 122 mm[Hg] Alber Heredia LPN [facility]; [facility] Work Phone: Comment on above: Patient Position: Sitting; Cuff Location : Left Arm; Cuff Size: Standard 02-27-2019 11:48-0400 BMI (Body Mass Index) 24.96 kg/m2 [facility] Work Phone: 02-27-2019 11:48-0400 Body [facility] 76.67 [facility] Work Phone: 02-27-2019 11:48-0400 BSA (Body Surface Area) 1.92 m2 [facility] Work Phone: 02-27-2019 11:48-0400 Height 175.26 cm [facility] Work Phone: 02-13-2019 13:48-0400 BMI (Body Mass Index) 24.96 kg/m2 Alber Heredia LPN [facility] Work Phone: 02-13-2019 13:48-0400 Body Temperature 98.9 [degF] Alber Heredia LPN [facility] Work Phone: Comment on above: Method: Temporal 02-13-2019 13:48-0400 Body weight 76.67 kg Alber Heredia LPN [facility] Work Phone: 02-13-2019 13:48-0400 BP Diastolic 58 mm[Hg] Alber Heredia LPN [facility] Work Phone: Comment on above: Patient Position: Sitting; Cuff Location : Left Arm; Cuff Size: Standard 02-13-2019 13:48-0400 BP Systolic 100 mm[Hg] Alber Heredia KALEB [facility] Internal Medicine Work Phone: Comment on above: Patient Position: Sitting; Cuff Location : Left Arm; Cuff Size: Standard 02-13-2019 13:48-0400 BSA (Body Surface Area) 1.92 m2 Alber Yan MANUEL [facility] Internal Medicine Work Phone: 02-13-2019 13:48-0400 Height 175.26 cm Alber Heredia LPN [facility] Medicine Work Phone: 02-13-2019 13:48-0400 Pulse (Heart Rate) 73 /min Alber Yan MANUEL [facility] Work Phone: Comment on above: Pattern: Regular 02-13-2019 13:48-0400 Pulse Oximetry 97 % Myranda Piersonwillie [facility] Internal Medicine Work Phone: Comment on above: Room air 02-13-2019 13:48-0400 Respiratory Rate 16 /min Alber Heredia LPN [facility] Internal Medicine Work Phone: Comment on above: Pattern: Unlabored 02-13-2019 13:48-0400 SaO2% (BldA) [Mass fraction] 97 % Alber Heredia LPN [facility]; [facility] Work Phone: Comment on above: Room air 02-13-2019 13:48-0400 Weight 76.67 kg Myranda Allison [facility] Internal Medicine Work Phone: 08-22-2018 10:01-0400 BMI (Body Mass Index) 25.64 kg/m2 Aria Rinadli [facility] Internal Medicine Work Phone: 08-22-2018 10:01-0400 Body Temperature 97.8 [degF] Aria Rinaldi [facility] Internal Medicine Work Phone: Comment on above: Method: Temporal 08-22-2018 10:01-0400 Body weight 78.74 kg Aria Rinaldi [facility] Internal Medicine Work Phone: 08-22-2018 10:01-0400 BP Diastolic 62 mm[Hg] Aria Rinaldi [facility] Internal Medicine Work Phone: Comment on above: Patient Position: Sitting; Cuff Location : Left Arm; Cuff Size: Standard 08-22-2018 10:01-0400 BP Systolic 112 mm[Hg] Aria Rinaldi [facility] Internal Medicine Work Phone: Comment on above: Patient Position: Sitting; Cuff Location : Left Arm; Cuff Size: Standard 08-22-2018 10:01-0400 BSA (Body Surface Area) 1.95 m2 Aria Rinaldi [facility] Internal Medicine Work Phone: 08-22-2018 10:01-0400 Height 175.26 cm Aria Rinaldi [facility] Medicine Work Phone: 08-22-2018 10:01-0400 Pulse (Heart Rate) 78 /min Aria Rinaldi [facility] Internal Medicine Work Phone: Comment on above: Pattern: Regular 08-22-2018 10:01-0400 Pulse Oximetry 98 % Myranda Allison [facility] Internal Medicine Work Phone: Comment on above: Room air 08-22-2018 10:01-0400 Respiratory Rate 16 /min Aria Rinaldi [facility] Internal Medicine Work Phone: Comment on above: Pattern: Unlabored 08-22-2018 10:01-0400 SaO2% (BldA) [Mass fraction] 98 % Aria Rinaldi [facility]; [facility] Work Phone: Comment on above: Room air 08-22-2018 10:01-0400 Weight 78.74 kg Myranda Allison [facility] Internal Medicine Work Phone: Encounters Encounter Date Encounter Type Care Provider Facility Start: 07-24-2025 End: 07-24-2025 ambulatory XAVIER PARTIDA [facility] Start: 07-24-2025 End: 07-24-2025 Office outpatient new 10 minutes Xavier Partida MD Work Phone: [facility] Comment on above: Closed fracture of r ight zygomatic arch, initial encounter (HCC) (Primary Dx) Start: 07-16-2025 End: 07-16-2025 Emergency department patient visit DR~[id number] UZIEL ARENAS MD Facility:[facility] Start: 05-22-2025 End: 05-22-2025 Emergency department patient visit Dr. Lindy Villegas DO Work Phone: -Emergency Department Work Phone: Start: 02-06-2025 End: 02-06-2025 Patient encounter procedure Jagdeep Ribeiro [facility] Work Phone: Start: 02-06-2025 End: 02-06-2025 ambulatory Lindy Villegas Facility:[facility] Start: 01-15-2025 End: 01-15-2025 ambulatory Lindy Villegas Facility:[facility] Start: 08-10-2024 End: 08-10-2024 ambulatory Darlene Birmingham Facility:[facility] Start: 07-05-2024 End: 07-05-2024 ambulatory Lindy Villegas Facility:[facility] Start: 06-15-2024 End: 06-15-2024 ambulatory Lindy Villegas Facility:[facility] Start: 02-23-2023 Review Darlene Birmingham CERTIFIED MEDICAL ASSISTANT Work Phone: [facility] Start: 02-23-2023 End: 02-23-2023 Office outpatient visit 15 minutes Darlene Birmingham CERTIFIED MEDICAL ASSISTANT Work Phone: [facility] Start: 01-19-2023 Non-patient / Non-visit GROUP ACCOUNT DIRECTOR-C Myranda Allison GROUP ACCOUNT DIRECTOR Work Phone: [facility] Start: 01-18-2023 Non-patient / Non-visit GROUP ACCOUNT DIRECTOR-C Myrnada Allison GROUP ACCOUNT DIRECTOR Work Phone: [facility] Start: 01-18-2023 Non-patient / Non-visit GROUP ACCOUNT DIRECTOR-C Myranda Piersonpamelaa GROUP ACCOUNT DIRECTOR Work Phone: [facility] Start: 01-17-2023 Non-patient / Non-visit GROUP ACCOUNT DIRECTOR-C Myranda Allison [facility] Start: 01-17-2023 Non-patient / Non-visit GROUP ACCOUNT DIRECTOR-C Myranda Allison GROUP ACCOUNT DIRECTOR Work Phone: [facility] Start: 01-16-2023 Non-patient / Non-visit GROUP ACCOUNT DIRECTOR-C Myranda Allison GROUP ACCOUNT DIRECTOR Work Phone: [facility] Start: 01-16-2023 End: 01-19-2023 Evaluation and management of inpatient GROUP ACCOUNT DIRECTOR-C Myranda Allison GROUP ACCOUNT DIRECTOR Work Phone: [facility]Pro[facility] Start: 01-04-2023 End: 01-04-2023 Patient encounter procedure GROUP ACCOUNT DIRECTOR-C Myranda Allison GROUP ACCOUNT DIRECTOR Work Phone: [facility] Start: 07-16-2022 End: 07-16-2022 Office outpatient visit 10 minutes Darlene Birmingham CERTIFIED MEDICAL ASSISTANT Work Phone: [facility] Start: 06-02-2022 End: 06-02-2022 Office outpatient visit 15 minutes Darlene Birmingham CERTIFIED MEDICAL ASSISTANT Work Phone: [facility] Start: 05-15-2020 Patient encounter procedure EVANGELISTA YANG [facility] Start: 05-05-2020 End: 05-05-2020 Annotation/Addendum Darlene Birmingham CERTIFIED MEDICAL ASSISTANT Work Phone: [facility] Start: 05-02-2020 End: 05-02-2020 Office outpatient visit 15 minutes Darlene Birmingham CERTIFIED MEDICAL ASSISTANT Work Phone: [facility] Start: 02-08-2020 End: 02-08-2020 Office outpatient visit 15 minutes Darlene Birmingham CERTIFIED MEDICAL ASSISTANT Work Phone: [facility] Start: 02-01-2020 End: 02-01-2020 Office outpatient visit 15 minutes Darlene Birmingham CERTIFIED MEDICAL ASSISTANT Work Phone: [facility] Start: 02-27-2019 Review Myranda reyes [facility] Start: 02-13-2019 Patient encounter procedure Myranda Christina [facility] Start: 02-13-2019 End: 02-13-2019 Office outpatient visit 15 minutes Myranda Christina [facility] Start: 08-22-2018 End: 08-22-2018 Office outpatient visit 15 minutes Myranda Christina [facility] Procedures Date Procedure Procedure Detail Performing Clinician Start: 05-22-[address] Lindy Villegas DO Work Phone: Start: 05-22-2025 Plain chest X-ray Dr. Lindy Villegas DO Work Phone: Start: 01-16-2023 End: 01-16-2023 History and Physical Exam Procedure Note: See Note; NOTES: [facility] Medical Records Department [address] [place] [address] History Physical Exam 01/16/23 0553 MR#: [id number] Acct: [id number] Name: ROYCE YUSUF Rep #: [id number] : 2000 From: Camryn Palma MD PCP: Dr. Rachael Verdin MD Status:REG ER Location: ED HPI - General General Date of Admission: 01/16/23 Date of Service: 01/16/23 Chief Complaint: Cough, persistent, atypical chest popping with coughing fits. HPI Narrative The patient is a 22 y/o M w/ PMHx: Anxiety and Depression, Tobacco use who presents to the [facility] ED on 01/16/23 with history of 2 to 3-week history of ongoing sinus congestion and pressure as well as facial discomfort in addition to cough with initially mild symptom improvement however patient worsened and at the time did not have any fever, chills, diaphoresis, nausea, emesis or loose stools or any marked dyspnea days it is worsened again with no specific fever, chills, diaphoresis, nausea, emesis or loose stools nor any marked dyspnea prompting initial urgent care evaluation 01/04/23 with prescription for Augmentin at that time and recommendation for repeat evaluation in 7 to 10 days if no improvement or worsening symptoms with patient now presenting secondary to persistent ongoing coughing with constant right-sided chest discomfort that has not abated with coughing episode on evening prior to day of presentation with sensation of a popping during the coughing fit on the right side of the chest with right-sided chest discomfort specifically worsened with coughing and deep inspiratory effort with improvement with rest with concurrent sore throat prompting eventual ED evaluation. Patient denies any shortness of breath, fever, chills, nausea or dyspnea and primarily presented secondary to discomfort to the right chest and persistent coughing. Patient denies any drug usage aside from cannabis including IV drug abuse. He denies any activities which would put dariana gaspar at risk for HIV. He reports being in a monogamous relationship with his girlfriend who is present . 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 In the ED patient administered naproxen 50 0 mg p.o. x1, Solu-Medrol 80 mg IV x1, diphenhydramine 25 mg IV x1 both administered secondary to hi story of rash with iodine administration as well as DuoNeb therapy and Levaquin 750 mg IV x1. PFSH Medical History Anxiety and depression Vaping nicotine dependence, tobacco product Medical History no medical history Home Medications sertraline 25 mg tablet (Zoloft) 25 mg PO DAILY 01/04/23 [History Last Taken Unknown] amoxicillin 875 mg-potassium clavulanate 125 mg tablet 1 tab PO BID 01/16/23 [History Last Taken Unknown] Allergy/AdvReac Type Severity Reaction Status Date / Time azithromycin Allergy Rash Verified 01/16/23 02:18 iodine Allergy Rash Verified 01/16/23 02:18 no significant family history (Denies marked maternal/paternal family history including HD, DM, CA.) Surgical History (Updated 01/16/23 @ 06:[address] Camryn Palma MD) History of tonsillectomy and adenoidectomy Surgical History no surgical history Social History (Updated 01/16/23 @ 06:[address] Camryn Palma MD) household members: other details: Lives with his parents. Smoking Status: Current every day smoker tobacco type: e-cigarettes Electronic Cigarette Use: with nicotine alcohol intake: current alcohol intake frequency: holidays/special occasions only substance use type: does not use ROS ROS Narrative Admission Review of Systems: CONSTITUTIONAL: No weight loss, fever, chills, + weakness or fatigue. HEENT: + Congestion, sore throat although improved. Eyes: No visual loss, blurred vision, double vision or yellow sclerae. Ears, Nose, Throat: No hearing loss, sneezing, runny nose. SKIN: No rash or itching, lesions, wounds. CARDIOVASCULAR: + chest pain, chest pressure or chest discomfort. No palpitations, edema, orthopnea, syncopal events. RESPIRATORY: + Cough occasionally productive. No shortness of breath, wheezing, hemoptysis. GASTROINTESTINAL: No anorexia, nausea, vomiting or diarrhea, abdominal pain, melena, BRBPR. GENITOURINARY: No dysuria, frequency, urgency or retention. NEUROLOGICAL: No headache, dizziness, syncope, paralysis, ataxia, numbness or tingling in the extremities, focal weakness, change in bowel or bladder control, seizure. MUSCULOSKELETAL: No muscle, back pain, joint pain or stiffness. HEMATOLOGIC: No anemia, bleeding or bruising. LYMPHATICS: No enlarged nodes. No history of splenectomy. PSYCHIATRIC: + history of depression or anxiety. ENDOCRINOLOGIC: No reports of sweating, cold or heat intolerance. No polyuria or polydipsia. ALLERGIES: No history of asthma, hives, eczema or rhinitis. Vital Signs Vital Signs Vital Signs: 01/16/23 02:14 01/16/23 02:18 01/16/23 05:23 Temperature 98.6 F Temperature Source Temporal Pulse Rate 67 70 Respiratory Rate 18 16 Respiratory Pattern Normal Blood Pressure 125/64 H Blood Pressure Mean 84 Pulse Ox 99 Oxygen Delivery Method Room Air 01/16/23 05:19 Temperature Temperature Source Pulse Rate 70 Respiratory Rate 15 Respiratory Pattern Blood Pressure 129/64 H Blood Pressure Mean 85 Pulse Ox 96 Oxygen Delivery Method Room Air Weight Weight: 169 lb 1.513 oz Body Mass Index (BMI) 26.4 Physical Exam Narrative Physical Examination: General: Awake, alert, oriented x 3 and cooperative, seated upright in the ED bed, no acute distress. Skin: Normal color, normal turgor, no icterus, no cyanosis. HEENT: AT/NC, EOMI, PERRLA, MMM, no carotid bruits or JVD noted. Lungs: Mildly diminished, mildly decreased effort but no evidence of any distress, despite CT findings no rales, ronchi or wheezing. Heart: Currently regular rate and rhythm; no gallop, rub audible. Abdomen: Soft, NTTP, ND, mildly hyperactive BS, no HSM. Extremities: No cyanosis, clubbing, or edema. Neurological: Patient awake, alert, oriented as noted, cognitive function intact; pupils equally reactive to light and accommodation, cranial nerves II-XII grossly normal, moving all 4 extremities, no focal deficits, strength preserved. Psychiatric: Affect appears mildly fatigued otherwise normal, no acute evidence of depressive or anxiety feelings but does have underlying history. Results Lab / Micro Data Result Diagrams: 01/16/23 05:30 01/16/23 05:30 Labs: Laboratory Results - last 24 hr 01/16/23 05:30: WBC 10.8, RBC 4.56 L, Hgb 13.6, Hct 41.9, MCV 91.9, MCH 29.8, MCHC 32.5, RDW Std Deviation 42.9, RDW Coeff of Starr 12.8, Plt Count 282, MPV 9.5, Immature Gran % (Auto) 0.200, Neut % (Auto) 71.1 H, Lymph % (Auto) 14.9 L, Stanley % (Auto) 2.4, Eos % (Auto) 10.8 H, Baso % (Auto) 0.6, Absolute Neuts (auto) 7.7, Absolute Lymphs (auto) 1.61, Nucleated RBC % 0 Micro: Microbiology 01/16/23 05:25 Nasal Secretion SARS-CoV-2 FLU Antigen (Rapid) - Final Radiology Impression Chest X-Ray 01/16/23 02:57 IMPRESSION: Focal masslike density right upper lobe may have a subtle lucent center which most likely represents pneumonia. There is a trace right effusion. Given the question of possible cavitation in right effusion recommend consideration for CT scan of the chest Electronically Signed: Ginger Harris MD at 3:21 EST , Chest CTA 01/16/23 03:23 IMPRESSION: Multifocal patchy masslike consolidation ranging in size to 4 to 1.5 cm within the upper lung zones. See image #52 series 601. Some with cavitation. The differential includes the possibility of a post primary tuberculous pneumonia versus the possibility of cavitary pneumonia. Potentially covid could have a cavitary appearance but typically the viral pneumonia is not isolated to the upper lung zones.. The differential include the possibility of septic emboli although thought to BE less likely given the primarily upper lung predominance. Electronically Signed: Ginger Harris MD at 5:09 EST , ADDENDUM: 01/16/23 0520 IMPRESSION: Multifocal patchy masslike consolidation ranging in size to 4 to 1.5 cm within the upper lung zones. See image #52 series 601. Some with cavitation. The differential includes the possibility of a post primary tuberculous pneumonia versus the possibility of cavitary pneumonia. Potentially covid could have a cavitary appearance but typically the viral pneumonia is not isolated to the upper lung zones.. The differential include the possibility of septic emboli although thought to BE less likely given the primarily upper lung predominance. N.B. : The above Results were Read Back by Ginger Harris MD to Ryan Muñoz DO, and understanding confirmed on 01/16/2023 05:13:44 (ET). Electronically Signed: Ginger Harris MD at 5:09 EST , Assessment Plan Assessment/Plan (1) Pneumonia: PLAN: Plan The patient is a 22 y/o M w/ PMHx: Anxiety and Depression, Tobacco use who presents to the [facility] ED on 01/16/23 with history of 2 to 3-week history of ongoing sinus congestion and pressure as well as facial discomfort in addition to cough with initially mild symptom improvement however patient worsened and at the time prompting initial urgent care evaluation 01/04/23 with prescription for Augmentin at that time and recommendation for repeat evaluation in 7 to 10 days if no improvement or worsening symptoms with patient now presenting secondary to persistent ongoing coughing. #1. Right upper lobe pneumonia, unclear specific type with cavitation: Will admit to medical surgical floor, pending labs upon requested evaluation of patient, will obtain HIV/hepatitis panel, will obtain COVID PCR and full respiratory viral panel, will obtain sputum mycobacterial assessment, will obtain urine drug screen, maintain on oxygen with wean as tolerated to room air, continue ATC duonebs, PRN albuterol, maintain on IV Zosyn and vancomycin therapy with requested MRSA screen pending further evaluation, pulmonary consulted as well as infectious disease with airborn precautious pending their evaluation to be cautious, encourage HOB, IS parameters w/ pending sputum cultures as well as urine antigens in addition to testing as noted. #2. Anxiety and depression: We will continue patient home low-dose sertraline regimen. #3. Tobacco Abuse: Encouraged cessation, inpatient consultation per RT, NR if desired. #4. DVT prophylaxis: Low risk, encourage ambulation. Admission Evaluation Time spent evaluating chart, patient history, patient evaluation, care planning and discussion with specialists: 60 minutes. Charges/Coding Visit Charges Inpatient E M: 48292 Init Hosp L2 01/16/23 0614 <Electronically signed by Camryn Palma MD> Cosigner Signature (if applicable): CC: Dr. Camryn Palma MD; Dr. Rachael Verdin MD Signed Darlene Vinnie ALVARADO Work Phone: Start: 01-16-2023 CT angiography of chest with contrast GROUP ACCOUNT DIRECTOR-Pantera Allison GROUP ACCOUNT DIRECTOR Work Phone: Start: 01-16-2023 End: 01-16-2023 CTA Chest W/WO Contrast Procedure Note: See Note; NOTES: [facility] Imaging Services [address] [place] [id number] CTA Chest W/WO Contrast MR#: [id number] Acct: [id number] Name: ROYCE YUSUF Rep #: [id number] : 2000 M 22 From: Ginger Harris MD PCP: Dr. Rachael Verdin MD Status: REG ER Study: CTA Chest W/WO Contrast Date of Exam: 01/16/23 Exam# [id number] Ordering Dr: Ryan Muñoz DO We are attempting to reach an attending provider to discuss findings. An addendum with communication details will be sent when the communication is complete. STUDY: CTA CHEST REASON FOR EXAM: Male, 22 years old. Mass RADIATION DOSAGE (If Supplied By Facility): CTDIvol = ( 7.60 ) mGy, DLP = ( 301.01 ) mGycm TECHNIQUE: The examination was performed with the intravenous administration of IV 100mL Isovue-370. Post-processing of the angiographic images was performed, with multiplanar reformation and 3D reconstruction. Individualized dose optimization techniques were used for this CT. COMPARISON: Chest x-ray January 16, 2023 FINDINGS: Normal enhancement of the main pulmonary artery and right and left pulmonary arteries. Normal enhancement of the bilateral peripheral pulmonary arteries. There is no demonstrated pulmonary embolism. Normal thoracic aorta and visualized great vessels. There is no demonstrated aortic dissection. Normal heart and pericardium. There is a suggestion that there is residual thymus. Normal hilar regions. Normal visualized trachea and bronchi. There is a visualized focus of consolidation measuring approximately 4.3 x 3.5 x 3.4 cm, within the right apex of the masslike appearance. There is a portion of this density which suggests possible cavitation. There are multifocal smaller densities within the lung apices measuring 1 to 1.5 cm some with lucent centrally located lucencies suggesting cavitation. This process is primarily within the upper lung zones. There is minimal lower lobe atelectasis and/or groundglass opacity. Normal pleura. Normal chest wall structures. Normal osseous structures. Normal visualized upper abdomen. CT/CTA Chest W/WO Contrast IMPRESSION: Multifocal patchy masslike consolidation ranging in size to 4 to 1.5 cm within the upper lung zones. See image #52 series 601. Some with cavitation. The differential includes the possibility of a post primary tuberculous pneumonia versus the possibility of cavitary pneumonia. Potentially covid could have a cavitary appearance but typically the viral pneumonia is not isolated to the upper lung zones.. The differential include the possibility of septic emboli although thought to BE less likely given the primarily upper lung predominance. Electronically Signed: Ginger Harris MD at 5:09 EST , CC: Dr. Rachael Verdin MD; Dr. Ryan Muñoz DO Physicist Cryogenics: Signed Darlene Birmingham CNP Work Phone: Start: 01-16-2023 End: 01-16-2023 Chest PA and Lateral Procedure Note: See Note; NOTES: [facility] Imaging Services [address] [place] [address] Chest PA and Lateral MR#: [id number] Acct: [id number] Name: ROYCE YUSUF Rep #: [id number] : 2000 M 22 From: Ginger Harris MD PCP: Dr. Rachael Verdin MD Status: [facility] ER Study: Chest PA and Lateral Date of Exam: 01/16/23 Exam# [id number] Ordering Dr: Ryan Muñoz DO STUDY: X-RAY CHEST REASON FOR EXAM: Male, 22 years old. Chest pain TECHNIQUE: PA and lateral views of the chest. COMPARISON: None. FINDINGS: There is a visualized focal masslike density within the right upper lobe this may have a subtle lucent center. There is a trace right effusion. Normal size heart. Normal mediastinum and yesy. Normal visualized pulmonary arteries. Normal visualized aortic arch and descending thoracic aorta. Normal visualized thoracic spine. Normal visualized ribs, clavicles, and shoulders. There is no demonstrated abnormality of the visualized soft tissue structures of the upper abdomen. RAD/Chest PA and Lateral IMPRESSION: Focal masslike density right upper lobe may have a subtle lucent center which most likely represents pneumonia. There is a trace right effusion. Given the question of possible cavitation in right effusion recommend consideration for CT scan of the chest Electronically Signed: Ginger Harris MD at 3:21 EST , CC: Dr. Rachael Verdin MD; Dr. Ryan Muñoz DO Physicist Cryogenics: Signed Darlene Birmingham CERTIFIED MEDICAL ASSISTANT Work Phone: Start: 01-16-2023 Plain chest X-ray GROUP ACCOUNT DIRECTOR-C Myranda Allison GROUP ACCOUNT DIRECTOR Work Phone: Start: 01-04-2023 End: 01-04-2023 Urgent Care Visit Report Procedure Note: See Note; NOTES: [facility] [address] [place] [address] OFFICE VISIT Date of Service: 01/04/23 MR#: [id number] Acct: [id number] Name: ROYCE YUSUF Rep #: [id number] : 2000 Provider: JESSICA Yusuf Age/Sex: 22/M Location: [facility] [place] Status: Signed Intake Vital Signs 01/04/23 13:09 Height 5 ft 9.5 in Weight: 167 lb 6 oz BMI 24.3 BP 100/70 Blood Pressure Location Lt brachial Position Sitting Respiration 22 H Pulse 80 Pulse Source Monitor Temp 98.4 F Temp Source Temporal Pulse Oximetry (%) 97 Oxygen Delivery Method room air Intake Visit Reasons: COLD SYMPTOMS/CHEST CONGESTION Allergies azithromycin Allergy (Verified 01/04/23 13:10) Rash iodine Allergy (Verified 01/04/23 13:10) Rash Medications amoxicillin 875 mg-potassium clavulanate 125 mg tablet 1 tab PO Q12H 10 days #20 tabs 01/04/23 [Rx Confirmed 01/04/23] sertraline 25 mg tablet (Zoloft) 25 mg PO DAILY 01/04/23 [History Confirmed 01/04/23] PFSH Social History (System 12/28/19 @ 15:58 by Janine Nichols) Smoking Status: Former smoker HPI HPI Details: ROYCE YUSUF, is a 22 M who presents to the office today for sinus congestion/pressure and pain as well as cough and congestion for the past 2 to 3 weeks. Patient states that his symptoms started to improve and then worsened over the past several days. He denies fever, chills, sweats. No nausea, vomiting, diarrhea. No hemoptysis, shortness of breath or difficulty breathing. No loss of taste or smell. No other associated symptoms or alleviating/aggravating factors. ROS Const Constitutional: No other (6 system ROS completed with pertinent findings in HPI otherwise normal.) Exam Const General: cooperative and healthy appearing HENMT Head: normal to inspection Ears: hearing grossly normal bilaterally, TM's normal bilaterally and EAC's normal Nose: nasal discharge purulent Face and sinus: sinus tenderness frontal and maxillary Mouth: oral mucosae normal Throat: abnormal tonsil bilaterally erythema and hypertrophy 1+ and postnasal drainage Resp Effort Inspection: normal respiratory effort Auscultation: Bilateral: Clear to Auscultation Cardio Palpation: normal PMI Rate: regular rate Rhythm: regular rhythm Neuro General: patient alert and CN's II-XI intact bilaterally Psych Appearance: grossly normal Mental Status: mental status grossly normal Coding Level of Care Code Off vis,new,level 3 Diagnoses Acute sinusitis J01.90 Assessment and Plan Assessment and Plan (1) Acute sinusitis: Status: Acute Medications: New amoxicillin-pot clavulanate 875-125 mg 1 TAB PO Q12H 10 days 20 tabs 0RF J01.90 - Acute sinusitis, unspecified Plan Augmentin as prescribed today. Encouraged to get plenty of rest, drink lots of clear liquids, and use Tylenol or Ibuprofen (unless contraindicated) for fever and comfort. Patient also educated on other symptomatic management techniques. To be seen in 7-10 days if no improvement; sooner if worsening of symptoms. Patient advised of potential red flags and when appropriate to report to the ED. Patient verbalized understanding and agreement with all the above. 01/04/23 8027 <Electronically signed by Royce LOPEZ> Date Royce LOPEZ Cosigner Signature: Date (if applicable) CC: Darlene Birmingham [facility] Work Phone: Start: 02-07-2020 End: 02-07-2020 Testicular with Arterial Flow Comments: See Note; NOTES: [facility] Imaging Services [address] [place] [address] Testicular with Arterial Flow MR#: [id number] Acct: [id number] Name: ROYCE YUSUF Rep #: [id number] : 2000 M 20 From: Rickey Valdez MD PCP: [facility] Cortes Status: REG CLI Study: Testicular with Arterial Flow Date of Exam: 02/07/20 Exam# [id number] Ordering Dr: Myranda Allison STUDY: SCROTUM ULTRASOUND REASON FOR EXAM: Male, 20 years old. RT TESTICULAR PAIN ON AND OFF 2YRS TECHNIQUE: Ultrasound evaluation of the scrotum was performed with color Doppler and static carbone-scale imaging. COMPARISON: None. FINDINGS: RIGHT TESTICLE INTRATESTICULAR: There is a normal size of the right testicle. The right testicle measures 5.2 cm x 3.2 cm x 3.1 cm. There is a homogenous echotexture. There is normal arterial and normal venous vascularity. There is no demonstrated right testicular mass or cyst. EXTRATESTICULAR: The epididymis is normal in size. The epididymis head measures 1.2 cm x 1.7 cm x 1.1 cm. There is normal vascularity of the epididymis. There is a well-defined cystic structure within the epididymis, without internal echoes, consistent with an epididymal cyst. This measures 5 mm x 7 mm x 4 mm. There is a small hydrocele. There is no demonstrated varicocele. There is no demonstrated extratesticular mass or cyst. LEFT TESTICLE INTRATESTICULAR: There is a normal size of the left testicle. The left testicle measures 5.3 cm x 3.2 cm x 2.7 cm. There is a homogenous echotexture. There is normal arterial and normal venous vascularity. There is no demonstrated left testicular mass or cyst. EXTRATESTICULAR: The epididymis is normal in size. The epididymis head measures 1 cm x 1.6 cm x 1.2 cm. There is normal vascularity of the epididymis. There are multiple small epididymal cysts. The largest measures 4 mm x 3 mm x 4 mm. There is a small hydrocele. There is no demonstrated varicocele. There is no demonstrated extratesticular mass or cyst. US/Testicular with Arterial Flow IMPRESSION: Small bilateral epididymal cysts right greater than left with tiny bilateral hydroceles. Electronically Signed: Rickey Courtney, at 15:40 EDT , Service support , CC: EMA Allison Physicist Cryogenics: Signed Myranda Allison Work Phone: Investigation of transfusion reaction GROUP ACCOUNT DIRECTOR-Pantera Allison GROUP ACCOUNT DIRECTOR Work Phone: Legionella pneumophi la antigen assay GROUP ACCOUNT DIRECTOR-C Myranda Allison GROUP ACCOUNT DIRECTOR Work Phone: SARS-CoV-2 & FLU Ant igen (Rapid) GROUP ACCOUNT DIRECTOR-Pantera Allison GROUP ACCOUNT DIRECTOR Work Phone: Streptococcus pneumo niae Antigen (M GROUP ACCOUNT DIRECTOR-C Myranda Allison GROUP ACCOUNT DIRECTOR Work Phone: Plan of Treatment Date Care Activity Detail Author Start: 07-22-2025 COVID-19 Vaccine ( season) COVID-19 Vaccine ( season) [facility] Start: 07-22-2025 Influenza vaccination Influenza Vacc ine (#1) [facility] Start: 05-22-2025 [facility] Start: 05-22-2025 [facility] Start: 02-23-2023 Procedure Education Eprescribe d prescriptions (G8553) [facility] Work Phone: Start: 01-19-2023 Patient discharge [facility] Start: 01-19-2023 [facility] Start: 01-18-2023 [facility] Start: 01-17-2023 [facility] Start: 01-16-2023 Following clinical pathway protocol [facility] Start: 01-16-2023 Assessment of risk o f venous thromboembolism [facility] Start: 01-16-2023 Consultation [facility] Start: 01-16-2023 Elevation of head of bed [facility] Start: 01-16-2023 Inhalation therapy procedure [facility] Start: 01-16-2023 Insertion of cathete r into peripheral vein [facility] Start: 01-16-2023 Introduction of urin chava catheter [facility] Start: 01-16-2023 Measuring intake and output [facility] Start: 01-16-2023 Methicillin resistan t Staphylococcus aureus screening test [facility] Start: 01-16-2023 Oxygen therapy [facility] Start: 01-16-2023 Patient education [facility] Start: 01-16-2023 Providing care accor ding to standard [facility] Start: 01-16-2023 Provision of activit y privileges [facility] Start: 01-16-2023 Referral to service [facility] Start: 01-16-2023 Tobacco use cessatio n education [facility] Start: 01-16-2023 [facility] Start: 01-16-2023 Hepatitis B surface antigen measurement [facility] Start: 01-16-2023 Hepatitis C antibody measurement [facility] Start: 01-16-2023 End: 01-16-2023 [facility] Start: 01-16-2023 Viral nucleic acid assay [facility] Start: 01-16-2023 Legionella pneumophi la Ag [Presence] in Urine [facility] Start: 01-16-2023 Streptococcus pneumo niae antigen assay [facility] Start: 01-16-2023 Verification routine [facility] Start: 01-16-2023 Admission procedure [facility] Start: 01-16-2023 End: 01-16-2023 Blood culture [facility] Start: 07-16-2022 Procedure Education Eprescribe d prescriptions (G8549) [facility]; [facility] Work Phone: Start: 07-16-2022 Provider Instruction s for Treatment Follow up in 6 months [facility]; [facility] Work Phone: Start: 06-02-2022 Patient Education Compr [facility]; [facility] Work Phone: Start: 06-02-2022 Procedure Education Eprescribe d prescriptions (G8553) [facility]; [facility] Work Phone: Start: 06-02-2022 Provider Instruction s for Treatment Follow up in 6 weeks [facility]; [facility] Work Phone: Start: 07-02-2021 Tetanus vaccination Tetanus: Every 1 0yrs [facility] Start: 05-02-2020 Procedure Education Eprescribe d prescriptions (G8553) [facility]; [facility] Work Phone: Start: 05-02-2020 Provider Instruction s for Treatment [facility]; [facility] Work Phone: Start: 02-08-2020 Procedure Education Eprescribe d prescriptions (G8553) [facility]; [facility] Work Phone: Start: 02-01-2020 Procedure Education Eprescribe d prescriptions (G8553) [facility]; [facility] Work Phone: Start: 02-01-2020 Provider Instruction s for Treatment Follow up in 1 week [facility]; [facility] Work Phone: Start: 02-27-2019 Urnls dip stick/tabl et rgnt non-auto w/o micrscp Urinalysis, Office (24467) [facility] Work Phone: Start: 02-13-2019 Blood count complete auto&auto difrntl wbc CBC, Platelets & Auto Diff (62233) [facility] Work Phone: Start: 02-13-2019 Comprehensive metabo lic panel Metabolic Panel, Comprehensive (59339) [facility] Work Phone: Start: 02-13-2019 Culture bacterial quanttative colony count urine URINE EDILMA CULTURE (VIVEK COL COUNT) (66962) [facility] Work Phone: Start: 02-13-2019 Procedure Education Eprescribe d prescriptions (G8553) [facility]; [facility] Work Phone: Start: 02-13-2019 Provider Instruction s for Treatment Follow up - Make appt after diagnostic tests [facility]; [facility] Work Phone: Start: 08-22-2018 Procedure Education Eprescribe d prescriptions (G8553) [facility]; [facility] Work Phone: Start: 08-22-2018 Provider Instruction s for Treatment Follow up in 2 weeks [facility]; [facility] Work Phone: Start: 2017 Hepatitis C screening Hepatitis C Sc reening [facility] Start: 2014 HIV screening HIV Screening [facility] Start: 2011 Depression screening using PHQ-9 (Patient Health Questionnaire 9) score Depression Screening/Follow-Up (PHQ-2/9) [facility] Start: 2002 History and physical examination, annual for health maintenance Wellness Visit [facility] Acid fast bacilli culture [facility] Acid fast bacilli culture [facility] Acid fast bacilli culture [facility] Bacteria identified in Blood by Culture Blood Culture [facility] Bacteria identified in Blood by Culture Blood Culture [facility] Bacteria identified in Sputum by Respiratory culture [facility] End: 07-24-2026 CT Maxillofacial region WO contrast CT Maxillofacial Without Contrast 3D Imaging Routine Closed fracture of right zygomatic arch, initial encounter (HCC) 1 Occurrences starting 07/24/2025 until 07/24/2026 [facility] Work Phone: Comment on above: 1 Occurrences starti ng 07/24/2025 until 07/24/2026 Hepatitis B virus surface IgG Ab [Presence] in Serum [facility] Histoplasma capsulat um Ab [Presence] in Serum by Immune diffusion (ID) [facility] HIV 1+2 Ab+HIV1 p24 Ag [Presence] in Serum or Plasma by Immunoassay [facility] In-vitro immunologic test [facility] Measurement of Aspergillus flavus antibody [facility] Measurement of Aspergillus fumigatus antibody [facility] Measurement of Aspergillus niger antibody [facility] Mycobacterium sp identified in Unspecified specimen by Organism specific culture [facility] Mycobacterium sp identified in Unspecified specimen by Organism specific culture [facility] Mycobacterium sp identified in Unspecified specimen by Organism specific culture [facility] Mycobacterium tuberculosis tuberculin stimulated gamma interferon [Presence] in Blood [facility] Patient Education [facility] Work Phone: Patient referral [facility] Work Phone: Respiratory microbia l culture Respiratory Culture [facility] SARS-CoV-2 (COVID-19 ) Ag [Presence] in Respiratory specimen by Rapid immunoassay [facility] Work Phone: [facility] Work Phone: [facility] Work Phone: [facility] Work Phone: [facility] Payers Date Payer Category Payer Managed Care PPO (unspecified) MED [facility] PPO [id number] 2024 Self-pay [id number] 2005 Unknown [id number] 1999 Unknown [id number] 716 1999 Unknown [id number] 651 1999 Unknown [id number]. 419 1999 Unknown [id number] 903 1959 Unknown [id number] Unknown [place] [employer]/BS Unknown [id number]. 462 Unknown [id number] [id number]. 462 Unknown [id number] [id number]. 462 Unknown [id number] 2.16.840.1.937201.3.579.2. 462 Unknown [id number] [id number]. 462 Unknown [id number] [id number]. 462 Social History Date Type Detail Facility Start: 01-16-2023 End: 01-16-2023 Tobacco smoking status NEIS Unknown if ever smoked [facility] Start: 2000 Sex Assigned At Male [facility] Start: 05-22-2025 Tobacco smoking stat us NEIS Smokes tobacco daily (finding) [facility] Start: 2000 Sex assigned at Not on file [facility] Gender identity Not on file [facility] Goals Date Patient Goal Desired Activity /State Functional Status Date Assessment Result Facility 01-19-2023 Functional status Activity Ability Indepe ndent [facility] Work Phone: 01-19-2023 Functional status Ambulates;Up ad hanh [facility] Work Phone: Mental Status Date Assessment Result Facility 05-22-2025 Cognitive function Voice/Name [facility] Work Phone: 01-19-2023 Cognitive function Voice/Name [facility] Work Phone: Clinical Notes 01-16-2023 to 08-15-2025 Xavier Partida MD - 08/15/2025 11:29 AM EDT Note Date & Type Note Facility 08-15-2025 Note Patient seen at [facility]. Referred for closed right zygomatic arch fracture. I do not have any images to review. I ordered a CT scan, but patient has no interest in surgery, so I suspect he will not get it. AUTHENTICATED BY XAVIER PARTIDA, ON 08/15/2025 11:31:12 [facility] 08-15-2025 History of Presen t illness Narrative Patient seen at [facility]. Referred for closed right zygomatic arch fracture. I do not have any images to review. I ordered a CT scan, but patient has no interest in surgery, so I suspect he will not get it. documented in this encounter [facility] 05-22-2025 Discharge summary [facility] 05-22-2025 Radiology Diagnostic study note [facility] Imaging Services [address] [place] [address] Chest 1 View (Portable) MR#: [id number] Acct: [id number] Name: ROYCE YUSUF Rep #: [id number] 0 : 2000 M 25 From: Tiffany Quintero MD PCP: Dr. Lindy Villegas DO Status: RE G ER Study:Chest 1 View (Portable) Date of Exam: 05/22/25 Exam# [id number] Ordering Dr: Jason Herrera DO PROCEDURE: CHEST 1 VIEW (PORTABLE) 05/22/2025 REASON FOR EXAM: CHEST PAIN TECHNIQUE: 2 AP portable views COMPARISON: 01/16/2023 FINDINGS: Hardware: EKG leads overlie the chest Heart: The heart size is normal. Lungs: The lungs are clear. Bones: The bones are unremarkable. Other: RAD/Chest 1 View (Portable) IMPRESSION: No acute pulmonary process, no interval change Reading Location: [id number] CC: Dr. Lindy Villegas DO; Dr. Sai Herrera DO ~ Physicist [employer]ogenics: Signed [facility] 05-22-2025 Discharge summary Note Date/Time May 22, 2025 6:30pm [facility] Medical Records Department [address] [place] [address] Emergency Department Summary 05/22/25 MR#: [id number] Acct: [id number] Name: ROYCE YUSUF Rep #:[id number] : 2000 25 From: Sai Esquivel PCP: Dr. Lindy Villegas, DO Status:RE G ER Location: ED HPI History of Present Illness Chief Complaint: Chest Pain PFSH PFSH Medical History Vaping nicotine dependence, tobacco product Anxiety and depression Home Medications ?Medication ?Instructions ?Recorded ?Last Taken ?Type ascorbic acid (vitamin C) 500 mg 500 mg PO QDAY Unknown History tablet calcium carbonate (Tums) 200 mg PO TID PRN 01/15/25 U nknown History duloxetine 30 mg capsule,delayed 30 mg PO QDAY 5 Unknown History release Allergy/AdvReac Type Severity Reaction Status Date / Time azithromycin Allergy Rash Verified 02/06/25 17:45 iodine Allergy Rash Verified 02/06/25 17:45 Surgical History History of tonsillectomy and adenoidectomy Social History (Updated 01/15/25 @ 15:14 by Jillian Grover) household members: other details: Lives with his parents. Smoking Status: Current every day smoker tobacco type: e-cigarettes Electronic Cigarette Use: with nicotine alcohol intake: current alcohol intake frequency: 3 or more drinks per day Alcohol type: beer substance use type: does not use EXAM Physical Exam Const Vital Signs: 05/22/25 14:07 05/22/25 14:27 05/22/25 16:06 Temperature 97.4 F L Temperature Source Oral Pulse Rate 67 59 L Respiratory Rate 16 10 L Respiratory Effort Normal Blood Pressure 133/77 H 114/75 Blood Pressure Mean 95 88 Pulse Ox 100 100 Oxygen Delivery Method Room Air 05/22/25 18:00 Temperature Temperature Source Pulse Rate 74 Respiratory Rate 15 Respiratory Effort Blood Pressure Blood Pressure Mean Pulse Ox 99 Oxygen Delivery Method MDM MDM MDM Narrative Medical decision making narrative: HISTORY OF PRESENT ILLNESS: Chief complaint: Chest pain 25-year-old male presents with chest pain to begin 11 AM. He states it was like I was walking through a dream. Notes it began suddenly. Denies associated shortness of breath. He denies vomiting but does note 2 episodes of watery stool today. Denies sick contacts, recent surgery, hospitalization, antibiotics, new foods. Denies pain at this time. No leg swelling. No cough fever or chills. No orthopnea, paroxysmal active dyspnea noted. The patient denies recent surgery in the last 4 weeks or immobilization in the last 3 days, denies previous diagnosis of DVT or PE, hemoptysis, unilateral leg swelling or malignancy with treatment the last 6 months or palliative. No estrogen use noted. Patient denies sudden onset of pain, no tearing sensation, no migratory symptoms, no new numbness, weakness or loss of sensation. Patient denies familyhistory or personal history of Connective tissue disorders (Marfan's Syndrome, Nan Danlos etc) REVIEW OF SYSTEMS: Pertinent positives: Chest pain Pertinent negatives: As per HPI PHYSICAL EXAM: Nursing triage notes reviewed, Vital signs reviewed Constitutional: please see mdm HENT: MMM Eyes: Pupils equal round and reactive to light, Extraocular muscles intact Neck: No stridor, no JVD, full neck ROM Lungs: Clear to auscultation, No wheezing or rales. No increased work of breathing, no conversational dyspnea, no accessory muscle use, no nasal flaring. No respiratory distress noted Heart: Regular rate and rhythm, No murmurs, No rubs and No gallops, 2+ distal pulses (radial, femoral, posterior tibial) in all extremities Abdomen: Soft, there is no tenderness, rigidity, rebound or guarding, no obviousperitoneal signs, no palpable pulsatile abdominal masses, no auscultated abdominal bruit : No CVAT Extremities: No edema Neuro: No new focal neurological deficits, cranial nerves II through XII intact,5/5 strength in all present extremities. Intact sensation to light touch in all present extremities, 2+ reflexes bilateral patella tendons. Skin: No rash or lesions noted MEDICAL DECISION MAKING: Chief Complaint: please see HPI External records reviewed: Reviewed prior imaging studies: Reviewed CT of the chest from December 2022 which was read as masslike consolidation in the right chest. He was admitted at this time and started antibiotics which was ultimately de-escalated. No clear source was found although the patient did have a positive fungal culture Factors affecting care: none history of cavitary lung lesion Social determinants of health: History of tobacco use and vaping History obtained from others: Significant other Consults: none MDM Narrative: The patient was initially hemodynamically stable, afebrile and nontoxic-appearing. Exam without focal cardiopulmonary normalities. No stigmata of CHF,VTE or aortic dissection I considered the following differential diagnosis: ACS, arrhythmia, anemia, electro disturbance, PE, aortic dissection I obtained a broad lab and image workup to further determine if the patient was suffering from a life-threatening etiology. While I considered PE, aortic dissection the patient's history and physical examnot consistent with these diagnoses as such additional testing such as D-dimer or CT scans were not indicated at this time. ALL IMAGES (IF OBTAINED) HAVE BEEN PERSONALLY REVIEWED AND INTERPRETED BY MYSELF. EKG with normal sinus rhythm rate of 71, normal axis, no intervals, no STEMI High-sensitivity troponin is negative, no evidence of myocardial ischemiax2 since ruling out ACS and makes PE much less CBC without leukocytosis, severe anemia, no thrombocytopenia. BMP without evidence of significant electrolyte abnormalities, no anion gap, no acute kidney injury. I have personally reviewed the patient's chest x-ray. Chest x-ray is unremarkable for pulmonary edema, pneumothorax, pneumonia or focal cardiopulmonary abnormality. The synthesis of the patient's history, physical exam, labs imaging shows no acute life or limb threat etiology. The patient is appropriate for discharge home as his vitals are stable his labs images are negative. Strict return precautions were discussed The patient and/or family, caregivers express understanding. The patient and/orfamily, caregivers agrees with the plan. Shared decision making: I will have a discussion with the patient and or visitors regarding risk/benefits of further testing or admission. They will be made aware of of the risk/benefits inherent in this decision they will be given the opportunity to voice understanding. Total critical care time today provided was at least 0 minutes. This excludes separately billable procedures. Critical care time (if documented) is secondary to the patient having high probability of clinically significant/life threatening deterioration in the patient's condition which required my urgent intervention. Impression: 1. Acute chest pain 2. History of tobacco Dispo: Discharge home This note was generated with Qulsar dictation software. It may contain incorrectwords, spelling, and punctuation that were not noted in review of the chart prior to signing. Lab Data Labs: Laboratory Results - last 24 hr 05/22/25 05/22/25 15:20 17:36 WBC 7.2 RBC 5.04 Hgb 15.0 Hct 44.2 MCV 87.7 MCH 29.8 MCHC 33.9 RDW Std Deviation 41.9 RDW Coeff of Starr 13.1 Plt Count 294 MPV 9.5 Immature Gran % (Auto) 0.300 Neut % (Auto) 54.9 Lymph % (Auto) 35.2 Stanley % (Auto) 7.0 Eos % (Auto) 2.2 Baso % (Auto) 0.4 Absolute Neuts (auto) 3.9 Absolute Lymphs (auto) 2.52 Nucleated RBC % 0 Sodium 138 Potassium 4.0 Chloride 103 Carbon Dioxide 21.2 Anion Gap 14 BUN 13 Creatinine 0.80 Estim Creat Clear Calc 144.67 Est GFR (MDRD) Non-Af 125 BUN/Creatinine Ratio 15.8 Glucose 87 Calcium 9.7 Troponin T High Sens < 6 Troponin T Hi Sens 2 Hr < 6 Radiography Diagnostic Testing: Clinical Impression(s) from Imaging Studies Chest X-Ray 05/22/25 14:53 IMPRESSION: No acute pulmonary process, no interval change Reading Location: [facility] Discharge Plan Triage Chief Complaint: Chest Pain ED Provider: Sai Herrera Dx/Rx/DC Orders Clinical Impression: Chest pain Instructions: Chest Pain [facility] Prescriptions: No Action duloxetine 30 mg capsule,delayed release(DR/EC) 30 mg PO QDAY ascorbic acid (vitamin C) 500 mg tablet 500 mg PO QDAY calcium carbonate [Tums] 200 mg calcium (500 mg) tablet,chewable 200 mg PO TID PRN Primary Care Provider: Lindy Villegas Referrals: Lindy Villegas DO [Primary Care Provider] - Activity Restrictions/Additional Instructions: Thank you for trusting us with your care today! Your labs images were unremarkable. No sign of damage to your heart or other life-threatening issues were identified Please take Tylenol (2 pills, 650 mg), ibuprofen (2 pills, 400 mg) every 6 hoursas needed for pain and fever control. Please return to the emergency department if your symptoms change or worsen. Please follow with your primary care physician for further outpatient evaluationand management. Print Language: Uzbek Disposition Disposition: Home, Self Care What to do if you have Problems For any increased pain, shortness of breath, bleeding, nausea or vomiting, chestpain, or any unexpected problems, contact your Primary Care Provider. Call [facility] ([phone]) or report to the closest Emergency Room. Call 911 if necessary. 05/22/25 1830 <Electronically signed by Sai Herrera DO> Cosigner Signature (if applicable): CC: Dr. Lindy Villegas DO ~ Signed [facility] Work Phone: 1(728) 719-865203-01-[address] Deng [facility] January 19, 2023 5:08pm Note Date/Time January 19, 2023 2:08 pm [facility] Medical Records Department [address] [place] [address] Progress Note - S Iron Worker 01/19/23 1406 MR#: [id number] Acct: [id number] Name: ROYCE YUSUF Rep #:[id number] : 2000 22 From: Kirby Deng MD PCP: Dr. Rachael Verdin MD Status:ADM I N Location: [place] [address] Assessment & Plan Assessment/Plan (1) Chest pain: (2) Abnormal CT of the chest: PLAN: Plan RECOMMENDATIONS: 1. Okay to DC respiratory isolation 2. Discontinuation of all vaping products 3. Okay to discharge from pulmonary perspective 4. Antibiotics per infectious disease 5. Outpatient complete PFT and repeat CT without contrast scan in 4 to 6 weeks 6. Will need a bronchoscopy if there is progression on CT scan as an outpatient 7. Okay to use NSAIDs for pleuritic chest pain IMPRESSIONS: 1. Abnormal CT scan Patient with multiple areas of peripheral upper lobe groundglass opacitiesand some areas suggestive of possible cavitation. Viral and TB work-up has beenunremarkable. Discussed with the patient that the standard of care would be to proceed with a bronchoscopy with BAL. However, patient has significant concernsthat the procedure is too many risks. After extensive discussion, patient will follow-up in our office in 2 weeks with a PFT and a repeat CT scan in 4 to 6 weeks. If there is progression of disease, will proceed with a bronchoscopy as an outpatient. Patient has tested negative for TB, so is okay to resume normal activity. Stressed to the patient that there is significant concern for lipoid pneumonia in all vaping products should be discontinued immediately, especially if the plan is to avoid a bronchoscopy in the future. Patient and significant other voiced understanding. 2. Anxiety/depression/tobacco abuse/protracted course Complicates care, management, recovery and prognosis. Okay to continue with baseline medications. Patient may benefit from referral to behavioral health to help with anxiety and vaping dependence. Subjective Subjective Patient did well overnight. No acute issues were reported. Patient subjectively feels unchanged compared to yesterday. Patient is not reporting any significant cough or fever. Patient feels strong enough to go home. Objective Data Objective Data Vital Signs: Vital Signs Temp Pulse Resp BP Pulse Ox O2 Del Method 36.1 C L 54 L 14 108/61 99 Room Air 01/19/23 09:24 01/19/23 09:24 01/19/23 09:24 01/19/23 09:24 01/19/23 11:01 01/19/23 09:30 Oxygen Delivery Method Room Air Weight: 78.1 kg Body Mass Index (BMI) 26.9 Intake & Output: Intake and Output for Last 24 Hours 01/17/23 01/18/23 01/19/23 23:59 23:59 23:59 Intake Total 5667 / 5967 2461 / 2701 1377 / 1377 Output Total 0 / 0 Balance 5667 / 5967 2461 / 2701 1377 / 1377 Lab / Micro Data Attestation: I reviewed the patient's lab results. Result Diagrams: 01/19/23 04:13 01/19/23 04:13 Labs: Laboratory Results - last 24 hr 01/19/23 04:13: WBC 8.7, RBC 4.49 L, Hgb 13.3, Hct 40.8, MCV 90.9, MCH 29.6, MCHC 32.6, RDW Std Deviation 43.5, RDW Coeff of Starr 13.1, Plt Count 277, MPV 9.4, Immature Gran % (Auto) 0.300, Neut % (Auto) 45.5 L, Lymph % (Auto) 31.1, Stanley % (Auto) 6.3, Eos % (Auto) 15.9 H, Baso % (Auto) 0.9, Absolute Neuts (auto) 3.9, Absolute Lymphs (auto) 2.70, Nucleated RBC % 0 01/19/23 04:13: Sodium 142, Potassium 3.4 L, Chloride 108 H, Carbon Dioxide 27.0, Anion Gap 7, BUN 8, Creatinine 0.68 L, Estim Creat Clear Calc 157.96, Est GFR (MDRD) Af Amer 185, Est GFR (MDRD) Non-Af 153, BUN/Creatinine Ratio 11.8, Glucose 97, Calcium 8.8, Total Bilirubin 0.40, AST 14 L, ALT 18, Alkaline Phosphatase 69, Total Protein 6.7, Albumin 3.5, Globulin 3.2, Albumin/Globulin Ratio 1.1 01/19/23 10:35: Vancomycin Trough 16.5 H Micro: Microbiology 01/18/23 14:58 Sputum, Expectorated/Coughed Respiratory Culture - Preliminary Appears to be normal respiratory deo. Further studies to follow. 01/16/23 15:15 Sputum, Expectorated/Coughed Gram Stain - Final 01/16/23 15:15 Sputum, Expectorated/Coughed Respiratory Culture - Final Mixed normal respiratory deo. No Streptococcus pneumoniae, beta-hemolytic Streptococcus or Staphylococcus aureus isolated. 01/16/23 05:30 Blood Culture (Wb) - Anticubital Left Blood Culture - Preliminary No growth in 48 hours. 01/16/23 05:25 Blood Culture (Wb) - Anticubital Right Blood Culture - Preliminary No growth in 48 hours. 01/16/23 06:07 Mucosa - Nose Respiratory Panel (PCR) - Final 01/16/23 06:10 Urine, Clean Catch Legionella Antigen - Final 01/16/23 06:10 Urine, Clean Catch Streptococcus pneumoniae Antigen (M - Final 01/16/23 05:25 Nasal Secretion SARS-CoV-2 & FLU Antigen (Rapid) - Final Physical Exam Const alert, oriented x3 and no apparent distress General Appearance: cooperative and well developed HEENT normocephalic, head/scalp atraumatic and moist oral mucous membranes Eyes PERRL and EOMs intact bilaterally Neck full ROM and no lymphadenopathy Chest Chest Narrative: Pain reproducible on palpation Resp normal respiratory effort and no use of accessory muscles Resp Narrative: Some splinting with deep inhalation Effort and Inspection: able to speak in complete sentences Auscultation: wheezes; Negative for rales or rhonchi Percussion: Negative for dullness Cardio regular rate, regular rhythm, S1 normal heart sound, S2 normal heart sound, no murmurs, no rub and no gallops GI normal to inspection, nondistended, normoactive bowel sounds no CVA tenderness Extremity no clubbing, cyanosis or edema Skin no rashes or lesions noted Skin Narrative: Multiple tattoos noted Neuro oriented x3, CN's II-XII intact bilaterally, moves all extremities and no focal motor deficits Psych cooperative and affect normal Charges/Coding Visit Charges Inpatient E&M: 31927 Subs Hosp L2 01/19/23 1708 <Electronically signed by Kirby Deng MD> Cosigner Signature (if applicable): CC: ~ Signed [facility] Work Phone: 1(410) 769-262403-01-[address] Mejias [facility] January 19, 2023 1:53pm Note Date/Time January 19, 2023 1:53 pm [facility] Medical Records Department [address] [place] [id number] Progress Note - Infect Disease 01/19/23 1352 MR#: [id number] Acct: [id number] Name: ROYCE YUSUF Rep #:[id number] : 2000 From: Amado hutchison MD PCP: Dr. Rachael Verdin MD Status:ADM I N Location: [place] [address] Physical Exam Narrative Feeling about the same, no fever, some intermittent thick sputum Const alert and no apparent distress Resp normal air movement and clear to auscultation bilaterally Cardio regular rate and regular rhythm GI soft to palpation, non-tender and non-distended Skin no rashes or lesions noted ID ID: Route of nutrition/ use of supplements: [] Nutritional Intake: [] IV Site: [] Walter Catheter: [] Assessment & Plan Assessment/Plan (1) Abnormal CT of the chest: PLAN: Pending aspergillus, histo, and TB quantiferon. Cont unasyn, will stop vanc. If AFB smears are neg, ok to d/c isolation. Will follow 01/19/23 1353 <Electronically signed by Amado Mejias MD> Cosigner Signature (if applicable): CC: ~ Signed [facility] Work Phone: 1(430) 909-524503-01-[address] Mejias [facility] January 19, 2023 12:22pm Note Date/Time January 19, 2023 11:4 4am [facility] Medical Records Department [address] [place] [address] Pharmacokinetic/Renal -Consult 01/19/23 1144 MR#: [id number] Acct: [id number] Name: ROCYE YUSUF Rep #:[id number] : 2000 22 From: Baylee Ornelas PCP: Dr. Rachael Verdin MD Status:ADM I N Y Location: [place] [address] Consult Pharmacy has been consulted to manage selected antiobiotic: Vancomycin Type of Consult: Follow-up Labs: Sodium 142 mmol/L (136-145) 01/19/23 04:13 Potassium 3.4 mmol/L (3.5-5.1) L 01/19/23 04:13 Chloride 108 mmol/L (98-107) H 01/19/23 04:13 Carbon Dioxide 27.0 mmol/L (21.0-32.0) 01/19/23 04:13 Anion Gap 7 (5-15) 01/19/23 04:13 BUN 8 mg/dL (7-18) 01/19/23 04:13 Creatinine 0.68 mg/dL (0.70-1.30) L 01/19/23 04:13 Est GFR (MDRD) Af Amer 185 mL/min (>60) 01/19/23 04:13 Est GFR (MDRD) Non-Af 153 mL/min (>60) 01/19/23 04:13 BUN/Creatinine Ratio 11.8 RATIO (10-20) 01/19/23 04:13 Glucose 97 mg/dL (74-106) 01/19/23 04:13 Vancomycin Trough 16.5 ug/mL (5.0-15.0) H 01/19/23 10:35 Microbiology: Microbiology 01/18/23 14:58 Sputum, Expectorated/Coughed Respiratory Culture - Preliminary Appears to be normal respiratory deo. Further studies to follow. 01/16/23 15:15 Sputum, Expectorated/Coughed Gram Stain - Final 01/16/23 15:15 Sputum, Expectorated/Coughed Respiratory Culture - Final Mixed normal respiratory deo. No Streptococcus pneumoniae, beta-hemolytic Streptococcus or Staphylococcus aureus isolated. 01/16/23 05:30 Blood Culture (Wb) - Anticubital Left Blood Culture - Preliminary No growth in 48 hours. 01/16/23 05:25 Blood Culture (Wb) - Anticubital Right Blood Culture - Preliminary No growth in 48 hours. 01/16/23 06:07 Mucosa - Nose Respiratory Panel (PCR) - Final 01/16/23 06:10 Urine, Clean Catch Legionella Antigen - Final 01/16/23 06:10 Urine, Clean Catch Streptococcus pneumoniae Antigen (M - Final 01/16/23 05:25 Nasal Secretion SARS-CoV-2 & FLU Antigen (Rapid) - Final Goal Trough: 15-20 mcg/mL Pharmacy Plan for Drug Dosing: VANCOMYCIN LEVEL RECEIVED Current Vancomycin Dose: 1250mg IV Q8h Number of Doses Received: 9 Vancomycin Level: 16.5 Hours Since Last Dose: 7hr Renal Function: 0.68/ > 100mL/min Renal Function Trend: stable Lab/Micro: pending Vancomycin Plan/Comments: Patient had a trough drawn which resulted in a value of 16.5 (Goal 15-20). Will continue current dose and recheck a trough in 2 days. Pending Level: 01/21/23 @1030 Pharmacy Service will continue to monitor and adjust dosing as required. 01/19/23 1144 <Electronically signed by Baylee Ornelas > Date _ Baylee Ornelas 01/19/23 1222 <Electronically signed by Amado harrison MD> Cosigner Signature (if applicable): Date Amado Mejias MD CC: ~ Signed [facility] Work Phone: 1(745) 233-738502-28-[address] Ty [facility] January 18, 2023 5:39pm Note Date/Time January 18, 2023 12:32pm [facility] Medical Records Department [address] [place] [address] Progress Note - Hospitalist 01/18/23 1232 MR#: [id number] Acct: [id number] Name: RYOCE YUSUF Rep #:[id number] : 2000 22 From: Lilia Ty MD PCP: Dr. Rachael Verdin MD Status:ADM I N Location: [place] [address] Reason for Visit Reason for Visit: Diagnoses Pneumonia, unspecified organism (01/16/23) Chest pain, unspecified (01/16/23) Abnormal findings on diagnostic imaging of other specified body structures (01/16/23) Subjective Subjective Still has the pain on palpation with inspiration on right lateral chest wall, denies problems with his breathing, still slight cough but minimal sputum production Objective Data Objective Data Vital Signs: Vital Signs Temp Pulse Resp BP Pulse Ox O2 Del Method 98.0 F 79 16 127/69 H 97 Room Air 01/18/23 09:17 01/18/23 09:17 01/18/23 09:17 01/18/23 09:17 01/18/23 09:17 01/18/23 09:32 Oxygen Delivery Method Room Air Weight: 77.8 kg Body Mass Index (BMI) 26.9 Intake & Output: Intake and Output for Last 24 Hours 01/16/23 01/17/23 01/18/23 23:59 23:59 23:59 Intake Total 2759.80 / 2759.80 5667 / 5967 687 / 687 Balance 2759.80 / 2759.80 56 / 5967 687 / 687 Lab / Micro Data Result Diagrams: 01/18/23 03:59 01/18/23 03:59 Labs: Laboratory Results - last 24 hr 01/18/23 03:59: WBC 7.4, RBC 4.37 L, Hgb 13.4, Hct 40.2, MCV 92.0, MCH 30.7, MCHC 33.3, RDW Std Deviation 44.6 H, RDW Coeff of Starr 13.2, Plt Count 261, MPV 9.5, Immature Gran % (Auto) 0.300, Neut % (Auto) 46.2 L, Lymph % (Auto) 34.5, Stanley % (Auto) 6.1, Eos % (Auto) 12.1 H, Baso % (Auto) 0.8, Absolute Neuts (auto)3.4, Absolute Lymphs (auto) 2.54, Nucleated RBC % 0 01/18/23 03:59: Sodium 142, Potassium 3.5, Chloride 109 H, Carbon Dioxide 27.0, Anion Gap 6, BUN 8, Creatinine 0.66 L, Estim Creat Clear Calc 162.75, Est GFR (MDRD) Af Amer 191, Est GFR (MDRD) Non-Af 157, BUN/Creatinine Ratio 12.1, Glucose 91, Calcium 8.8, Total Bilirubin 0.30, AST 14 L, ALT 17, Alkaline Phosphatase 66, Total Protein 6.7, Albumin 3.6, Globulin 3.1, Albumin/Globulin Ratio 1.2 Micro: Microbiology 01/16/23 15:15 Sputum, Expectorated/Coughed Gram Stain - Final 01/16/23 15:15 Sputum, Expectorated/Coughed Respiratory Culture - Final Mixed normal respiratory deo. No Streptococcus pneumoniae, beta-hemolytic Streptococcus or Staphylococcus aureus isolated. 01/16/23 05:30 Blood Culture (Wb) - Anticubital Left Blood Culture - Preliminary No growth in 48 hours. 01/16/23 05:25 Blood Culture (Wb) - Anticubital Right Blood Culture - Preliminary No growth in 48 hours. 01/16/23 06:07 Mucosa - Nose Respiratory Panel (PCR) - Final 01/16/23 06:10 Urine, Clean Catch Legionella Antigen - Final 01/16/23 06:10 Urine, Clean Catch Streptococcus pneumoniae Antigen (M - Final 01/16/23 05:25 Nasal Secretion SARS-CoV-2 & FLU Antigen (Rapid) - Final Physical Exam Narrative General: Alert, oriented, no apparent distress HEENT: Atraumatic, normocephalic Eyes: Anicteric, normal conjunctiva, extraocular movements grossly intact Neck: Supple Respiratory: No wheezes or rhonchi, normal respiratory effort Cardiovascular: Regular rate and rhythm GI: Soft, nontender, nondistended Extremities: No edema Musculoskeletal: Moving all extremities Neuro: No overt focal neurological deficits Skin: No rashes appreciated Psych: Cooperative Assessment & Plan Assessment/Plan (1) Pneumonia: PLAN: Plan #Right-sided lung mass seen on CT -CTA showed multifocal patchy masslike consolidation ranging from 4 to 1.5 cm within the upper lung zones -Is on TB precautions and has been on Vanco and Zosyn and will narrow to Vanco and Unasyn -Blood cultures -ID and pulmonology consulted -Maintaining sats on room air -Spoke with pulmonology, patient refused bron. Will need ambulatory pulse ox to assess for O2 prior to DC -Follow cultures, AFB sputum, fungal sputum -Outpatient complete PFT and repeat CT without contrast scan in 4 to 6 weeks -Recommend cessation of vaping -01/18: We will give topical gel to aid in pain of chest wall, has acid-fast, Aspergillus, histoplasma pending, remains on antibiotics, pulm and ID following #DVT ppx: Ambulatory, low risk Lilia Ty MD Time spent in the patient's overall evaluation,decision-making process, review of diagnostic data, adjustment of management, discussion with other providers, nursing nursing and ancillary staff involved in patient's care documentation, 26minutes Charges/Coding Visit Charges Inpatient E&M: 39054 Subs Hosp L2 01/18/23 9918 <Electronically signed by Lilia Ty MD> Cosigner Signature (if applicable): CC: ~ Signed [facility] Work Phone: 1(801) 642-864702-28-[address] 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 Rachael Verdin MD Status:ADM I N Location: [place] [address] Assessment & Plan Assessment/Plan (1) Chest pain: (2) Abnormal CT of the chest: PLAN: Plan RECOMMENDATIONS: 1. Okay to DC respiratory isolation if third AFB negative 2. Discontinuation of all vaping products 3. Walking oximetry prior to discharge 4. Antibiotics per infectious disease 5. Outpatient complete PFT and repeat CT without contrast scan in 4 to 6 weeks 6. Potential bronchoscopy if patient is agreeable 7. Continue Toradol for chest pain IMPRESSIONS: 1. Abnormal CT scan Patient with multiple areas of peripheral upper lobe groundglass opacitiesand some areas suggestive of possible cavitation. Viral work-up has been relatively unremarkable. Patient will need to complete TB rule out with 3 negative AFBs. Another will be sent this morning. Ideally, patient would have a bronchoscopy with BAL if this is negative, but patient is not overly agreeable previously. All vape products need to be discontinued immediately. Patient should have a walking oximetry prior to discharge. Outpatient PFT and repeat CTscan in 4 to 6 weeks will likely be needed. If patient is not willing to have abronchoscopy, likely okay to discharge from a pulmonary perspective with follow-up in our office in 2 weeks to arrange for PFT and CT scan. QuantiFERON is currently pending 2. Anxiety/depression/tobacco abuse/protracted course Complicates care, management, recovery and prognosis. Okay to continue with baseline medications. Patient may benefit from referral to behavioral health to help with anxiety and vaping dependence. Subjective Subjective Patient did well overnight. No acute issues were reported. Patient resting comfortably on my evaluation. Objective Data Objective Data Only 2 AFB smears are in the lab at this time. 1 was canceled secondary to lackof specimen. Vital Signs: Vital Signs Temp Pulse Resp BP Pulse Ox O2 Del Method 35.9 C L 76 18 132/76 H 100 Room Air 01/18/23 03:20 01/18/23 03:20 01/18/23 03:20 01/18/23 03:20 01/18/23 03:20 01/18/23 03:20 Oxygen Delivery Method Room Air Weight: 77.8 kg Body Mass Index (BMI) 26.9 Intake & Output: Intake and Output for Last 24 Hours 01/16/23 01/17/23 01/18/23 23:59 23:59 23:59 Intake Total 2759.80 / 2759.80 5667 / 5967 687 / 687 Balance 2759.80 / 2759.80 5667 / 5967 687 / 687 Lab / Micro Data Attestation: I reviewed the patient's lab results. Result Diagrams: 01/18/23 03:59 01/18/23 03:59 Labs: Laboratory Results - last 24 hr 01/17/23 10:11: Vancomycin Trough 18.4 H 01/18/23 03:59: WBC 7.4, RBC 4.37 L, Hgb 13.4, Hct 40.2, MCV 92.0, MCH 30.7, MCHC 33.3, RDW Std Deviation 44.6 H, RDW Coeff of Starr 13.2, Plt Count 261, MPV 9.5, Immature Gran % (Auto) 0.300, Neut % (Auto) 46.2 L, Lymph % (Auto) 34.5, Stanley % (Auto) 6.1, Eos % (Auto) 12.1 H, Baso % (Auto) 0.8, Absolute Neuts (auto)3.4, Absolute Lymphs (auto) 2.54, Nucleated RBC % 0 01/18/23 03:59: Sodium 142, Potassium 3.5, Chloride 109 H, Carbon Dioxide 27.0, Anion Gap 6, BUN 8, Creatinine 0.66 L, Estim Creat Clear Calc 162.75, Est GFR (MDRD) Af Amer 191, Est GFR (MDRD) Non-Af 157, BUN/Creatinine Ratio 12.1, Glucose 91, Calcium 8.8, Total Bilirubin 0.30, AST 14 L, ALT 17, Alkaline Phosphatase 66, Total Protein 6.7, Albumin 3.6, Globulin 3.1, Albumin/Globulin Ratio 1.2 Micro: Microbiology 01/16/23 15:15 Sputum, Expectorated/Coughed Gram Stain - Final 01/16/23 15:15 Sputum, Expectorated/Coughed Respiratory Culture - Preliminary Appears to be normal respiratory deo. Further studies to follow. 01/16/23 06:07 Mucosa - Nose Respiratory Panel (PCR) - Final 01/16/23 06:10 Urine, Clean Catch Legionella Antigen - Final 01/16/23 06:10 Urine, Clean Catch Streptococcus pneumoniae Antigen (M - Final 01/16/23 05:25 Nasal Secretion SARS-CoV-2 & FLU Antigen (Rapid) - Final Physical Exam Const alert, oriented x3 and no apparent distress General Appearance: cooperative and well developed HEENT normocephalic, head/scalp atraumatic and moist oral mucous membranes Eyes PERRL and EOMs intact bilaterally Neck full ROM and no lymphadenopathy Chest Chest Narrative: Pain reproducible on palpation Resp normal respiratory effort and no use of accessory muscles Resp Narrative: Some splinting with deep inhalation Effort and Inspection: able to speak in complete sentences Auscultation: wheezes; Negative for rales or rhonchi Percussion: Negative for dullness Cardio regular rate, regular rhythm, S1 normal heart sound, S2 normal heart sound, no murmurs, no rub and no gallops GI normal to inspection, nondistended, normoactive bowel sounds no CVA tenderness Extremity no clubbing, cyanosis or edema Skin no rashes or lesions noted Skin Narrative: Multiple tattoos noted Neuro oriented x3, CN's II-XII intact bilaterally, moves all extremities and no focal motor deficits Psych cooperative and affect normal Charges/Coding Visit Charges Inpatient E&M: 27379 Subs Hosp L2 01/18/23 1540 <Electronically signed by Kirby Deng MD> Cosigner Signature (if applicable): CC: ~ Signed [facility] Work Phone: 1(279) 752-983002-28-[address] Mejias [facility] January 18, 2023 10:30am Note Date/Time January 18, 2023 10:30am [facility] Medical Records Department [address] [place] [address] Progress Note - Infect Disease 01/18/23 1029 MR#: [id number] Acct: [id number] Name: ROYCE YUSUF Rep #:[id number] : 2000 22 From: Amado hutchison MD PCP: Dr. Rachael Verdin MD Status:ADM I N Location: [place] [address] Physical Exam Narrative Feeling about the same, still some cough, no fever Const alert and no apparent distress Resp normal air movement and clear to auscultation bilaterally Cardio regular rate and regular rhythm GI soft to palpation, non-tender and non-distended Skin no rashes or lesions noted ID ID: Route of nutrition/ use of supplements: [] Nutritional Intake: [] IV Site: [] Walter Catheter: [] Assessment & Plan Assessment/Plan (1) Abnormal CT of the chest: PLAN: Pending aspergillus, histo, and TB quantiferon. Cont vanc/unasyn. If AFB smears are neg, ok to d/c isolation. Will follow 01/18/23 1030 <Electronically signed by Amado Mejias MD> Cosigner Signature (if applicable): CC: ~ Signed [facility] Work Phone: 1(234) 787-249602-27-[address] Ty [facility] January 17, 2023 7:11pm Note Date/Time January 17, 2023 11:19am [facility] Medical Records Department [address] [place] [address] Pharmacokinetic/Renal -Consult 01/17/23 1118 MR#: [id number] Acct: [id number] Name: ROYCE YUSUF Rep #:[id number] 2 : 2000 From: Maxine Taylor PCP: Dr. Rachael Verdin MD Status:ADM I N Y Location: [place] [address] Consult Pharmacy has been consulted to manage selected antiobiotic: Vancomycin Type of Consult: Follow-up Suspected Infection: Pneumonia Labs: Sodium 145 mmol/L (136-145) 01/17/23 06:50 Potassium 3.5 mmol/L (3.5-5.1) 01/17/23 06:50 Chloride 113 mmol/L (98-107) H 01/17/23 06:50 Carbon Dioxide 25.0 mmol/L (21.0-32.0) 01/17/23 06:50 Anion Gap 7 (5-15) 01/17/23 06:50 BUN 8 mg/dL (7-18) 01/17/23 06:50 Creatinine 0.79 mg/dL (0.70-1.30) 01/17/23 06:50 Est GFR (MDRD) Af Amer 156 mL/min (>60) 01/17/23 06:50 Est GFR (MDRD) Non-Af 129 mL/min (>60) 01/17/23 06:50 BUN/Creatinine Ratio 10.2 RATIO (10-20) 01/17/23 06:50 Glucose 103 mg/dL (74-106) 01/17/23 06:50 Vancomycin Trough 18.4 ug/mL (5.0-15.0) H 01/17/23 10:11 Microbiology: Microbiology 01/16/23 15:15 Sputum, Expectorated/Coughed Gram Stain - Preliminary 01/16/23 15:15 Sputum, Expectorated/Coughed Respiratory Culture - Preliminary Appears to be normal respiratory deo. Further studies to follow. 01/16/23 06:07 Mucosa - Nose Respiratory Panel (PCR) - Final 01/16/23 06:10 Urine, Clean Catch Legionella Antigen - Final 01/16/23 06:10 Urine, Clean Catch Streptococcus pneumoniae Antigen (M - Final 01/16/23 05:25 Nasal Secretion SARS-CoV-2 & FLU Antigen (Rapid) - Final Goal Trough: 15-20 mcg/mL Pharmacy Plan for Drug Dosing: VANCOMYCIN LEVEL RECEIVED Current Vancomycin Dose: 1250MG Q8 Number of Doses Received: 3 DOSES BEFORE LEVEL, 1 HUNG AFTER Vancomycin Level: 18.4 MG/DL Hours Since Last Dose: 8 Renal Function: SCR 0.79, CRCL >100 ML/MIN Renal Function Trend: STABLE Lab/Micro: PENDING Vancomycin Plan/Comments: 8 HOUR TROUGH IS WITHIN THERAPEUTIC RANGE, CONTINUE CURRENT DOSING AT THIS TIME AND GET A TROUGH IN 2 DAYS PER POLICY. Pending Level: 01/19/23 @ 1030 Pharmacy Service will continue to monitor and adjust dosing as required. 01/17/23 1119 <Electronically signed by Maxien Taylor > Date _ Maxine Taylor 01/17/23 191 <Electronically signed by Lilia Ty MD> Cosigner Signature (if applicable): Date Lilia Ty MD CC: ~ Signed [facility] Work Phone: 1(290) 411-394302-27-[address] Ty [facility] January 17, 2023 7:11pm Note Date/Time January 17, 2023 9:48am [facility] Medical Records Department [address] [place] [address] Progress Note - Hospitalist 01/17/23 0948 MR#: [id number] Acct: [id number] Name: ROYCE YUSUF Rep #:[id number] 5 : 2000 22 From: Lilia Ty MD PCP: Dr. Rachael Verdin MD Status:ADM I N Location: [place] [address] Reason for Visit Reason for Visit: Diagnoses Pneumonia, unspecified organism (01/16/23) Subjective Subjective Still has some sharp right-sided pain, cough improving and not as productive, denies shortness of breath or other complaints Objective Data Objective Data Vital Signs: Vital Signs Temp Pulse Resp BP Pulse Ox O2 Del Method 97.1 F L 65 16 121/62 H 100 Room Air 01/17/23 09:18 01/17/23 09:18 01/17/23 09:18 01/17/23 09:18 01/17/23 09:18 01/17/23 09:30 Oxygen Delivery Method Room Air Weight: 76.748 kg Body Mass Index (BMI) 26.4 Intake & Output: Intake and Output for Last 24 Hours 01/15/23 01/16/23 01/17/23 23:59 23:59 23:59 Intake Total 2759.80 / 2759.80 1685 / 1685 Balance 2759.80 / 2759.80 1685 / 1685 Lab / Micro Data Result Diagrams: 01/17/23 06:50 01/17/23 06:50 Labs: Laboratory Results - last 24 hr 01/16/23 08:02: MRSA (PCR) Negative 01/17/23 06:50: WBC 8.6, RBC 4.26 L, Hgb 13.0, Hct 38.8 L, MCV 91.1, MCH 30.5, MCHC 33.5, RDW Std Deviation 43.1, RDW Coeff of Starr 13.1, Plt Count 234, MPV 9.2, Immature Gran % (Auto) 0.300, Neut % (Auto) 61.6, Lymph % (Auto) 29.2, Stanley% (Auto) 5.3, Eos % (Auto) 3.1, Baso % (Auto) 0.5, Absolute Neuts (auto) 5.3, Absolute Lymphs (auto) 2.51, Nucleated RBC % 0 01/17/23 06:50: Sodium 145, Potassium 3.5, Chloride 113 H, Carbon Dioxide 25.0, Anion Gap 7, BUN 8, Creatinine 0.79, Estim Creat Clear Calc 135.97, Est GFR (MDRD) Af Amer 156, Est GFR (MDRD) Non-Af 129, BUN/Creatinine Ratio 10.2, Glucose 103, Calcium 8.3 L, Total Bilirubin 0.50, AST 8 L, ALT 13 L, Alkaline Phosphatase 55, Total Protein 6.0 L, Albumin 3.2, Globulin 2.8, Albumin/GlobulinRatio 1.1 Micro: Microbiology 01/16/23 06:07 Mucosa - Nose Respiratory Panel (PCR) - Final 01/16/23 15:15 Sputum, Expectorated/Coughed Gram Stain - Preliminary 01/16/23 06:10 Urine, Clean Catch Legionella Antigen - Final 01/16/23 06:10 Urine, Clean Catch Streptococcus pneumoniae Antigen (M - Final 01/16/23 05:25 Nasal Secretion SARS-CoV-2 & FLU Antigen (Rapid) - Final Physical Exam Narrative General: Alert, oriented, no apparent distress HEENT: Atraumatic, normocephalic Eyes: Anicteric, normal conjunctiva, extraocular movements grossly intact Neck: Supple Respiratory: No wheezes or rhonchi, normal respiratory effort Cardiovascular: Regular rate and rhythm GI: Soft, nontender, nondistended Extremities: No edema Musculoskeletal: Moving all extremities Neuro: No overt focal neurological deficits Skin: No rashes appreciated Psych: Cooperative Assessment & Plan Assessment/Plan (1) Pneumonia: PLAN: Plan #Right-sided lung mass seen on CT -CTA showed multifocal patchy masslike consolidation ranging from 4 to 1.5 cm within the upper lung zones -Is on TB precautions and has been on Vanco and Zosyn and will narrow to Vanco and Unasyn -Blood cultures -ID and pulmonology consulted -Maintaining sats on room air -Spoke with pulmonology, patient refused bronc. Will need ambulatory pulse ox to assess for O2 prior to DC -Follow cultures, AFB sputum, fungal sputum -Outpatient complete PFT and repeat CT without contrast scan in 4 to 6 weeks -Recommend cessation of vaping #DVT ppx: Ambulatory, low risk Lilia Ty MD Time spent in the patient's overall evaluation,decision-making process, review of diagnostic data, adjustment of management, discussion with other providers, nursing nursing and ancillary staff involved in patient's care documentation, 26minutes Charges/Coding Visit Charges Inpatient E&M: 85215 Subs Hosp L2 01/17/231910 <Electronically signed by Lilia Ty MD> Cosigner Signature (if applicable): CC: ~ Signed [facility] Work Phone: 1(900) 902-681202-27-[address] Deng [facility] January 17, 2023 3:46pm Note Date/Time January 17, 2023 12:57pm [facility] Medical Records Department [address] [place] [address] Consultation - S Iron Worker 01/17/23 1242 MR#: [id number] Acct: [id number] Name: ROYCE YUSUF Rep #:[id number] 5 : 2000 From: Kirby Deng MD PCP: Dr. Rachael Verdin MD Status:ADM I N Location: [place] [address] Assessment & Plan Assessment/Plan (1) Chest pain: (2) Abnormal CT of the chest: PLAN: Plan RECOMMENDATIONS: 1. Continue rule out for TB 2. Discontinuation of all vaping products 3. Walking oximetry prior to discharge 4. Discontinue antibiotics if culture negative 5. Outpatient complete PFT and repeat CT without contrast scan in 4 to 6 weeks 6. Potential bronchoscopy 7. Continue Toradol for chest pain IMPRESSIONS: 1. Abnormal CT scan Patient with multiple areas of peripheral upper lobe groundglass opacitiesand some areas suggestive of possible cavitation. Viral work-up has been relatively unremarkable. Hepatitis panel is suggestive of previous hep B immunization without active infection. TB would be a consideration, especially given history of hemoptysis in the past. This should be ruled out. Patient currently on empiric antibiotics pending blood cultures. Doubt embolic pneumonia given upper lobe predominance, but it is peripherally located. Clinical suspicion for an element of pleurisy leading to reported chest pain. Another concern would be lipoid pneumonia associated with vaping products. These should be discontinued immediately. Did discuss with the patient about possibly doing a bronchoscopy with BAL, but he was very resistant at this time to proceed in this manner. Patient will need a walking oximetry prior to discharge. Antibiotics can likely be discontinued once cultures are negative. Patient will need an outpatient complete PFT and CT in 4 to 6 weeks. Patient also seem to be very concerned about cessation of vaping. 2. Anxiety/depression/tobacco abuse/protracted course Complicates care, management, recovery and prognosis. Okay to continue with baseline medications. Patient may benefit from referral to behavioral health to help with anxiety and vaping dependence. HPI Consult Data Date of Consult: 01/17/23 HPI Narrative Reason for Consultation: Abnormal CT HPI Narrative: ROYCE YUSUF is a 22 M, with past medical history listed below, who presents to [facility] on 01/16/2023 secondary to ongoing and progressive right-sided chest pain that is been constant for the last 2 weeks. Patient reportedly has had multiple episodes of URI since . Patient states that he had a coughing episode leading to popping in his chest approximately 2 weeks ago. Patient states that initially he was able to make this better by applying pressure to the area. However, on the night prior to presentation patient felt a popping sensation on the right side of his chest after a severe cough. Given progression of pain, patient came in for an evaluation. Patient is not reporting any palpitations. Patient did have a sore throat and a cough productive of thick yellow sputum initially. This has progressed to a dry cough. Patient denies any nausea or vomiting. No fever or chills have been reported. Patient does occasionally sweat at night, but attributes this to sleeping in sweatpants. Patient has been treated with Augmentin in the past with little to no improvement. In the ER, patient was afebrile, normotensive and saturating well on room air. Laboratory work-up showed a white blood cell count of 10.8, hemoglobin of 13.6 and platelets of 282. Chemistry showed an elevated bicarbonate of 29 with a creatinine of 0.84 and a glucose of 112. Liver studies were unremarkable. Chest x-ray showed a masslike focal right upper lobe infiltrate concerning for pneumonia. Patient subsequently had a CT of the chest showing multifocal patchygroundglass opacities measuring 4 mm to 1.5 cm with upper lobe predominance. There is some concern for cavitary pneumonia or septic emboli. Patient was given DuoNebs and naproxen. Viral work-up was unremarkable. Patient did test positive for THC. Given infectious concerns, patient was placed in TB isolationand admitted to the floor for further evaluation. Since being admitted to the hospital, patient overall feels subjectively unchanged. Patient continues to have a periodic cough. Patient is not reporting any significant sputum production. Patient does state that the cough significantly worsens his chest pain. Patient states he does not smoke tobacco on a regular basis. However, patient does vape frequently and states he has done this for years. Patient does report he recently changed his vape of choice to a nicotine salt. Patient has had episodes of hemoptysis in the past, but states these have resolved recently. Patient has never had a pulmonary function test. Patient denies any incarceration or foreign travel. 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 Patient does not report any exposure to foreign citizens. Patient has not had a TB test that he is aware of. Patient has not reported any chest trauma. Review of systems otherwise negative from a constitutional, HEENT, respiratory, cardiovascular, GI, genitourinary, musculoskeletal, skin, neurologic, psychiatric and hematologic system unless stated above. PFSH Medical History Anxiety and depression Vaping nicotine dependence, tobacco product Medical History no medical history Home Medications sertraline 25 mg tablet (Zoloft) 50 mg PO QHS anxiety and depression 01/04/23 [History Last Taken Unknown] amoxicillin 875 mg-potassium clavulanate 125 mg tablet 1 tab PO BID 01/16/23 [History Last Taken Unknown] Allergy/AdvReac Type Severity Reaction Status Date / Time azithromycin Allergy Rash Verified 01/16/23 02:18 iodine Allergy Rash Verified 01/16/23 02:18 Family History no significant family his no significant family history Surgical History History of tonsillectomy and adenoidectomy Surgical History no surgical history Social History household members: other details: Lives with his parents. Smoking Status: Current every day smoker tobacco type: e-cigarettes Electronic Cigarette Use: with nicotine alcohol intake: current alcohol intake frequency: holidays/special occasions only substance use type: does not use ROS ROS Narrative See HPI Physical Exam Const alert, oriented x3 and no apparent distress General Appearance: cooperative and well developed HEENT normocephalic, head/scalp atraumatic and moist oral mucous membranes Eyes PERRL and EOMs intact bilaterally Neck full ROM and no lymphadenopathy Chest Chest Narrative: Pain reproducible on palpation Resp normal respiratory effort and no use of accessory muscles Resp Narrative: Some splinting with deep inhalation Effort and Inspection: able to speak in complete sentences Auscultation: wheezes; Negative for rales or rhonchi Percussion: Negative for dullness Cardio regular rate, regular rhythm, S1 normal heart sound, S2 normal heart sound, no murmurs, no rub and no gallops GI normal to inspection, nondistended, normoactive bowel sounds no CVA tenderness Extremity no clubbing, cyanosis or edema Skin no rashes or lesions noted Skin Narrative: Multiple tattoos noted Neuro oriented x3, CN's II-XII intact bilaterally, moves all extremities and no focal motor deficits Psych cooperative and affect normal Medical Records Data Attestation: I reviewed the patient's medical records Lab / Micro Data Attestation: I reviewed the patient's lab results. Result Diagrams: 01/17/23 06:50 01/17/23 06:50 Labs: Laboratory Results - last 24 hr 01/16/23 08:02: MRSA (PCR) Negative 01/17/23 06:50: WBC 8.6, RBC 4.26 L, Hgb 13.0, Hct 38.8 L, MCV 91.1, MCH 30.5, MCHC 33.5, RDW Std Deviation 43.1, RDW Coeff of Starr 13.1, Plt Count 234, MPV 9.2, Immature Gran % (Auto) 0.300, Neut % (Auto) 61.6, Lymph % (Auto) 29.2, Stanley% (Auto) 5.3, Eos % (Auto) 3.1, Baso % (Auto) 0.5, Absolute Neuts (auto) 5.3, Absolute Lymphs (auto) 2.51, Nucleated RBC % 0 01/17/23 06:50: Sodium 145, Potassium 3.5, Chloride 113 H, Carbon Dioxide 25.0, Anion Gap 7, BUN 8, Creatinine 0.79, Estim Creat Clear Calc 135.97, Est GFR (MDRD) Af Amer 156, Est GFR (MDRD) Non-Af 129, BUN/Creatinine Ratio 10.2, Glucose 103, Calcium 8.3 L, Total Bilirubin 0.50, AST 8 L, ALT 13 L, Alkaline Phosphatase 55, Total Protein 6.0 L, Albumin 3.2, Globulin 2.8, Albumin/GlobulinRatio 1.1 01/17/23 10:11: Vancomycin Trough 18.4 H Micro: Microbiology 01/16/23 15:15 Sputum, Expectorated/Coughed Gram Stain - Preliminary 01/16/23 15:15 Sputum, Expectorated/Coughed Respiratory Culture - Preliminary Appears to be normal respiratory deo. Further studies to follow. 01/16/23 06:07 Mucosa - Nose Respiratory Panel (PCR) - Final 01/16/23 06:10 Urine, Clean Catch Legionella Antigen - Final 01/16/23 06:10 Urine, Clean Catch Streptococcus pneumoniae Antigen (M - Final Charges/Coding Visit Charges Inpatient E&M: 07185 Init Hosp L3 01/17/23 1546 <Electronically signed by Kirby Deng MD> Cosigner Signature (if applicable): CC: Dr. Camryn Palma MD; Dr. Rachael Verdin MD; Dr. Earnest Nelson DO; Dr. Ivon Kim DO; Dr. Amado Mejias MD~ Signed [facility] Work Phone: [phone] Mejias [facility] January 17, 2023 2:41pm Note Date/Time January 17, 2023 2:41pm [facility] Medical Records Department [address] [place] [address] Consultation - Infectious Dx 01/17/23 1435 MR#: [id number] Acct: [id number] Name: ROYCE YUSUF Rep #:[id number] 5 : 2000 22 From: Amado hutchison MD PCP: Dr. Rachael Verdin MD Status:ADM I N Location: [place] [address] Assessment & Plan Assessment/Plan (1) Abnormal CT of the chest: PLAN: Will order another AFB sputum and fungal sputum cx. Will check aspergillus, histo, and TB quantiferon. Narrow abx to vanc/unasyn. Bcx pending. Will follow, thank you HPI Consult Data Date of Consult: 01/17/23 HPI Narrative Reason for Consultation: cavitation HPI Narrative: ROYCE YUSUF, is a 22 M with minimal PMH, presented 01/16 with several weeks severe R sided pleuritic chest pain, some cough. No fever or chills. Has lost 8lbs unintentionally in past 2 months. No hemoptysis. No known TB exposure, noforeign travel, no prior PPD. 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 Came to ED, CT showed cavitary lesion. Started on vanc/zosyn. Does vape. Full ROS performed and neg except as noted above. PFSH Medical History Anxiety and depression Vaping nicotine dependence, tobacco product Medical History no medical history Home Medications sertraline 25 mg tablet (Zoloft) 50 mg PO QHS anxiety and depression 01/04/23 [History Last Taken Unknown] amoxicillin 875 mg-potassium clavulanate 125 mg tablet 1 tab PO BID 01/16/23 [History Last Taken Unknown] Allergy/AdvReac Type Severity Reaction Status Date / Time azithromycin Allergy Rash Verified 01/16/23 02:18 iodine Allergy Rash Verified 01/16/23 02:18 Family History no significant family his Surgical History History of tonsillectomy and adenoidectomy Surgical History no surgical history Social History household members: other details: Lives with his parents. Smoking Status: Current every day smoker tobacco type: e-cigarettes Electronic Cigarette Use: with nicotine alcohol intake: current alcohol intake frequency: holidays/special occasions only substance use type: does not use Physical Exam Const alert, oriented x3 and no apparent distress General Appearance: cooperative HEENT normocephalic and head/scalp atraumatic Eyes PERRL and EOMs intact bilaterally Neck supple and No nodes Resp normal air movement and clear to auscultation bilaterally Cardio regular rate and regular rhythm GI soft to palpation, non-tender and non-distended Extremity General Extremity: Negative for edema Skin no rashes or lesions noted Neuro CN's II-XII intact bilaterally Lab / Micro Data Attestation: I reviewed the patient's lab results. Result Diagrams: 01/17/23 06:50 01/17/23 06:50 Labs: Laboratory Results - last 24 hr 01/17/23 06:50: WBC 8.6, RBC 4.26 L, Hgb 13.0, Hct 38.8 L, MCV 91.1, MCH 30.5, MCHC 33.5, RDW Std Deviation 43.1, RDW Coeff of Starr 13.1, Plt Count 234, MPV 9.2, Immature Gran % (Auto) 0.300, Neut % (Auto) 61.6, Lymph % (Auto) 29.2, Stanley% (Auto) 5.3, Eos % (Auto) 3.1, Baso % (Auto) 0.5, Absolute Neuts (auto) 5.3, Absolute Lymphs (auto) 2.51, Nucleated RBC % 0 01/17/23 06:50: Sodium 145, Potassium 3.5, Chloride 113 H, Carbon Dioxide 25.0, Anion Gap 7, BUN 8, Creatinine 0.79, Estim Creat Clear Calc 135.97, Est GFR (MDRD) Af Amer 156, Est GFR (MDRD) Non-Af 129, BUN/Creatinine Ratio 10.2, Glucose 103, Calcium 8.3 L, Total Bilirubin 0.50, AST 8 L, ALT 13 L, Alkaline Phosphatase 55, Total Protein 6.0 L, Albumin 3.2, Globulin 2.8, Albumin/GlobulinRatio 1.1 01/17/23 10:11: Vancomycin Trough 18.4 H Micro: Microbiology 01/16/23 15:15 Sputum, Expectorated/Coughed Gram Stain - Final 01/16/23 15:15 Sputum, Expectorated/Coughed Respiratory Culture - Preliminary Appears to be normal respiratory deo. Further studies to follow. 01/16/23 06:07 Mucosa - Nose Respiratory Panel (PCR) - Final 01/17/23 1441 <Electronically signed by Amado Mejias MD> Cosigner Signature (if applicable): CC: Dr. Camryn Palma MD; Dr. Rachael Verdin MD; Dr. Earnest Nelson DO; Dr. Ivon Kim DO; Dr. Amado Mejias MD~ Signed [facility] Work Phone: [phone]) 229-386502-26-[address] Palma [facility] January 16, 2023 8:09pm Note Date/Time January 16, 2023 2:34pm [facility] Medical Records Department [address] [place] [address] Pharmacokinetic/Renal -Consult 01/16/23 1433 MR#: [id number] Acct: [id number] Name: ROYCE YUSUF Rep #:[id number] 5 : 2000 From: Misael [facility] PCP: Dr. Rachael Verdin MD Status:ADM I N Y Location: [place] [address] Consult Pharmacy has been consulted to manage selected antiobiotic: Vancomycin Type of Consult: New start Suspected Infection: Pneumonia Labs: Sodium 139 mmol/L (136-145) 01/16/23 05:30 Potassium 4.5 mmol/L (3.5-5.1) 01/16/23 05:30 Chloride 106 mmol/L (98-107) 01/16/23 05:30 Carbon Dioxide 29.0 mmol/L (21.0-32.0) 01/16/23 05:30 Anion Gap 4 (5-15) L 01/16/23 05:30 BUN 18 mg/dL (7-18) 01/16/23 05:30 Creatinine 0.84 mg/dL (0.70-1.30) 01/16/23 05:30 Est GFR (MDRD) Af Amer 144 mL/min (>60) 01/16/23 05:30 Est GFR (MDRD) Non-Af 119 mL/min (>60) 01/16/23 05:30 BUN/Creatinine Ratio 21.4 RATIO (10-20) H 01/16/23 05:30 Glucose 112 mg/dL (74-106) H 01/16/23 05:30 Microbiology: Microbiology 01/16/23 06:10 Urine, Clean Catch Legionella Antigen - Final 01/16/23 06:10 Urine, Clean Catch Streptococcus pneumoniae Antigen (M - Final 01/16/23 05:25 Nasal Secretion SARS-CoV-2 & FLU Antigen (Rapid) - Final Goal Trough: 15-20 mcg/mL Pharmacy Plan for Drug Dosing: NEW START IV VANCOMYCIN Consulting Physician: Dr. Palma Indication: Pneumonia Goal Trough: 15-20 SrCr: 0.84 CrCl: 128 mls/min Comments: pt received a 2000mg x1 loading dose on 01/16/23 at 1115 Vancomycin Dose: based on pts weight and renal function, recommend an initial dose of 1250mg q8h. trough prior to the 4th total dose. Note: dose calculated using clinical pharmacology. Pending Level: 01/17/23 at 1030 Pharmacy Service will continue to monitor and adjust dosing as required. Follow-Up Labs: Trough Vancomycin - 01/17/23 at 1030 01/16/23 1434 <Electronically signed by Misael Arechiga [facility]> Date _ [facility] 01/16/232008 <Electronically signed by Camryn brown MD> Cosigner Signature (if applicable): Date Camryn Palma MD CC: ~ Signed [facility] Work Phone: 1(853) 322-974302-26-[address] Muñoz [facility] January 16, 2023 8:24am Note Date/Time January 16, 2023 2:57am [facility] Medical Records Department [address] [place] [address] Emergency Department Summary 01/16/23 MR#: [id number] Acct: [id number] Name: ROYCE YUSUF Rep #:[id number] 8 : 2000 22 From: Ryan Esquivel PCP: Dr. Rachael Verdin MD Status:ADM I N Location: [place] [address] HPI History of Present Illness Chief Complaint: Chest Other Informant: patient Onset/Context/Timing Onset: Weeks (2) Context: Sudden Onset Timing: Continuous Quality: Popping sensation Location: Right chest Worsened by: Coughing Relieved by: Rest Narrative Narrative: CoughPresents with right-sided chest pain that has been constant for the past 2 weeks. Patient states it started suddenly 2 weeks ago and episode. Patient states he felt some popping in his chest at that time. Patient states that he had another coughing episode tonight and felt the same popping sensation in the right side of his chest. Patient states his pain is worse with coughing. Patient states his pain is better with resting in a comfortable position. Patient denies any shortness of breath. Patient denies any palpitations. Patient does admit to a recent sore throat. Patient denies any fevers or chills. Patient denies any nausea or vomiting. PFSH PFSH Medical History Anxiety and depression Tobacco use Medical History no medical history no medical history Home Medications sertraline 25 mg tablet (Zoloft) 25 mg PO DAILY 01/04/23 [History Last Taken Unknown] amoxicillin 875 mg-potassium clavulanate 125 mg tablet 1 tab PO BID 01/16/23 [History Last Taken Unknown] Allergy/AdvReac Type Severity Reaction Status Date / Time azithromycin Allergy Rash Verified 01/16/23 02:18 iodine Allergy Rash Verified 01/16/23 02:18 Surgical History no surgical history no surgical history Social History Smoking Status: Current every day smoker tobacco type: e-cigarettes ROS ROS ED Constitutional Constitutional ED: Denies chills or fever(s) Eyes Eyes: Denies blurry vision or change in vision ENT ENT ED: Reports sore throat; Denies rhinorrhea Cardiovascular Cardiovascular: Reports chest pain; Denies palpitations Respiratory/Chest Respiratory/Chest: Reports cough; Denies dyspnea Gastrointestinal Gastrointestinal: Denies nausea or vomiting Genitourinary Genitourinary ED: Denies dysuria or hematuria Musculoskeletal Musculoskeletal: Denies back pain or neck pain Integumentary Denies abscess or rash Neurologic Neurologic: Denies headache(s) or weakness Allergic/Immunologic Allergic/Immunologic ED: Denies mouth swelling or urticaria EXAM Physical Exam Const Vital Signs: 01/16/23 02:14 01/16/23 02:18 01/16/23 05:23 Temperature 98.6 F Temperature Source Temporal Pulse Rate 67 70 Respiratory Rate 18 16 Respiratory Pattern Normal Blood Pressure 125/64 H Blood Pressure Mean 84 Pulse Ox 99 Oxygen Delivery Method Room Air 01/16/23 05:19 Temperature Temperature Source Pulse Rate 70 Respiratory Rate 15 Respiratory Pattern Blood Pressure 129/64 H Blood Pressure Mean 85 Pulse Ox 96 Oxygen Delivery Method Room Air Positive well nourished and well developed General Appearance ED: well developed HEENT Reports moist mucous membranes Neck supple and no JVD Resp normal respiratory effort and clear to auscultation bilaterally Cardio regular rate, regular rhythm and no murmurs GI normal to inspection, nondistended, normoactive bowel sounds and non-tender Palpation: soft Extremity normal to inspection General Extremety ED: Negative for edema or tenderness General Extremity: Negative for edema Neuro oriented x3, CN's II-XII intact bilaterally and no sensory deficits noted Sensorium / Orientation: alert Motor Exam: strength 5/5 throughout Psych mental status grossly normal Skin no rashes or lesions noted MDM MDM MDM Narrative Medical decision making narrative: Differential diagnosis includes pneumothorax, pneumonia, and musculoskeletal chest pain. Chest x-ray will be obtained to assess for pneumonia and pneumothorax. Lab Data Attestation: I reviewed the patient's lab results. Lab results narrative: CBC was reviewed and was within normal limits. Comprehensive metabolic profile was reviewed and was within normal limits. COVID-19 rapid antigen was reviewed and was negative. Influenza A and influenza B rapid antigens were reviewed and were negative. Labs: Laboratory Results - last 24 hr 01/16/23 01/16/23 05:30 05:30 WBC 10.8 RBC 4.56 L Hgb 13.6 Hct 41.9 MCV 91.9 MCH 29.8 MCHC 32.5 RDW Std Deviation 42.9 RDW Coeff of Starr 12.8 Plt Count 282 MPV 9.5 Immature Gran % (Auto) 0.200 Neut % (Auto) 71.1 H Lymph % (Auto) 14.9 L Stanley % (Auto) 2.4 Eos % (Auto) 10.8 H Baso % (Auto) 0.6 Absolute Neuts (auto) 7.7 Absolute Lymphs (auto) 1.61 Nucleated RBC % 0 Sodium 139 Potassium 4.5 Chloride 106 Carbon Dioxide 29.0 Anion Gap 4 L BUN 18 Creatinine 0.84 Estim Creat Clear Calc 127.87 Est GFR (MDRD) Af Amer 144 Est GFR (MDRD) Non-Af 119 BUN/Creatinine Ratio 21.4 H Glucose 112 H Calcium 9.5 Total Bilirubin 0.20 AST 13 L ALT 16 Alkaline Phosphatase 80 Total Protein 7.0 Albumin 3.9 Globulin 3.1 Albumin/Globulin Ratio 1.3 Radiography Chest X-Ray - ED: 2 View, Read by ED Physician, Read by Radiologist and Right Infiltrate Diagnostic Testing: Clinical Impression(s) from Imaging Studies Chest X-Ray 01/16/23 02:57 IMPRESSION: Focal masslike density right upper lobe may have a subtle lucent center which most likely represents pneumonia. There is a trace right effusion. Given the question of possible cavitation in right effusion recommend consideration for CT scan of the chest Electronically Signed: Ginger Harris MD at 3:21 EST , Chest CTA 01/16/23 03:23 IMPRESSION: Multifocal patchy masslike consolidation ranging in size to 4 to 1.5 cm within the upper lung zones. See image #52 series 601. Some with cavitation. The differential includes the possibility of a post primary tuberculous pneumonia versus the possibility of cavitary pneumonia. Potentially covid could have a cavitary appearance but typically the viral pneumonia is not isolated to the upper lung zones.. The differential include the possibility of septic emboli although thought to BE less likely given the primarily upper lung predominance. Electronically Signed: Ginger Harris MD at 5:09 EST Reading Location ID and State: [id number] / [place] Tel , Service support , ADDENDUM: 01/16/23 0520 IMPRESSION: Multifocal patchy masslike consolidation ranging in size to 4 to 1.5 cm within the upper lung zones. See image #52 series 601. Some with cavitation. The differential includes the possibility of a post primary tuberculous pneumonia versus the possibility of cavitary pneumonia. Potentially covid could have a cavitary appearance but typically the viral pneumonia is not isolated to the upper lung zones.. The differential include the possibility of septic emboli although thought to BE less likely given the primarily upper lung predominance. N.B. : The above Results were Read Back by Ginger Harris MD to Ryan Muñoz DO, and understanding confirmed on 01/16/2023 05:13:44 (ET). Electronically Signed: Ginger Harris MD at 5:09 EST , PA and lateral chest x-ray was obtained. There are 2 views. On my independent interpretation, there is a questionable infiltrate in the right upper lobe. Radiologist also interpreted the x-ray and noted question of a possible cavitation in the density which would likely represent pneumonia. There is alsotrace right pleural effusion. Radiologist recommended CT scan of the chest. CTA of the chest was obtained. There are multifocal patchy masslike consolidations in the upper lung zones bilaterally. There are some with cavitation. There is no evidence of pulmonary embolus. This was interpreted bythe radiologist and was also independently reviewed by myself. Treatment and Re-Evaluation Narrative: Patient was given a DuoNeb aerosol here. Patient was given a dose of Naprosyn. Since patient is allergic to iodine, patient was given Benadryl and Solu-Medrol prior to obtaining the CT scan. On further questioning, patient states he has been coughing up occasional yellow sputum. Patient denies any hemoptysis or blood-tinged sputum. Patient denies any fevers or chills. Patient denies any exposure to tuberculosis. Because of the question for the cavitary lesions, further lab work was obtained. CBC was obtained to assess for leukocytosis and anemia. Comprehensive metabolic profile was obtained to assess for hepatic function, renal function, and electrolyte abnormality. Blood cultures were obtained. Sputum culture was ordered. COVID-19 rapid antigen will be obtained to assess for COVID infection. Influenza A and influenza B rapid antigens were will be obtained to assess for influenza infection. Patient was started on Levaquin. The case was discussed with the hospitalist. She will admit the patient to her service. Patient understands and is agreeable with the plan. All questions were answered. Discharge Plan Dx/Rx/DC Orders Clinical Impression: Pneumonia, Chest pain Disposition Disposition: Acute Care Hospital [facility] What to do if you have Problems For any increased pain, shortness of breath, bleeding, nausea or vomiting, chestpain, or any unexpected problems, contact your Primary Care Provider. Call [facility] ([phone]) or report to the closest Emergency Room. Call 911 if necessary. 01/16/23823 <Electronically signed by Ryan Muñoz DO> Cosigner Signature (if applicable): CC: Dr. Rachael Verdin MD ~ Signed [facility] Work Phone: 1(223) 397-595602-26-[address] Kim [facility] January 16, 2023 7:22am Note Date/Time January 16, 2023 7:22am [facility] Medical Records Department [address] [place] [address] Progress Note - Hospitalist 01/16/23716 MR#: [id number] Acct: [id number] Name: ROYCE YUSUF Rep #:[id number] : 2000 From: Ivon Kim DO PCP: Dr. Rachael Verdin MD Status:ADM I N Location: [place] [address] Hospitalist Note 22-year-old white male who presented to the emergency department with persistentcoughing and atypical chest pain. This has been ongoing for approximately 2 to 3 weeks prior to presentation and had sinus congestion and pressure as well as facial discomfort in the addition to his cough. He was seen in the urgent care on 01/04/2023 and prescribed with Augmentin with recommended reevaluation in 7 to10 days if no improvement or worsening of symptoms. He presents emergency department with persistent ongoing cough and constant right-sided chest discomfort that had not abated he had a coughing episode the evening prior at which time he had a sensation of popping during a coughing fit on the right sideof his chest and his chest discomfort worsened at that time. Pain seems to be pleuritic in nature. He had a concurrent sore throat and evaluation as well. Patient denied any drug use other than cannabis on presentation. He is a monogamous relationship with his girlfriend. Vital signs were overall stable and fairly unremarkable on presentation. CTA of his chest was performed and showed a multifocal patchy masslike consolidation ranging from 4 to 1.5 cm within the upper lung zones demonstrating some cavitation. Patient was placed IV vancomycin and Zosyn were ordered. Pulmonary consultation as well as ID consultation with airborne precautions to the concerns for TB were initiated. Blood cultures have been obtained. COVID/flu testing was negative. Hepatitis and HIV studies were ordered. Oxygen saturations have been 96 to 99% on room air. Pulmonary medicine has been consulted. ID has been consulted. 01/16/23721 <Electronically signed by Ivon Kim DO> Cosigner Signature (if applicable): CC: ~ Signed [facility] Work Phone: 1(450) 947-282202-26-2023 History and physical note Author Dr. Palma [facility] January 16, 2023 6:15am Note Date/Time January 16, 2023 5:57am [facility] Medical Records Department [address] [place] [address] History & Physical Exam 01/16/23 0553 MR#: [id number] Acct: [id number] Name: ROYCE YUSFU Rep #:[id number] : 2000 From: Camryn Palma MD PCP: Dr. Rachael Verdin MD Status:REG E R Location: ED HPI - General General Date of Admission: 01/16/23 Date of Service: 01/16/23 Chief Complaint: Cough, persistent, atypical chest popping with coughing fits. HPI Narrative The patient is a 22 y/o M w/ PMHx: Anxiety and Depression, Tobacco use who presents to the [facility] ED on 01/16/23 with history of 2 to 3-week history of ongoingsinus congestion and pressure as well as facial discomfort in addition to cough with initially mild symptom improvement however patient worsened and at the timedid not have any fever, chills, diaphoresis, nausea, emesis or loose stools or any marked dyspnea days it is worsened again with no specific fever, chills, diaphoresis, nausea, emesis or loose stools nor any marked dyspnea prompting initial urgent care evaluation 01/04/23 with prescription for Augmentin at that time and recommendation for repeat evaluation in 7 to 10 days if no improvement or worsening symptoms with patient now presenting secondary to persistent ongoing coughing with constant right-sided chest discomfort that has not abated with coughing episode on evening prior to day of presentation with sensation of a popping during the coughing fit on the right side of the chest with right-sided chest discomfort specifically worsened with coughing and deep inspiratory effort with improvement with rest with concurrent sore throat prompting eventualED evaluation. Patient denies any shortness of breath, fever, chills, nausea ordyspnea and primarily presented secondary to discomfort to the right chest and persistent coughing. Patient denies any drug usage aside from cannabis including IV drug abuse. He denies any activities which would put him at risk for HIV. He reports being in a monogamous relationship with his girlfriend who is present. Work-up in the ED included T98.6, heart rate 67, BP 125/64, respiratory rate 18, 99% on room air, chest x-ray with a focal masslike density in the right upper lobe with possibly subtle lucent center likely representativeof pneumonia with a trace right pleural effusion, follow-up CTPA with multifocalpatchy masslike consolidation ranging from 4 to 1.5 cm within the upper lung zones with some cavitation occluding possible primary tuberculosis pneumonia versus possibility of cavitary pneumonia, potentially COVID could have a cavitary appearance but typically the viral pneumonia is not consolidated in theupper zones, differential also includes possible septic emboli although thought to be PE less likely given the primary upper lung predominance. In the ED patient administered naproxen 500 mg p.o. x1, Solu-Medrol 80 mg IV x1, diphenhydramine 25 mg IV x1 both administered secondary to history of rash with iodine administration as well as DuoNeb therapy and Levaquin 750 mg IV x1. PFSH Medical History Anxiety and depression Vaping nicotine dependence, tobacco product Medical History no medical history Home Medications sertraline 25 mg tablet (Zoloft) 25 mg PO DAILY 01/04/23 [History Last Taken Unknown] amoxicillin 875 mg-potassium clavulanate 125 mg tablet 1 tab PO BID 01/16/23 [History Last Taken Unknown] Allergy/AdvReac Type Severity Reaction Status Date / Time azithromycin Allergy Rash Verified 01/16/23 02:18 iodine Allergy Rash Verified 01/16/23 02:18 no significant family history (Denies marked maternal/paternal family history including HD, DM, CA.) Surgical History (Updated 01/16/23 @ 06:[address] Camryn Palma MD) History of tonsillectomy and adenoidectomy Surgical History no surgical history Social History (Updated 01/16/23 @ 06:[address] Camryn Palma MD) household members: other details: Lives with his parents. Smoking Status: Current every day smoker tobacco type: e-cigarettes Electronic Cigarette Use: with nicotine alcohol intake: current alcohol intake frequency: holidays/special occasions only substance use type: does not use ROS ROS Narrative Admission Review of Systems: CONSTITUTIONAL: No weight loss, fever, chills, + weakness or fatigue. HEENT: + Congestion, sore throat although improved. Eyes: No visual loss, blurred vision, double vision or yellow sclerae. Ears, Nose, Throat: No hearing loss, sneezing, runny nose. SKIN: No rash or itching, lesions, wounds. CARDIOVASCULAR: + chest pain, chest pressure or chest discomfort. No palpitations, edema, orthopnea, syncopal events. RESPIRATORY: + Cough occasionally productive. No shortness of breath, wheezing,hemoptysis. GASTROINTESTINAL: No anorexia, nausea, vomiting or diarrhea, abdominal pain, melena, BRBPR. GENITOURINARY: No dysuria, frequency, urgency or retention. NEUROLOGICAL: No headache, dizziness, syncope, paralysis, ataxia, numbness or tingling in the extremities, focal weakness, change in bowel or bladder control, seizure. MUSCULOSKELETAL: No muscle, back pain, joint pain or stiffness. HEMATOLOGIC: No anemia, bleeding or bruising. LYMPHATICS: No enlarged nodes. No history of splenectomy. PSYCHIATRIC: + history of depression or anxiety. ENDOCRINOLOGIC: No reports of sweating, cold or heat intolerance. No polyuria orpolydipsia. ALLERGIES: No history of asthma, hives, eczema or rhinitis. Vital Signs Vital Signs Vital Signs: 01/16/23 02:14 01/16/23 02:18 01/16/23 05:23 Temperature 98.6 F Temperature Source Temporal Pulse Rate 67 70 Respiratory Rate 18 16 Respiratory Pattern Normal Blood Pressure 125/64 H Blood Pressure Mean 84 Pulse Ox 99 Oxygen Delivery Method Room Air 01/16/23 05:19 Temperature Temperature Source Pulse Rate 70 Respiratory Rate 15 Respiratory Pattern Blood Pressure 129/64 H Blood Pressure Mean 85 Pulse Ox 96 Oxygen Delivery Method Room Air Weight Weight: 169 lb 1.513 oz Body Mass Index (BMI) 26.4 Physical Exam Narrative Physical Examination: General: Awake, alert, oriented x 3 and cooperative, seated upright in the ED bed, no acute distress. Skin: Normal color, normal turgor, no icterus, no cyanosis. HEENT: AT/NC, EOMI, PERRLA, MMM, no carotid bruits or JVD noted. Lungs: Mildly diminished, mildly decreased effort but no evidence of any distress, despite CT findings no rales, ronchi or wheezing. Heart: Currently regular rate and rhythm; no gallop, rub audible. Abdomen: Soft, NTTP, ND, mildly hyperactive BS, no HSM. Extremities: No cyanosis, clubbing, or edema. Neurological: Patient awake, alert, oriented as noted, cognitive function intact; pupils equally reactive to light and accommodation, cranial nerves II-XII grossly normal, moving all 4 extremities, no focal deficits, strength preserved. Psychiatric: Affect appears mildly fatigued otherwise normal, no acute evidence of depressive or anxiety feelings but does have underlying history. Results Lab / Micro Data Result Diagrams: 01/16/23 05:30 01/16/23 05:30 Labs: Laboratory Results - last 24 hr 01/16/23 05:30: WBC 10.8, RBC 4.56 L, Hgb 13.6, Hct 41.9, MCV 91.9, MCH 29.8, MCHC 32.5, RDW Std Deviation 42.9, RDW Coeff of Starr 12.8, Plt Count 282, MPV 9.5, Immature Gran % (Auto) 0.200, Neut % (Auto) 71.1 H, Lymph % (Auto) 14.9 L, Stanley % (Auto) 2.4, Eos % (Auto) 10.8 H, Baso % (Auto) 0.6, Absolute Neuts (auto)7.7, Absolute Lymphs (auto) 1.61, Nucleated RBC % 0 Micro: Microbiology 01/16/23 05:25 Nasal Secretion SARS-CoV-2 & FLU Antigen (Rapid) - Final Radiology Impression Chest X-Ray 01/16/23 02:57 IMPRESSION: Focal masslike density right upper lobe may have a subtle lucent center which most likely represents pneumonia. There is a trace right effusion. Given the question of possible cavitation in right effusion recommend consideration for CT scan of the chest Electronically Signed: Ginger Harris MD at 3:21 EST , Chest CTA 01/16/23 03:23 IMPRESSION: Multifocal patchy masslike consolidation ranging in size to 4 to 1.5 cm within the upper lung zones. See image #52 series 601. Some with cavitation. The differential includes the possibility of a post primary tuberculous pneumonia versus the possibility of cavitary pneumonia. Potentially covid could have a cavitary appearance but typically the viral pneumonia is not isolated to the upper lung zones.. The differential include the possibility of septic emboli although thought to BE less likely given the primarily upper lung predominance. Electronically Signed: Ginger Harris MD at 5:09 EST , ADDENDUM: 01/16/23 0520 IMPRESSION: Multifocal patchy masslike consolidation ranging in size to 4 to 1.5 cm within the upper lung zones. See image #52 series 601. Some with cavitation. The differential includes the possibility of a post primary tuberculous pneumonia versus the possibility of cavitary pneumonia. Potentially covid could have a cavitary appearance but typically the viral pneumonia is not isolated to the upper lung zones.. The differential include the possibility of septic emboli although thought to BE less likely given the primarily upper lung predominance. N.B. : The above Results were Read Back by Ginger Harris MD to Ryan Muñoz DO, and understanding confirmed on 01/16/2023 05:13:44 (ET). Electronically Signed: Ginger Harris MD at 5:09 EST , Assessment & Plan Assessment/Plan (1) Pneumonia: PLAN: Plan The patient is a 22 y/o M w/ PMHx: Anxiety and Depression, Tobacco use who presents to the [facility] ED on 01/16/23 with history of 2 to 3-week history of ongoingsinus congestion and pressure as well as facial discomfort in addition to cough with initially mild symptom improvement however patient worsened and at the timeprompting initial urgent care evaluation 01/04/23 with prescription for Augmentinat that time and recommendation for repeat evaluation in 7 to 10 days if no improvement or worsening symptoms with patient now presenting secondary to persistent ongoing coughing. #1. Right upper lobe pneumonia, unclear specific type with cavitation: Will admit to medical surgical floor, pending labs upon requested evaluation of patient, will obtain HIV/hepatitis panel, will obtain COVID PCR and full respiratory viral panel, will obtain sputum mycobacterial assessment, will obtain urine drug screen, maintain on oxygen with wean as tolerated to room air, continue ATC duonebs, PRN albuterol, maintain on IV Zosyn and vancomycin therapywith requested MRSA screen pending further evaluation, pulmonary consulted as well as infectious disease with airborn precautious pending their evaluation to be cautious, encourage HOB, IS parameters w/ pending sputum cultures as well as urine antigens in addition to testing as noted. #2. Anxiety and depression: We will continue patient home low-dose sertraline regimen. #3. Tobacco Abuse: Encouraged cessation, inpatient consultation per RT, NR if desired. #4. DVT prophylaxis: Low risk, encourage ambulation. Admission Evaluation Time spent evaluating chart, patient history, patient evaluation, care planning and discussion with specialists: 60 minutes. Charges/Coding Visit Charges Inpatient E&M: 88707 Init Hosp L2 01/16/23 0614 <Electronically signed by Camryn Palma MD> Cosigner Signature (if applicable): CC: Dr. Camryn Palma MD; Dr. Rachael Verdin MD~ Signed ADDENDUM by Dr. Camryn Palma MD on 01/16/23 at 0615 Addendum Labs resulted with CBC with WC 10.8, hemoglobin 13.6, platelet 282 without marked shift or significant increased immature granulocytes, CMP with glucose 112 otherwise not marked appearing, negative rapid SARS COVID and influenza antigen. 01/16/23 0615<Electronically signed by Camryn Palma MD> Cosigner Signature (if applicable): cc: Dr. Camryn Palma MD; Dr. Rachael Verdin MD ~* Signed [facility] Work Phone: Discharge summary Author Dr. Ty [facility] January 19, 2023 5:15pm Note Date/Time January 19, 2023 5:15 pm [facility] Medical Records Department [address] [place] [address] Instructions for Home/Discharge Instructions 01/19/23 1706 MR#: [id number] Acct: [id number] Name: ROYCE YUSUF Rep #:[id number] : 2000 22 From: Lilia Ty MD PCP: Dr. Rachael Verdin MD Status:ADM I N Discharge Instructions Diet Discharge Diet: No restrictions Activity Discharge Activity: Return to Normal Activity Follow Up Care Test Results: Test results from this visit will be discussed in further detail at your follow- up appointment, if applicable. Discharge Plan Admission Admit Date/Time: 01/16/23 05:42 Primary Reason for Your Visit: Cough Attending Provider: Lilia Ty Primary Care Provider: Rachael Verdin Consulting Providers: Camryn Palma ; Earnest Nelson ; Ivon Kim ; Amado Mejias Instructions Patient Instructions: E Cigarettes and Vaping, ED How to Quit Smoking Additional Instructions / Restrictions: DISCHARGE INSTRUCTIONS PLEASE READ *Please take this with you to your next doctors appointment* -Please call Dr. Briggs office (lung doctor) upon discharge to schedule hospital follow-up appointment within 2 weeks, and will be important that you make this follow-up appointment as you will need a repeat CT scan and lung function testing -It is highly recommended that you quit all tobacco products especially any formof vaping -You have several laboratory values that are pending which will need to be followed up on an outpatient basis. If you do not have access to the patient portal through [facility] would recommend that you sign up for this as results will be available there as well. -You can take ibuprofen or Motrin [id number] for pain control, do not exceed the recommended dosing for each respectively -Please call your primary care provider's office upon discharge to schedule a hospital follow up within 1 week. -For any concerning signs or symptoms please call 911 or proceed to the nearest emergency department Discharge Orders/Prescriptions Prescriptions: Continued sertraline [Zoloft] 25 mg tablet 50 mg PO QHS Discontinued amoxicillin-pot clavulanate 875-125 mg tablet 1 tab PO BID Referrals / Follow Up: Kirby Deng MD [Med Staff - Active Staff] - Within 2 Weeks (Please call Dr. Briggs office (lung doctor) upon discharge to schedule hospital follow-up appointment within 2 weeks) Rachael Verdin MD [Primary Care Provider] - Within 1 Week Disposition Disposition (needs filled in before D/C Order can be placed): Home, Self Care 01/19/23 0048<Electronically signed by Lilia Ty MD>Lilia Ty MD CC: Dr. Camryn Palma MD; Dr. Rachael Verdin MD; Dr. Earnest Nelson DO; Dr. Ivon Kim DO; Dr. Amado Mejias MD ~ Signed [facility] Work Phone: Evaluation note* Diagnosis Onset Date Resolution Status Acute sinusitis acute Chest pain acute Pneumonia acute [facility] Work Phone: Evaluation note* Diagnosis Onset Date Resolution Status Acute sinusitis acute Abnormal CT of the chest acu te Chest pain acute Pneumonia acute [facility] Work Phone: Evaluation noteNo assessment information available [facility] Work Phone: Evaluation note* Diagnosis Closed fracture of right zygomatic arch, initial encounter (HCC)- [facility] January 16, 2023 6:15am Note Date/Time January 16, 2023 5:57am [facility] Medical Records Department [address] [place] [address] History & Physical Exam 01/16/23 0553 MR#: [id number] Acct: [id number] Name: ROYCE YUSUF Rep #:[id number] : 2000 22 From: Camyrn Palma MD PCP: Dr. Rachael Verdin MD Status:REG E R Location: ED HPI - General General Date of Admission: 01/16/23 Date of Service: 01/16/23 Chief Complaint: Cough, persistent, atypical chest popping with coughing fits. HPI Narrative The patient is a 22 y/o M w/ PMHx: Anxiety and Depression, Tobacco use who presents to the [facility] ED on 01/16/23 with history of 2 to 3-week history of ongoingsinus congestion and pressure as well as facial discomfort in addition to cough with initially mild symptom improvement however patient worsened and at the timedid not have any fever, chills, diaphoresis, nausea, emesis or loose stools or any marked dyspnea days it is worsened again with no specific fever, chills, diaphoresis, nausea, emesis or loose stools nor any marked dyspnea prompting initial urgent care evaluation 01/04/23 with prescription for Augmentin at that time and recommendation for repeat evaluation in 7 to 10 days if no improvement or worsening symptoms with patient now presenting secondary to persistent ongoing coughing with constant right-sided chest discomfort that has not abated with coughing episode on evening prior to day of presentation with sensation of a popping during the coughing fit on the right side of the chest with right-sided chest discomfort specifically worsened with coughing and deep inspiratory effort with improvement with rest with concurrent sore throat prompting eventualED evaluation. Patient denies any shortness of breath, fever, chills, nausea ordyspnea and primarily presented secondary to discomfort to the right chest and persistent coughing. Patient denies any drug usage aside from cannabis including IV drug abuse. He denies any activities which would put him at risk for HIV. He reports being in a monogamous relationship with his girlfriend who is present. Work-up in the ED included T98.6, heart rate 67, BP 125/64, respiratory rate 18, 99% on room air, chest x-ray with a focal masslike density in the right upper lobe with possibly subtle lucent center likely representativeof pneumonia with a trace right pleural effusion, follow-up CTPA with multifocalpatchy masslike consolidation ranging from 4 to 1.5 cm within the upper lung zones with some cavitation occluding possible primary tuberculosis pneumonia versus possibility of cavitary pneumonia, potentially COVID could have a cavitary appearance but typically the viral pneumonia is not consolidated in theupper zones, differential also includes possible septic emboli although thought to be PE less likely given the primary upper lung predominance. In the ED patient administered naproxen 500 mg p.o. x1, Solu-Medrol 80 mg IV x1, diphenhydramine 25 mg IV x1 both administered secondary to history of rash with iodine administration as well as DuoNeb therapy and Levaquin 750 mg IV x1. PFSH Medical History Anxiety and depression Vaping nicotine dependence, tobacco product Medical History no medical history Home Medications sertraline 25 mg tablet (Zoloft) 25 mg PO DAILY 01/04/23 [History Last Taken Unknown] amoxicillin 875 mg-potassium clavulanate 125 mg tablet 1 tab PO BID 01/16/23 [History Last Taken Unknown] Allergy/AdvReac Type Severity Reaction Status Date / Time azithromycin Allergy Rash Verified 01/16/23 02:18 iodine Allergy Rash Verified 01/16/23 02:18 no significant family history (Denies marked maternal/paternal family history including HD, DM, CA.) Surgical History (Updated 01/16/23 @ 06:[address] Camryn Palma MD) History of tonsillectomy and adenoidectomy Surgical History no surgical history Social History (Updated 01/16/23 @ 06:[address] Camryn Palma MD) household members: other details: Lives with his parents. Smoking Status: Current every day smoker tobacco type: e-cigarettes Electronic Cigarette Use: with nicotine alcohol intake: current alcohol intake frequency: holidays/special occasions only substance use type: does not use ROS ROS Narrative Admission Review of Systems: CONSTITUTIONAL: No weight loss, fever, chills, + weakness or fatigue. HEENT: + Congestion, sore throat although improved. Eyes: No visual loss, blurred vision, double vision or yellow sclerae. Ears, Nose, Throat: No hearing loss, sneezing, runny nose. SKIN: No rash or itching, lesions, wounds. CARDIOVASCULAR: + chest pain, chest pressure or chest discomfort. No palpitations, edema, orthopnea, syncopal events. RESPIRATORY: + Cough occasionally productive. No shortness of breath, wheezing,hemoptysis. GASTROINTESTINAL: No anorexia, nausea, vomiting or diarrhea, abdominal pain, melena, BRBPR. GENITOURINARY: No dysuria, frequency, urgency or retention. NEUROLOGICAL: No headache, dizziness, syncope, paralysis, ataxia, numbness or tingling in the extremities, focal weakness, change in bowel or bladder control, seizure. MUSCULOSKELETAL: No muscle, back pain, joint pain or stiffness. HEMATOLOGIC: No anemia, bleeding or bruising. LYMPHATICS: No enlarged nodes. No history of splenectomy. PSYCHIATRIC: + history of depression or anxiety. ENDOCRINOLOGIC: No reports of sweating, cold or heat intolerance. No polyuria orpolydipsia. ALLERGIES: No history of asthma, hives, eczema or rhinitis. Vital Signs Vital Signs Vital Signs: 01/16/23 02:14 01/16/23 02:18 01/16/23 05:23 Temperature 98.6 F Temperature Source Temporal Pulse Rate 67 70 Respiratory Rate 18 16 Respiratory Pattern Normal Blood Pressure 125/64 H Blood Pressure Mean 84 Pulse Ox 99 Oxygen Delivery Method Room Air 01/16/23 05:19 Temperature Temperature Source Pulse Rate 70 Respiratory Rate 15 Respiratory Pattern Blood Pressure 129/64 H Blood Pressure Mean 85 Pulse Ox 96 Oxygen Delivery Method Room Air Weight Weight: 169 lb 1.513 oz Body Mass Index (BMI) 26.4 Physical Exam Narrative Physical Examination: General: Awake, alert, oriented x 3 and cooperative, seated upright in the ED bed, no acute distress. Skin: Normal color, normal turgor, no icterus, no cyanosis. HEENT: AT/NC, EOMI, PERRLA, MMM, no carotid bruits or JVD noted. Lungs: Mildly diminished, mildly decreased effort but no evidence of any distress, despite CT findings no rales, ronchi or wheezing. Heart: Currently regular rate and rhythm; no gallop, rub audible. Abdomen: Soft, NTTP, ND, mildly hyperactive BS, no HSM. Extremities: No cyanosis, clubbing, or edema. Neurological: Patient awake, alert, oriented as noted, cognitive function intact; pupils equally reactive to light and accommodation, cranial nerves II-XII grossly normal, moving all 4 extremities, no focal deficits, strength preserved. Psychiatric: Affect appears mildly fatigued otherwise normal, no acute evidence of depressive or anxiety feelings but does have underlying history. Results Lab / Micro Data Result Diagrams: 01/16/23 05:30 01/16/23 05:30 Labs: Laboratory Results - last 24 hr 01/16/23 05:30: WBC 10.8, RBC 4.56 L, Hgb 13.6, Hct 41.9, MCV 91.9, MCH 29.8, MCHC 32.5, RDW Std Deviation 42.9, RDW Coeff of Starr 12.8, Plt Count 282, MPV 9.5, Immature Gran % (Auto) 0.200, Neut % (Auto) 71.1 H, Lymph % (Auto) 14.9 L, Stanley % (Auto) 2.4, Eos % (Auto) 10.8 H, Baso % (Auto) 0.6, Absolute Neuts (auto)7.7, Absolute Lymphs (auto) 1.61, Nucleated RBC % 0 Micro: Microbiology 01/16/23 05:25 Nasal Secretion SARS-CoV-2 & FLU Antigen (Rapid) - Final Radiology Impression Chest X-Ray 01/16/23 02:57 IMPRESSION: Focal masslike density right upper lobe may have a subtle lucent center which most likely represents pneumonia. There is a trace right effusion. Given the question of possible cavitation in right effusion recommend consideration for CT scan of the chest Electronically Signed: Ginger Harris MD at 3:21 EST , Chest CTA 01/16/23 03:23 IMPRESSION: Multifocal patchy masslike consolidation ranging in size to 4 to 1.5 cm within the upper lung zones. See image #52 series 601. Some with cavitation. The differential includes the possibility of a post primary tuberculous pneumonia versus the possibility of cavitary pneumonia. Potentially covid could have a cavitary appearance but typically the viral pneumonia is not isolated to the upper lung zones.. The differential include the possibility of septic emboli although thought to BE less likely given the primarily upper lung predominance. Electronically Signed: Ginger Harris MD at 5:09 EST , ADDENDUM: 01/16/23 0520 IMPRESSION: Multifocal patchy masslike consolidation ranging in size to 4 to 1.5 cm within the upper lung zones. See image #52 series 601. Some with cavitation. The differential includes the possibility of a post primary tuberculous pneumonia versus the possibility of cavitary pneumonia. Potentially covid could have a cavitary appearance but typically the viral pneumonia is not isolated to the upper lung zones.. The differential include the possibility of septic emboli although thought to BE less likely given the primarily upper lung predominance. N.B. : The above Results were Read Back by Ginger Harris MD to Ryan Muñoz DO, and understanding confirmed on 01/16/2023 05:13:44 (ET). Electronically Signed: Ginger Harris MD at 5:09 EST , Assessment & Plan Assessment/Plan (1) Pneumonia: PLAN: Plan The patient is a 22 y/o M w/ PMHx: Anxiety and Depression, Tobacco use who presents to the [facility] ED on 01/16/23 with history of 2 to 3-week history of ongoingsinus congestion and pressure as well as facial discomfort in addition to cough with initially mild symptom improvement however patient worsened and at the timeprompting initial urgent care evaluation 01/04/23 with prescription for Augmentinat that time and recommendation for repeat evaluation in 7 to 10 days if no improvement or worsening symptoms with patient now presenting secondary to persistent ongoing coughing. #1. Right upper lobe pneumonia, unclear specific type with cavitation: Will admit to medical surgical floor, pending labs upon requested evaluation of patient, will obtain HIV/hepatitis panel, will obtain COVID PCR and full respiratory viral panel, will obtain sputum mycobacterial assessment, will obtain urine drug screen, maintain on oxygen with wean as tolerated to room air, continue ATC duonebs, PRN albuterol, maintain on IV Zosyn and vancomycin therapywith requested MRSA screen pending further evaluation, pulmonary consulted as well as infectious disease with airborn precautious pending their evaluation to be cautious, encourage HOB, IS parameters w/ pending sputum cultures as well as urine antigens in addition to testing as noted. #2. Anxiety and depression: We will continue patient home low-dose sertraline regimen. #3. Tobacco Abuse: Encouraged cessation, inpatient consultation per RT, NR if desired. #4. DVT prophylaxis: Low risk, encourage ambulation. Admission Evaluation Time spent evaluating chart, patient history, patient evaluation, care planning and discussion with specialists: 60 minutes. Charges/Coding Visit Charges Inpatient E&M: 49932 Init Hosp L2 01/16/23 0614 <Electronically signed by Camryn Palma MD> Cosigner Signature (if applicable): CC: Dr. Camryn Palma MD; Dr. Rachael Verdin MD~ Signed ADDENDUM by Dr. Camryn Palma MD on 01/16/23 at 0615 Addendum Labs resulted with CBC with WC 10.8, hemoglobin 13.6, platelet 282 without marked shift or significant increased immature granulocytes, CMP with glucose 112 otherwise not marked appearing, negative rapid SARS COVID and influenza antigen. 01/16/23614<Electronically signed by Camryn Palma MD> Cosigner Signature (if applicable): cc: Dr. Camryn Palma MD; Dr. Rachael Verdin MD ~* Signed [facility] Work Phone: Hospital Discharge instructionsAdditional Instructions Thank you for trusting us with your care today! Your labs images were unremarkable. No sign of damage to your heart or other life-threatening issues were identified Please take Tylenol (2 pills, 650 mg), ibuprofen (2 pills, 400 mg) every 6 hours as needed for pain and fever control. Please return to the emergency department if your symptoms change or worsen. Please follow with your primary care physician for further outpatient evaluation and management.[facility] Work Phone: Instructions* Name Dates Details Patient Instructions Indication:Tobacco use Start:02-Jun-2022 Instruction Type:Provider Instructions for Treatment How to Access Health Informa tion Online using Patient Portal and [employer] Apps Indication:Tobacco use Start:02-Jun-2022 Instruction Type:Patient Education How to access health informa tion online Indication:Tobacco use Start:02-May-2020 Instruction Type:Patient Education How to access health informa tion online - Detail Indication:Tobacco use Start:02-May-2020 Instruction Type:Patient Education Patient Instructions Indication:BMI 25.0-25.9,adult Start:02-May-2020 Instruction Type:Provider Instructions for Treatment How to access health informa tion online Indication:Tobacco use Start:08-Feb-2020 Instruction Type:Patient Education How to access health informa tion online - Detail Indication:Tobacco use Start:08-Feb-2020 Instruction Type:Patient Education Patient Instructions Indication:Tobacco use Start:08-Feb-2020 Instruction Type:Provider Instructions for Treatment How to access health informa tion online Indication:Tobacco use Start:01-Feb-2020 Instruction Type:Patient Education How to access health informa tion online - Detail Indication:Tobacco use Start:01-Feb-2020 Instruction Type:Patient Education Patient Instructions Indication:Tobacco use Start:01-Feb-2020 Instruction Type:Provider Instructions for Treatment How to access health informa tion online Indication:Tobacco use Start:13-Feb-2019 Instruction Type:Patient Education How to access health informa tion online - Detail Indication:Tobacco use Start:13-Feb-2019 Instruction Type:Patient Education Patient Instructions Indication:Tobacco use Start:13-Feb-2019 Instruction Type:Provider Instructions for Treatment How to access health informa tion online Indication:BMI 25.0-25.9,adult Start:22-Aug-2018 Instruction Type:Patient Education How to access health informa tion online - Detail Indication:BMI 25.0-25.9,adult Start:22-Aug-2018 Instruction Type:Patient Education Patient Instructions Indication:BMI 25.0-25.9,adult Start:22-Aug-2018 Instruction Type:Provider Instructions for Treatment [facility] Work Phone: Instructions* Name Dates Details Patient Instructions Indication:BMI 25.0-25.9,adult Start:16-Jul-2022 Instruction Type:Provider Instructions for Treatment How to Access Health Informa tion Online using Patient Portal and 3rd [employer] Apps Indication:BMI 25.0-25.9,adult Start:16-Jul-2022 Instruction Type:Patient Education Patient Instructions Indication:Tobacco use Start:02-Jun-2022 Instruction Type:Provider Instructions for Treatment How to Access Health Informa tion Online using Patient Portal and [employer]rd [employer] Apps Indication:Tobacco use Start:02-Jun-2022 Instruction Type:Patient Education How to access health informa tion online Indication:Tobacco use Start:02-May-2020 Instruction Type:Patient Education How to access health informa tion online - Detail Indication:Tobacco use Start:02-May-2020 Instruction Type:Patient Education Patient Instructions Indication:BMI 25.0-25.9,adult Start:02-May-2020 Instruction Type:Provider Instructions for Treatment How to access health informa tion online Indication:Tobacco use Start:08-Feb-2020 Instruction Type:Patient Education How to access health informa tion online - Detail Indication:Tobacco use Start:08-Feb-2020 Instruction Type:Patient Education Patient Instructions Indication:Tobacco use Start:08-Feb-2020 Instruction Type:Provider Instructions for Treatment How to access health informa tion online Indication:Tobacco use Start:01-Feb-2020 Instruction Type:Patient Education How to access health informa tion online - Detail Indication:Tobacco use Start:01-Feb-2020 Instruction Type:Patient Education Patient Instructions Indication:Tobacco use Start:01-Feb-2020 Instruction Type:Provider Instructions for Treatment How to access health informa tion online Indication:Tobacco use Start:13-Feb-2019 Instruction Type:Patient Education How to access health informa tion online - Detail Indication:Tobacco use Start:13-Feb-2019 Instruction Type:Patient Education Patient Instructions Indication:Tobacco use Start:13-Feb-2019 Instruction Type:Provider Instructions for Treatment How to access health informa tion online Indication:BMI 25.0-25.9,adult Start:22-Aug-2018 Instruction Type:Patient Education How to access health informa tion online - Detail Indication:BMI 25.0-25.9,adult Start:22-Aug-2018 Instruction Type:Patient Education Patient Instructions Indication:BMI 25.0-25.9,adult Start:22-Aug-2018 Instruction Type:Provider Instructions for Treatment [facility] Work Phone: Instructions* Name Dates Details Patient Instructions Indication:BMI 25.0-25.9,adult Start:16-Jul-2022 Instruction Type:Provider Instructions for Treatment How to Access Health Informa tion Online using Patient Portal and [employer]rd [employer] Apps Indication:BMI 25.0-25.9,adult Start:16-Jul-2022 Instruction Type:Patient Education Patient Instructions Indication:Tobacco use Start:02-Jun-2022 Instruction Type:Provider Instructions for Treatment How to Access Health Informa tion Online using Patient Portal and [employer] Apps Indication:Tobacco use Start:02-Jun-2022 Instruction Type:Patient Education How to access health informa tion online Indication:Tobacco use Start:02-May-2020 Instruction Type:Patient Education How to access health informa tion online - Detail Indication:Tobacco use Start:02-May-2020 Instruction Type:Patient Education Patient Instructions Indication:BMI 25.0-25.9,adult Start:02-May-2020 Instruction Type:Provider Instructions for Treatment How to access health informa tion online Indication:Tobacco use Start:08-Feb-2020 Instruction Type:Patient Education How to access health informa tion online - Detail Indication:Tobacco use Start:08-Feb-2020 Instruction Type:Patient Education Patient Instructions Indication:Tobacco use Start:08-Feb-2020 Instruction Type:Provider Instructions for Treatment How to access health informa tion online Indication:Tobacco use Start:01-Feb-2020 Instruction Type:Patient Education How to access health informa tion online - Detail Indication:Tobacco use Start:01-Feb-2020 Instruction Type:Patient Education Patient Instructions Indication:Tobacco use Start:01-Feb-2020 Instruction Type:Provider Instructions for Treatment How to access health informa tion online Indication:Tobacco use Start:13-Feb-2019 Instruction Type:Patient Education How to access health informa tion online - Detail Indication:Tobacco use Start:13-Feb-2019 Instruction Type:Patient Education Patient Instructions Indication:Tobacco use Start:13-Feb-2019 Instruction Type:Provider Instructions for Treatment How to access health informa tion online Indication:BMI 25.0-25.9,adult Start:22-Aug-2018 Instruction Type:Patient Education How to access health informa tion online - Detail Indication:BMI 25.0-25.9,adult Start:22-Aug-2018 Instruction Type:Patient Education Patient Instructions Indication:BMI 25.0-25.9,adult Start:22-Aug-2018 Instruction Type:Provider Instructions for Treatment [facility] Work Phone: Instructions* Name Dates Details Patient Instructions Indication:BMI 25.0-25.9,adult Start:16-Jul-2022 Instruction Type:Provider Instructions for Treatment How to Access Health Informa tion Online using Patient Portal and [employer]rd [employer] Apps Indication:BMI 25.0-25.9,adult Start:16-Jul-2022 Instruction Type:Patient Education Patient Instructions Indication:Tobacco use Start:02-Jun-2022 Instruction Type:Provider Instructions for Treatment How to Access Health Informa tion Online using Patient Portal and [employer]rd [employer] Apps Indication:Tobacco use Start:02-Jun-2022 Instruction Type:Patient Education How to access health informa tion online Indication:Tobacco use Start:02-May-2020 Instruction Type:Patient Education How to access health informa tion online - Detail Indication:Tobacco use Start:02-May-2020 Instruction Type:Patient Education Patient Instructions Indication:BMI 25.0-25.9,adult Start:02-May-2020 Instruction Type:Provider Instructions for Treatment How to access health informa tion online Indication:Tobacco use Start:08-Feb-2020 Instruction Type:Patient Education How to access health informa tion online - Detail Indication:Tobacco use Start:08-Feb-2020 Instruction Type:Patient Education Patient Instructions Indication:Tobacco use Start:08-Feb-2020 Instruction Type:Provider Instructions for Treatment How to access health informa tion online Indication:Tobacco use Start:01-Feb-2020 Instruction Type:Patient Education How to access health informa tion online - Detail Indication:Tobacco use Start:01-Feb-2020 Instruction Type:Patient Education Patient Instructions Indication:Tobacco use Start:01-Feb-2020 Instruction Type:Provider Instructions for Treatment How to access health informa tion online Indication:Tobacco use Start:13-Feb-2019 Instruction Type:Patient Education How to access health informa tion online - Detail Indication:Tobacco use Start:13-Feb-2019 Instruction Type:Patient Education Patient Instructions Indication:Tobacco use Start:13-Feb-2019 Instruction Type:Provider Instructions for Treatment How to access health informa tion online Indication:BMI 25.0-25.9,adult Start:22-Aug-2018 Instruction Type:Patient Education How to access health informa tion online - Detail Indication:BMI 25.0-25.9,adult Start:22-Aug-2018 Instruction Type:Patient Education Patient Instructions Indication:BMI 25.0-25.9,adult Start:22-Aug-2018 Instruction Type:Provider Instructions for Treatment [facility] Work Phone: Instructions* Name Dates Details Patient Instructions Indication:Toothache Start:23-Feb-2023 Instruction Type:Provider Instructions for Treatment How to Access Health Informa tion Online using Patient Portal and [employer]rd [employer] Apps Indication:Toothache Start:23-Feb-2023 Instruction Type:Patient Education Patient Instructions Indication:BMI 25.0-25.9,adult Start:16-Jul-2022 Instruction Type:Provider Instructions for Treatment How to Access Health Informa tion Online using Patient Portal and [employer]rd [employer] Apps Indication:BMI 25.0-25.9,adult Start:16-Jul-2022 Instruction Type:Patient Education Patient Instructions Indication:Tobacco use Start:02-Jun-2022 Instruction Type:Provider Instructions for Treatment How to Access Health Informa tion Online using Patient Portal and [employer]rd [employer] Apps Indication:Tobacco use Start:02-Jun-2022 Instruction Type:Patient Education How to access health informa tion online Indication:Tobacco use Start:02-May-2020 Instruction Type:Patient Education How to access health informa tion online - Detail Indication:Tobacco use Start:02-May-2020 Instruction Type:Patient Education Patient Instructions Indication:BMI 25.0-25.9,adult Start:02-May-2020 Instruction Type:Provider Instructions for Treatment How to access health informa tion online Indication:Tobacco use Start:08-Feb-2020 Instruction Type:Patient Education How to access health informa tion online - Detail Indication:Tobacco use Start:08-Feb-2020 Instruction Type:Patient Education Patient Instructions Indication:Tobacco use Start:08-Feb-2020 Instruction Type:Provider Instructions for Treatment How to access health informa tion online Indication:Tobacco use Start:01-Feb-2020 Instruction Type:Patient Education How to access health informa tion online - Detail Indication:Tobacco use Start:01-Feb-2020 Instruction Type:Patient Education Patient Instructions Indication:Tobacco use Start:01-Feb-2020 Instruction Type:Provider Instructions for Treatment How to access health informa tion online Indication:Tobacco use Start:13-Feb-2019 Instruction Type:Patient Education How to access health informa tion online - Detail Indication:Tobacco use Start:13-Feb-2019 Instruction Type:Patient Education Patient Instructions Indication:Tobacco use Start:13-Feb-2019 Instruction Type:Provider Instructions for Treatment How to access health informa tion online Indication:BMI 25.0-25.9,adult Start:22-Aug-2018 Instruction Type:Patient Education How to access health informa tion online - Detail Indication:BMI 25.0-25.9,adult Start:22-Aug-2018 Instruction Type:Patient Education Patient Instructions Indication:BMI 25.0-25.9,adult Start:22-Aug-2018 Instruction Type:Provider Instructions for Treatment [facility] Work Phone: Instructions* Name Dates Details Patient Instructions Indication:Toothache Start:23-Feb-2023 Instruction Type:Provider Instructions for Treatment How to Access Health Informa tion Online using Patient Portal and [employer]rd [employer] Apps Indication:Toothache Start:23-Feb-2023 Instruction Type:Patient Education Patient Instructions Indication:BMI 25.0-25.9,adult Start:16-Jul-2022 Instruction Type:Provider Instructions for Treatment How to Access Health Informa tion Online using Patient Portal and [employer]rd [employer] Apps Indication:BMI 25.0-25.9,adult Start:16-Jul-2022 Instruction Type:Patient Education Patient Instructions Indication:Tobacco use Start:02-Jun-2022 Instruction Type:Provider Instructions for Treatment How to Access Health Informa tion Online using Patient Portal and [employer]rd [employer] Apps Indication:Tobacco use Start:02-Jun-2022 Instruction Type:Patient Education How to access health informa tion online Indication:Tobacco use Start:02-May-2020 Instruction Type:Patient Education How to access health informa tion online - Detail Indication:Tobacco use Start:02-May-2020 Instruction Type:Patient Education Patient Instructions Indication:BMI 25.0-25.9,adult Start:02-May-2020 Instruction Type:Provider Instructions for Treatment How to access health informa tion online Indication:Tobacco use Start:08-Feb-2020 Instruction Type:Patient Education How to access health informa tion online - Detail Indication:Tobacco use Start:08-Feb-2020 Instruction Type:Patient Education Patient Instructions Indication:Tobacco use Start:08-Feb-2020 Instruction Type:Provider Instructions for Treatment How to access health informa tion online Indication:Tobacco use Start:01-Feb-2020 Instruction Type:Patient Education How to access health informa tion online - Detail Indication:Tobacco use Start:01-Feb-2020 Instruction Type:Patient Education Patient Instructions Indication:Tobacco use Start:01-Feb-2020 Instruction Type:Provider Instructions for Treatment How to access health informa tion online Indication:Tobacco use Start:13-Feb-2019 Instruction Type:Patient Education How to access health informa tion online - Detail Indication:Tobacco use Start:13-Feb-2019 Instruction Type:Patient Education Patient Instructions Indication:Tobacco use Start:13-Feb-2019 Instruction Type:Provider Instructions for Treatment How to access health informa tion online Indication:BMI 25.0-25.9,adult Start:22-Aug-2018 Instruction Type:Patient Education How to access health informa tion online - Detail Indication:BMI 25.0-25.9,adult Start:22-Aug-2018 Instruction Type:Patient Education Patient Instructions Indication:BMI 25.0-25.9,adult Start:22-Aug-2018 Instruction Type:Provider Instructions for Treatment [facility] Work Phone: reason for referral (narrative)No reason for referral [facility] Work Phone: Family History No Family History Records FoundUnknown Family Member Name Dates Details Maternal Grandmother Comments:brain tumors Status:Active Paternal Grandfather Comments:lung cancer Status:Active Paternal Uncle Comments:high blood pressure Status:Active Unknown Family Member Name Dates Details Maternal Grandmother Comments:brain tumors Status:Active Paternal Grandfather Comments:lung cancer Status:Active Paternal Uncle Comments:high blood pressure Status:Active Unknown Family Member Name Dates Details Maternal Grandmother Comments:brain tumors Status:Active Paternal Grandfather Comments:lung cancer Status:Active Paternal Uncle Comments:high blood pressure Status:Active Unknown Family Member Name Dates Details Maternal Grandmother Comments:brain tumors Status:Active Paternal Grandfather Comments:lung cancer Status:Active Paternal Uncle Comments:high blood pressure Status:Active Unknown Family Member Name Dates Details Maternal Grandmother Comments:brain tumors Status:Active Paternal Grandfather Comments:lung cancer Status:Active Paternal Uncle Comments:high blood pressure Status:Active Unknown Family Member Name Dates Details Maternal Grandmother Comments:brain tumors Status:Active Paternal Grandfather Comments:lung cancer Status:Active Paternal Uncle Comments:high blood pressure Status:Active Unknown Family Member Name Dates Details Maternal Grandmother Comments:brain tumors Status:Active Paternal Grandfather Comments:lung cancer Status:Active Paternal Uncle Comments:high blood pressure Status:Active Unknown Family Member Name Dates Details Maternal Grandmother Comments:brain tumors Status:Active Paternal Grandfather Comments:lung cancer Status:Active Paternal Uncle Comments:high blood pressure Status:Active Unknown Family Member Name Dates Details Maternal Grandmother Comments:brain tumors Status:Active Paternal Grandfather Comments:lung cancer Status:Active Paternal Uncle Comments:high blood pressure Status:Active Instructions Name Dates Details Tobacco use : How to access health information online Indication:Tobacco use Tobacco use : How to access health information online - Detail Indication:Tobacco use Tobacco use : Patient Instru ctions Indication:Tobacco use BMI 25.0-25.9,adult : How to access health information online Indication:BMI 25.0-25.9,adult BMI 25.0-25.9,adult : How to access health information online - Detail Indication:BMI 25.0-25.9,adult BMI 25.0-25.9,adult : Patien t Instructions Indication:BMI 25.0-25.9,adult Name Dates Details Dizziness : How to access he alth information online Indication:Dizziness Dizziness : How to access he alth information online - Detail Indication:Dizziness Dizziness : Patient Instruct ions Indication:Dizziness Tobacco use : How to access health information online Indication:Tobacco use Tobacco use : How to access health information online - Detail Indication:Tobacco use Tobacco use : Patient Instru ctions Indication:Tobacco use BMI 25.0-25.9,adult : How to access health information online Indication:BMI 25.0-25.9,adult BMI 25.0-25.9,adult : How to access health information online - Detail Indication:BMI 25.0-25.9,adult BMI 25.0-25.9,adult : Patien t Instructions Indication:BMI 25.0-25.9,adult Summary Purpose Advance Directives No Advanced Directives Records Found Advance Directive Response Recorded Date/ Time Living Will No January 16 2:18am Power of Assisted Living Executive Director No January 16, 2023 2:18am Advance Directive Response Recorded Date/ Time Living Will No January 16 8:06am Power of Assisted Living Executive Director No January 16, 2023 8:06am Advance Directive Response Recorded Date/ Time Do you have a Healthcare Power of Assisted Living Executive Director? No May 22, 2025 2:27pm Chief Complaint and Reason for Visit Chief Complaint COLD SYMPTOMS/CHEST CONGESTION RUL CAVITARY PNEUMONIA CP Reason for Visit Acute sinusitis Chest pain Pneumonia Chief Complaint COLD SYMPTOMS/CHEST CONGESTION RUL CAVITARY PNEUMONIA CP RUL CAVITARY PNEUMONIA RUL CAVITARY PNEUMONIA RUL CAVITARY PNEUMONIA RUL CAVITARY PNEUMONIA RUL CAVITARY PNEUMONIA Reason for Visit Acute sinusitis Abnormal CT of the chest Chest pain Pneumonia Chief Complaint Admit Date NAUSEA/BA February 06, 2025 5:4 2pm chest pain May 22, 2025 2:06p m Additional Source Comments (unrecognized sect ion and content) No Status Records FoundNo Status Records FoundNo Status Records FoundNo Status Records FoundNo Status Records Found INFORMATION SOURCE (unrecogn ized section and content) DATE CREATED AUTHOR 02/16/2019 [facility] DATE CREATED AUTHOR AUTHOR'S ORGANIZ ATION 06/11/2020 [facility] DATE CREATED AUTHOR AUTHOR'S ORGANIZ ATION 06/02/2025 [facility] DATE CREATED AUTHOR AUTHOR'S ORGANIZ ATION [facility]/24/2025 [facility] DATE CREATED AUTHOR AUTHOR'S ORGANIZ ATION 08/22/2025 [facility] Care Teams (unrecognized sec tion and content) Team Status: Active Member Role Status Dates No Primary Care Physician Family Provider Active Dr. Rachael Verdin MD Primary Care Provider Active Team Status: Inactive Member Role Status Dates Myranda Ciesa GROUP ACCOUNT DIRECTOR, GROUP ACCOUNT DIRECTOR-C Primary Care Provider, Referring P lillianjazmín Active Royce Yusuf PA, PA Attending Provider Active Team Status: Active Member Role Status Dates Dr. Ryan Muñoz , DO Emergency Provider Active Dr. Rachael Verdin MD Primary Care Provider Active Dr. Camryn Palma MD Attending Provider Active Team Status: Active Member Role Status Dates Dr. Ryan Muñoz , DO Emergency Provider Active Dr. Rachael Verdin MD Primary Care Provider Active Dr. Camryn Palma MD Admit Provider, Other Provider Active Dr. Ivon Kim , DO Attending Provider Active Team Status: Active Member Role Status Dates Dr. Ryan Muñoz , DO Emergency Provider Active Dr. Rachael Verdin MD Primary Care Provider Active Dr. Camryn Palma MD Admit Provider, Other Provider Active Dr. Earnest Nelson , DO Other Provider Active Dr. Lilia Ty MD Other Provider Active Dr. Ivon Kim , DO Other Provider Active Dr. Amado Mejias MD Other Provider Active Dr. Kirby Deng MD Attending Provider Active Team Status: Active Member Role Status Dates Dr. Ryan Muñoz , DO Emergency Provider Active Dr. Rachael Verdin MD Primary Care Provider Active Dr. Camryn Palma MD Admit Provider, Other Provider Active Dr. Earnest Nelson , DO Other Provider Active Dr. Lilia Ty MD Attending Provider, Other Provid er Active Dr. Ivon Kim , DO Other Provider Active Dr. Amado Mejias MD Other Provider Active Team Status: Inactive Member Role Status Dates Dr. Ryan Muñoz , DO Emergency Provider Active Dr. Rachael Verdin MD Primary Care Provider Active Dr. Camryn Palma MD Admit Provider, Other Provider Active Dr. Earnest Nelson , DO Other Provider Active Dr. Lilia Ty MD Attending Provider Active Dr. Ivon Kim , DO Other Provider Active Dr. Amado Mejias MD Other Provider Active Team Status: Active Member Role/Relationship Status Dates Dr. Lindy Villegas , DO Primary Care Provider Active Team Status: Inactive Member Role/Relationship Status Dates Dr. Lindy Villegas DO Primary Care Provider Active Start: February 06, 2025 End: February 06, 2025 Dr. Lindy Villegas , DO Referring Provider Active Start: February 06, 2025 End: February 06, 2025 Jagdeep Ribeiro PA, PA Attending Provider Active Start: February 06, 2025 End: February 06, 2025 Team Status: Inactive Member Role/Relationship Status Dates Dr. Lindy Villegas , DO Primary Care Provider Active Start: May 22, 2025 End: May 22, 2025 Dr. Sai Herrera , DO Referring Provider Active Start: May 22, 2025 End: May 22, 2025 Dr. Sai Herrera , DO Emergency Provider Active Start: May 22, 2025 End: May 22, 2025 Manual Plate Filler Relationship Specialty Start Date End Date System, Provider Not In PCP - General 07/24/25 Goals (unrecognized section and content) Goals may be documented in a n alternate sectionGoals may be documented in an alternate section Reason for Visit (unrecogniz ed section and content) Reason Comments Consult FOR RECORDS PERTAINING TO PATIENTS WHO ARE OR HAVE BEEN ENROLLED IN A CHEMICAL DEPENDENCY/SUBSTANCEABUSE PROGRAM, SOME INFORMATION MAY BE OMITTED. This clinical summary was aggregated from multiple sources. Caution should be exercised in using it in the provision of clinical care. This summary normalizes information from multiple sources, and as a consequence, information in this document may materially change the coding, format and clinical context of patient data. In addition, data may be omitted in some cases. CLINICAL DECISIONS SHOULD BE BASED ON THE PRIMARY CLINICAL RECORDS. [employer] provides no warranty or guarantee of the accuracy or completeness of information in this document.
[2025-11-06 09:42] LABS: Mucous, Urine 2+ /hpf (<or=2+); Squamous Epithelial Cells - UA 0-5 SEEN /hpf (0-5)
[2025-11-06 09:44] VITALS: BP 106/55; PULSE 48; RESP 14; O2SAT 99
[2025-11-06 10:09] LABS: AST(SGOT) 17 U/L (<=37); Alanine Aminotransfer ALT/SGPT 13 U/L (<=46); Albumin, Serum 4.8 g/dL (3.5-5.0); Alkaline Phosphatase 63 U/L (40-129); Anion Gap 10 (5-15); BUN 10 mg/dL (4-19); BUN/Creat Ratio 10.6 RATIO (10-20); Calcium,Total 9.5 mg/dL (7.6-11.0); Carbon Dioxide 26.3 mmol/L (21.0-32.0); Chloride 104 mmol/L (98-108); Globulin 2.6 g/dL (2.2-4.2); Glucose 97 mg/dL (70-99); Lipase 14 U/L (13-75); Potassium 4.2 mmol/L (3.3-5.1)
[2025-11-06 11:00] VITALS: BP 108/56; PULSE 48; RESP 14; O2SAT 99
[2025-11-06 11:39] VITALS: BP 109/72; PULSE 56; RESP 14; TEMP 36.6; O2SAT 99
[2025-11-06 11:54] VITALS: BP 109/72; PULSE 56; RESP 14; TEMP 36.6; O2SAT 99
== END 2025-11-06 11:54 | disposition home or self-care (01) ==
PROVIDERS: Emergency Provider Emergency Medicine; PCP Internal Medicine; Visit Provider Emergency Medicine
DX: R10.31 Right lower quadrant pain (principal); R10.32 Left lower quadrant pain; R11.2 Nausea with vomiting, unspecified; R19.7 Diarrhea, unspecified; F17.290 Nicotine dependence, other tobacco product, uncomplicated
CPT/HCPCS: 74176; 80053; 81001; 83690; 85025; 96361; 96374; 99283; A4216; J2405